=== PATIENT | male | born 1995 | race Caucasian/White ===

== ENCOUNTER 2018-12-09 10:45 | Observation (INO) | payer OTHER ==
[~2018-12-09] VITALS: Ht 172.7 cm; Wt 119.6 kg
[~2018-12-09 10:45] MED LIST: B Complex #11 EACH PO; DICLOFENAC SOD100 G1 TOP; DULO30 PO; Ferrous Sulfat325 MG; HYDACE10B PO; HYDCHL12.5 PO; IBUP800 PO; LAMOTRIGINE OD200 MG PO; LISI5 PO; Lamictal200 MG PO; METF500 PO; MULVITA PO; Multiple Vitam1 EAC1 PO; POLY500 PO; PREG100 PO; Papaya1 EACH PO; Prilosec Otc20 MG; TRAZ100 PO; Vitamin D2000 UNIT PO; Zantac150 MG PO; Zofran8 MG PO; [UNRECOGNIZED DRUG - REMARK]
[2018-12-09] MEDS ORDERED: Norco 5-325 Ta1 EACH (10:55)
--- NOTE | 2018-12-09 11:49 | NUR ---
12/09/18 1149 Danae Segura ([place] O2 INCREASED TO 15L AT [address] FARIAS.
--- NOTE | 2018-12-09 12:44 | NUR ---
12/09/18 1243 Alissa Blackwood PATIENT COMPLAINS OF PAIN MID STERNAL WITH COUGHING, BRINGING UP A LITTLE PHLEGM, COUGHS AND GAGS THEN SMALL EMISIS, WITH INCREASING MID STERNAL PAIN, PAIN IS WORSE WITH BREATHING AND COUGHING AND WORSE WITH EMISIS, STATES HAS MANY RANDOM SIMILAR EPISODES AT HOME WITH EPISODES OF COUGHING HEART BURN AND COUGHING.
[2018-12-09 15:55] LABS: BASOPHILS ABSOLUTE AUTO 0.03 K/mm3 (0.00-0.23); BASOPHILS PERCENT AUTO 1 % (0-2); EOSINOPHILS ABSOLUTE AUTO 0.04 K/mm3 (0.00-0.68); EOSINOPHILS PERCENT AUTO 1 % (0-6); Hematocrit 33.6 % (37.0-53.0); Hemoglobin 9.4 g/dL (13.5-17.5); IMMATURE GRAN ABSOLUTE AUTO 0.03 K/mm3 (0.00-0.10); IMMATURE GRAN PERCENT AUTO 1 % (0-1); LYMPHOCYTES ABSOLUTE AUTO 0.69 K/mm3 (0.84-5.20); LYMPHOCYTES PERCENT AUTO 11 % (21-46); MONOCYTES PERCENT AUTO 5 % (4-13); Mean Corpuscular HGB 22.2 pg (26.0-34.0); Mean Corpuscular Volume 79 fL (80-100); Mean Platelet Volume 11.3 fL (9.1-12.4); NEUTROPHILS ABSOLUTE AUTO 5.01 K/mm3 (1.96-9.15); NEUTROPHILS PERCENT AUTO 82 % (41-73); Platelet Count 262 K/mm3 (150-400); RDW Coefficient Variation 18.8 % (11.7-14.2); RDW Standard Deviation 50.7 fL (35.1-46.3); Red Blood Cell Count 4.24 M/mm3 (4.30-5.90)
[2018-12-09 16:26] LABS: Bun/Creatinine Ratio 8.6 (12.0-20.0); Calcium, Blood 8.1 mg/dL (8.5-10.1); Creatinine, Blood 1.74 mg/dL (0.60-1.20); Potassium, Blood 3.3 mmol/L (3.5-5.5)
--- NOTE | 2018-12-09 16:39 | NUR ---
PATIENT ADMISSION THE PATIENT WAS ADMITTED TO THE MEDICAL FLOOR FROM [facility]. THE PATIENT ARRIVED VIA STRECHER, AFTER REPORT WAS CALLED TO THE FLOOR. THE PATIENT ARRIVED WITH A TEMP OF 103.1 ORAL AND A VIEW SCORE OF 7. DR. PADILLA WAS CALLED AND GIVEN THE REPORT OF THE PATIENT CONDITION. THE PATIENT'S LUNG SOUNDS WERE CLEAR, BUT DIMINISHED. THE PATIENT'S ADMISSION WAS COMPLETED AT THAT TIME.
--- NOTE | 2018-12-10 04:23 | NUR ---
SHIFT SUMMARY: PT IS ALERT AND ORIENTED. PT IS CALM AND COOPERATIVE WITH CARE. PT CALLS APPROPRIATELY. PT IS INDEPENDENT IN THE ROOM. FAMILY IN THE ROOM OVERNIGHT. PT TOOK A SHOWER. PT HAD EPISODE OF EMESIS CAUSED BY THE HICCUPS, STATES THIS IS NORMAL FOR HIM, DID NOT REQUIRE ANY MEDICATION. PT DENIES PAIN, NAUSEA, AND SOB. PT DID NOT SLEEP MUCH OVERNIGHT. SINUS TACH ON TELE. NO ACUTE CHANGES OR COMPLICATIONS THIS SHIFT. WILL REPORT TO DAY NURSE.
[2018-12-10 05:17] LABS: Hematocrit 30.4 % (37.0-53.0); Hemoglobin 8.5 g/dL (13.5-17.5); Mean Corpuscular HGB 22.7 pg (26.0-34.0); Mean Corpuscular Volume 81 fL (80-100); Mean Platelet Volume 11.5 fL (9.1-12.4); Platelet Count 226 K/mm3 (150-400); RDW Coefficient Variation 19.6 % (11.7-14.2); RDW Standard Deviation 55.1 fL (35.1-46.3); Red Blood Cell Count 3.74 M/mm3 (4.30-5.90)
[2018-12-10 05:45] LABS: Creatinine, Blood 1.82 mg/dL (0.60-1.20); Potassium, Blood 3.6 mmol/L (3.5-5.5)
[2018-12-10 05:49] LABS: BAND PERCENT MAN 12 % (0-8); BASOPHILS PERCENT MAN 0 % (0-2); EOSINOPHILS ABSOLUTE MAN 0.11 K/mm3 (0.00-0.68); EOSINOPHILS PERCENT MAN 1 % (0-6); LYMPHOCYTES ABSOLUTE MAN 1.15 K/mm3 (0.84-5.20); LYMPHOCYTES PERCENT MAN 10 % (21-46); MONOCYTES ABSOLUTE MAN 1.15 K/mm3 (0.16-1.47); MONOCYTES PERCENT MAN 10 % (4-13); NEUTROPHILS ABSOLUTE MAN 9.08 K/mm3 (1.96-9.15); SEG NEUTROPHILS PERCENT MAN 67 % (41-73); TOTAL CELLS COUNTED 100
--- NOTE | 2018-12-10 17:04 | NUR ---
SHIFT SUMMARY THE PATIENT PRESENTED THIS SHIFT WITH VITALS WNL, A&O X4 AND WITH CLEAR LUNG SOUNDS. THE PATIENT'S SPOUSE AND CHILD ARE IN THE ROOM WITH THE PATIENT. THE PATIENT HAD AN EPICISODE OF TACHICARDIA (150'S) THIS AFTERNOON WHILE GETTING OUT OF BED, BUT DROPPED BACK TO SR-92 AFTER. THE PATIENT IS PLAYING VIDEO GAMES AT THIS TIME, WILL CONTINUE TO MONITOR.
--- NOTE | 2018-12-10 23:48 | NUR ---
DR ARITA notified of hypertension with lisinopril 5 mg and htcz 12.5 being held due to elevated creatinine 1.82 and tachycardia 110 to 112 average. he co unrelieved pain of 8.5 and says narcotics not usually helpful but he requested his baseline hs lyrica for fibromyalgia. also requested gi cocktail for pain along gi tract. . DR gave rx for 50 mg lyrica po x 1 dose gi cocktail and po hydralazine 25 mg for hypertension. has norco 5 /325 mg po q 6 hours and kpad utilized for complaints of shoulder and kidney pain. recieving his glucophage 500 mg po bid for polycystic kidney disease.
[2018-12-11 05:29] LABS: BASOPHILS ABSOLUTE AUTO 0.04 K/mm3 (0.00-0.23); BASOPHILS PERCENT AUTO 0 % (0-2); EOSINOPHILS ABSOLUTE AUTO 0.11 K/mm3 (0.00-0.68); EOSINOPHILS PERCENT AUTO 1 % (0-6); Hematocrit 28.3 % (37.0-53.0); Hemoglobin 7.8 g/dL (13.5-17.5); IMMATURE GRAN ABSOLUTE AUTO 0.04 K/mm3 (0.00-0.10); IMMATURE GRAN PERCENT AUTO 0 % (0-1); LYMPHOCYTES ABSOLUTE AUTO 2.15 K/mm3 (0.84-5.20); LYMPHOCYTES PERCENT AUTO 21 % (21-46); MONOCYTES ABSOLUTE AUTO 0.85 K/mm3 (0.16-1.47); MONOCYTES PERCENT AUTO 8 % (4-13); Mean Corpuscular HGB 22.5 pg (26.0-34.0); Mean Corpuscular HGB Conc 27.6 g/dL (31.5-36.5); Mean Corpuscular Volume 82 fL (80-100); Mean Platelet Volume 11.7 fL (9.1-12.4); NEUTROPHILS ABSOLUTE AUTO 7.09 K/mm3 (1.96-9.15); NEUTROPHILS PERCENT AUTO 69 % (41-73); Platelet Count 235 K/mm3 (150-400); RDW Coefficient Variation 19.9 % (11.7-14.2); RDW Standard Deviation 57.7 fL (35.1-46.3); Red Blood Cell Count 3.46 M/mm3 (4.30-5.90); White Blood Cell Count 10.28 K/mm3 (4.00-11.30)
[2018-12-11 06:01] LABS: Anion Gap 7 mmol/L (6-16); Blood Urea Nitrogen 20 mg/dL (8-24); Bun/Creatinine Ratio 13.8 (12.0-20.0); CO2, Blood 26 mmol/L (21-32); Calcium, Blood 8.4 mg/dL (8.5-10.1); Chloride, Blood 110 mmol/L (98-108); Creatinine, Blood 1.45 mg/dL (0.60-1.20); Glomerular Filtration Rate >60 (60-); Glucose, Blood 88 mg/dL (70-99); Sodium, Blood 143 mmol/L (136-145)
[2018-12-11] MEDS ORDERED: PANT40 PO (11:56)
[2018-12-11] MEDS ORDERED: PRED10 PO (11:58)
[2018-12-11] MEDS ORDERED: Amoxicillin875 MG PO (11:59)
--- NOTE | 2018-12-11 13:21 | NUR ---
1250 PATIENT HAD IV REMOVED. NO SS OF INFECTION NOTED. PATIENT TOLERATED WELL. NURSE WENT OVER DISCHARGE INSTRUCTIONS WITH PATIENT. NURSE EDUCTED PATIENT REGARDIGN NEW MEDS, MEDS FAXED INTO PHARMACY OF CHOICE. PATIENT INSTRUCTED TO FOLLOW UP WIHT PCP ON THURSDAY. FAMILY TO PACK UP BELONGINGS. PATIENT TAKEN DOWN VIA WC
== END 2018-12-11 10:56 | disposition home or self-care (01) ==
LOC: ORSCSDS 10:45 → MEDS 14:42 → ORSCSDS 14:42 → MEDS 14:42 → ORSCSDS 15:15 → ENPENDDIS 12-11 10:56 → MEDS 12-11 10:56
PROVIDERS: Student in an Organized Health Care Education/Training Program; ADMIT Hospitalist
PROC: 0DB38ZX Excision of Lower Esophagus, Via Natural or Artificial Opening Endoscopic, Diagnostic (ICD-10-PCS; principal; 2018-12-09 12:00)
PROC: 0DB68ZX Excision of Stomach, Via Natural or Artificial Opening Endoscopic, Diagnostic (ICD-10-PCS; principal; 2018-12-09 12:00)
PROC: 0DB98ZX Excision of Duodenum, Via Natural or Artificial Opening Endoscopic, Diagnostic (ICD-10-PCS; principal; 2018-12-09 12:00)
PROC: 0DB18ZX Excision of Upper Esophagus, Via Natural or Artificial Opening Endoscopic, Diagnostic (ICD-10-PCS; principal; 2018-12-09 12:00)
DX: K29.50 Unspecified chronic gastritis without bleeding (principal); K21.0 Gastro-esophageal reflux disease with esophagitis; K44.9 Diaphragmatic hernia without obstruction or gangrene; J18.1 Lobar pneumonia, unspecified organism; J98.11 Atelectasis; I10 Essential (primary) hypertension; D64.9 Anemia, unspecified; G43.909 Migraine, unspecified, not intractable, without status migrainosus; F31.9 Bipolar disorder, unspecified; J45.909 Unspecified asthma, uncomplicated; E74.39 Other disorders of intestinal carbohydrate absorption; G40.909 Epilepsy, unspecified, not intractable, without status epilepticus; Q61.3 Polycystic kidney, unspecified; M79.7 Fibromyalgia; Z79.899 Other long term (current) drug therapy; Z91.048 Other nonmedicinal substance allergy status
CPT/HCPCS: 36415; 71045; 71046; 80048; 82947; 85025; A9270-GY; J0696; J1644; J2250; J2405; J2704; J3480; J7120; J7512

== ENCOUNTER 2019-04-23 19:43 | Emergency (ER) | payer OTHER ==
[~2019-04-23] VITALS: Ht 177.8 cm; Wt 104.3 kg
[~2019-04-23 19:43] MED LIST changes: +Amoxicillin875 MG PO; +Norco 5-325 Ta1 EACH; +PANT40 PO; +PRED10 PO
[2019-04-23 20:26] LABS: BASOPHILS PERCENT AUTO 1 % (0-2); EOSINOPHILS ABSOLUTE AUTO 0.55 K/mm3 (0.00-0.68); EOSINOPHILS PERCENT AUTO 5 % (0-6); Hematocrit 34.1 % (37.0-53.0); Hemoglobin 10.1 g/dL (13.5-17.5); IMMATURE GRAN ABSOLUTE AUTO 0.04 K/mm3 (0.00-0.10); IMMATURE GRAN PERCENT AUTO 0 % (0-1); LYMPHOCYTES ABSOLUTE AUTO 3.36 K/mm3 (0.84-5.20); LYMPHOCYTES PERCENT AUTO 29 % (21-46); MONOCYTES ABSOLUTE AUTO 1.17 K/mm3 (0.16-1.47); MONOCYTES PERCENT AUTO 10 % (4-13); Mean Corpuscular HGB Conc 29.6 g/dL (31.5-36.5); Mean Corpuscular Volume 81 fL (80-100); NEUTROPHILS ABSOLUTE AUTO 6.44 K/mm3 (1.96-9.15); NEUTROPHILS PERCENT AUTO 55 % (41-73); Platelet Count 271 K/mm3 (150-400); RDW Standard Deviation 40.6 fL (35.1-46.3); Red Blood Cell Count 4.21 M/mm3 (4.30-5.90); White Blood Cell Count 11.66 K/mm3 (4.00-11.30)
[2019-04-23 20:30] LABS: Source, Urine Clean Catch
[2019-04-23 20:34] LABS: Bilirubin, Urine Neg (Neg); Blood, Urine 2+ (Neg); Glucose Qualitative, Urine Neg (Neg); Ketones, Urine Neg (Neg); Leukocyte Esterase, Urine 1+ (Neg); Nitrite, Urine Neg (Neg); Protein, Urine 1+ (Neg); Specific Gravity, Urine 1.015 (1.003-1.022); Urobilinogen, Urine NORM (Normal)
[2019-04-23] MEDS ORDERED: LEVE500 PO (20:36)
[2019-04-23 20:38] LABS: Albumin, Blood 3.5 g/dL (3.4-5.0); Albumin/Globulin Ratio 0.9 (0.8-1.8); Bilirubin, Total 0.1 mg/dL (0.1-1.0); Bun/Creatinine Ratio 14.1 (12.0-20.0); Calcium, Blood 9.3 mg/dL (8.5-10.1); Creatinine, Blood 1.63 mg/dL (0.60-1.20); Globulin, Blood 3.9 g/dL (2.2-4.0); Magnesium, Blood 1.9 mg/dL (1.6-2.4); Potassium, Blood 3.4 mmol/L (3.5-5.5); Total Protein, Blood 7.4 g/dL (6.4-8.2)
[2019-04-23 20:45] LABS: U Amphetamine Screen Not Detected; U Barbituate Screen Not Detected; U Benzodiazapine Screen Not Detected; U Buprenorphine Screen Not Detected; U Cannabinoids Screen Not Detected; U Cocaine Screen Not Detected; U Methadone Screen Not Detected; U Methamphetamine Screen Not Detected; U Opiates Screen Not Detected; U Oxycodone Screen Not Detected; U Phencyclidine Screen Not Detected; U Propoxyphene Screen Not Detected
[2019-04-23 20:46] LABS: Appearance, Urine Clear (Clear); Color, Urine Yellow (P-Yellow)
[2019-04-23 20:47] LABS: Bacteria Rare /hpf; Red Blood Cells, Urine 0-2 /hpf (0-2); Squamous Epithelial Cells Rare /hpf (Few); White Blood Cells, Urine 0-2 /hpf (0-5)
== END 2019-04-23 21:49 | disposition home or self-care (01) ==
LOC: ER 19:43
PROVIDERS: Emergency Medicine
DX: R56.9 Unspecified convulsions (principal); Z87.891 Personal history of nicotine dependence; Z79.899 Other long term (current) drug therapy; Z79.52 Long term (current) use of systemic steroids; Z79.84 Long term (current) use of oral hypoglycemic drugs
CPT/HCPCS: 80053; 80175; 81001; 83735; 85025; 87086; 96365; 99284-25; G0480; J1953

== ENCOUNTER 2020-10-06 12:46 | Emergency (ER) | payer OTHER ==
[~2020-10-06] VITALS: Ht 180.3 cm; Wt 111.1 kg
[~2020-10-06 12:46] MED LIST changes: +HYDCHL25; +LAMOTRIGINE100 M1; +LEVE500 PO; +LISI5; +METF500; +OMEP20ER; +TRAZ50
[2020-10-06] MEDS ORDERED: PREG25 (13:05)
== END 2020-10-06 14:16 | disposition home or self-care (01) ==
LOC: ER 12:46
DX: S66.911A Strain of unspecified muscle, fascia and tendon at wrist and hand level, right hand, initial encounter (principal); Z88.8 Allergy status to other drugs, medicaments and biological substances; Z79.84 Long term (current) use of oral hypoglycemic drugs; Z79.899 Other long term (current) drug therapy; V49.50XA Passenger injured in collision with unspecified motor vehicles in traffic accident, initial encounter; Y92.410 Unspecified street and highway as the place of occurrence of the external cause
CPT/HCPCS: 71045; 73030; 73110; 99284-25

== ENCOUNTER 2021-01-26 22:56 | Emergency (ER) | payer OTHER ==
[~2021-01-26] VITALS: Ht 165.1 cm; Wt 111.1 kg
[~2021-01-26 22:56] MED LIST changes: +PREG25
[2021-01-27 01:08] LABS: BASOPHILS PERCENT AUTO 1 % (0-2); EOSINOPHILS ABSOLUTE AUTO 0.09 K/mm3 (0.00-0.68); EOSINOPHILS PERCENT AUTO 1 % (0-6); Hematocrit 31.7 % (37.0-53.0); Hemoglobin 8.8 g/dL (13.5-17.5); IMMATURE GRAN ABSOLUTE AUTO 0.06 K/mm3 (0.00-0.10); IMMATURE GRAN PERCENT AUTO 0 % (0-1); LYMPHOCYTES ABSOLUTE AUTO 2.18 K/mm3 (0.84-5.20); LYMPHOCYTES PERCENT AUTO 15 % (21-46); MONOCYTES ABSOLUTE AUTO 1.46 K/mm3 (0.16-1.47); MONOCYTES PERCENT AUTO 10 % (4-13); Mean Corpuscular HGB 20.8 pg (26.0-34.0); Mean Corpuscular HGB Conc 27.8 g/dL (31.5-36.5); Mean Corpuscular Volume 75 fL (80-100); NEUTROPHILS ABSOLUTE AUTO 10.41 K/mm3 (1.96-9.15); NEUTROPHILS PERCENT AUTO 73 % (41-73); Platelet Count 342 K/mm3 (150-400); RDW Coefficient Variation 15.9 % (11.7-14.2); RDW Standard Deviation 42.9 fL (35.1-46.3); Red Blood Cell Count 4.23 M/mm3 (4.30-5.90)
[2021-01-27 01:28] LABS: Albumin, Blood 3.3 g/dL (3.4-5.0); Albumin/Globulin Ratio 0.6 (0.8-1.8); Bilirubin, Total 0.4 mg/dL (0.1-1.0); Bun/Creatinine Ratio 13.3 (12.0-20.0); Calcium, Blood 9.1 mg/dL (8.5-10.1); Creatinine, Blood 2.1 mg/dL (0.60-1.20); Globulin, Blood 5.4 g/dL (2.2-4.0); Potassium, Blood 3.8 mmol/L (3.5-5.5); Total Protein, Blood 8.7 g/dL (6.4-8.2)
[2021-01-27 02:02] LABS: Source, Urine Clean Catch
[2021-01-27 02:04] LABS: Bilirubin, Urine Neg (Neg); Blood, Urine 1+ (Neg); Glucose Qualitative, Urine Neg (Neg); Ketones, Urine Neg (Neg); Leukocyte Esterase, Urine Neg (Neg); Nitrite, Urine Neg (Neg); Protein, Urine 3+ (Neg); Urobilinogen, Urine NORM (Normal)
[2021-01-27 02:05] LABS: Appearance, Urine Clear (Clear); Color, Urine Yellow (P-Yellow)
[2021-01-27 02:12] LABS: Red Blood Cells, Urine 0-2 /hpf (0-2)
[2021-01-27 02:13] LABS: Amorphous Light (0-Heavy); Bacteria Few /hpf; Hyaline Casts 0-2 /lpf (0-2); Squamous Epithelial Cells Few /hpf (Few)
[2021-01-27] MEDS ORDERED: Cipro250 MG PO ×2 (04:15→04:16)
[2021-01-27] MEDS ORDERED: HYDR1TAB94 PO ×2 (04:15→04:16)
== END 2021-01-27 04:34 | disposition home or self-care (01) ==
LOC: ER 22:56
PROVIDERS: Student in an Organized Health Care Education/Training Program
DX: N28.1 Cyst of kidney, acquired (principal); Z79.84 Long term (current) use of oral hypoglycemic drugs; Z79.899 Other long term (current) drug therapy; Z88.8 Allergy status to other drugs, medicaments and biological substances
CPT/HCPCS: 36415; 74177; 80053; 81001; 85025; 96374; 96375; 99284; A9270; J1790; J2270; J2405; J7030; Q9967

== ENCOUNTER 2021-05-22 15:16 | Emergency (ER) | payer OTHER ==
[~2021-05-22] VITALS: Ht 172.7 cm; Wt 113.8 kg
[~2021-05-22 15:16] MED LIST changes: +ABILIFY MYCITE PO; +Cipro250 MG PO; +HYDR1TAB94 PO
[2021-05-22 15:45] LABS: Source, Urine Clean Catch
[2021-05-22 15:48] LABS: Appearance, Urine Hazy (Clear); Bilirubin, Urine Neg (Neg); Blood, Urine 5+ (Neg); Color, Urine Red (P-Yellow); Glucose Qualitative, Urine Neg (Neg); Ketones, Urine Neg (Neg); Leukocyte Esterase, Urine 2+ (Neg); Nitrite, Urine Neg (Neg); Protein, Urine 3+ (Neg); Urobilinogen, Urine NORM (Normal); pH, Urine 6.5 (5.0-8.0)
[2021-05-22 15:57] LABS: Red Blood Cells, Urine TNTC /hpf (0-2)
[2021-05-22 15:58] LABS: Bacteria Few /hpf; Squamous Epithelial Cells Rare /hpf (Few)
[2021-05-22 16:04] LABS: BASOPHILS ABSOLUTE AUTO 0.12 K/mm3 (0.00-0.23); BASOPHILS PERCENT AUTO 1 % (0-2); EOSINOPHILS ABSOLUTE AUTO 0.36 K/mm3 (0.00-0.68); EOSINOPHILS PERCENT AUTO 4 % (0-6); Hematocrit 29.3 % (37.0-53.0); Hemoglobin 8.1 g/dL (13.5-17.5); IMMATURE GRAN ABSOLUTE AUTO 0.03 K/mm3 (0.00-0.10); IMMATURE GRAN PERCENT AUTO 0 % (0-1); LYMPHOCYTES ABSOLUTE AUTO 1.87 K/mm3 (0.84-5.20); LYMPHOCYTES PERCENT AUTO 19 % (21-46); MONOCYTES ABSOLUTE AUTO 0.81 K/mm3 (0.16-1.47); MONOCYTES PERCENT AUTO 8 % (4-13); Mean Corpuscular HGB 21.3 pg (26.0-34.0); Mean Corpuscular HGB Conc 27.6 g/dL (31.5-36.5); Mean Corpuscular Volume 77 fL (80-100); Mean Platelet Volume 11.5 fL (9.1-12.4); NEUTROPHILS ABSOLUTE AUTO 6.64 K/mm3 (1.96-9.15); NEUTROPHILS PERCENT AUTO 68 % (41-73); Platelet Count 314 K/mm3 (150-400); RDW Coefficient Variation 16.8 % (11.7-14.2); RDW Standard Deviation 45.9 fL (35.1-46.3); Red Blood Cell Count 3.81 M/mm3 (4.30-5.90); White Blood Cell Count 9.83 K/mm3 (4.00-11.30)
[2021-05-22 16:42] LABS: Albumin, Blood 3.4 g/dL (3.4-5.0); Albumin/Globulin Ratio 0.8 (0.8-1.8); Bilirubin, Total 0.2 mg/dL (0.1-1.0); Bun/Creatinine Ratio 14.4 (12.0-20.0); Calcium, Blood 9.2 mg/dL (8.5-10.1); Creatinine, Blood 2.15 mg/dL (0.60-1.20); Globulin, Blood 4.3 g/dL (2.2-4.0); Potassium, Blood 4.1 mmol/L (3.5-5.5); Total Protein, Blood 7.7 g/dL (6.4-8.2)
[2021-05-22] MEDS ORDERED: CIPR500 PO (17:56)
[2021-05-22] MEDS ORDERED: HYDR1TAB94 PO (17:56)
== END 2021-05-22 18:11 | disposition home or self-care (01) ==
LOC: ER 15:16
PROVIDERS: Physician Assistant
DX: N39.0 Urinary tract infection, site not specified (principal); R31.0 Gross hematuria; N23 Unspecified renal colic; I10 Essential (primary) hypertension; G40.909 Epilepsy, unspecified, not intractable, without status epilepticus; K21.9 Gastro-esophageal reflux disease without esophagitis; Z88.8 Allergy status to other drugs, medicaments and biological substances; Z79.899 Other long term (current) drug therapy
CPT/HCPCS: 36415; 80053; 81001; 85025; 87086; 99283

== ENCOUNTER 2021-10-19 04:08 | Emergency (ER) | payer OTHER ==
[~2021-10-19] VITALS: Ht 180.3 cm; Wt 111.1 kg
[~2021-10-19 04:08] MED LIST changes: -ABILIFY MYCITE PO; +ABILIFY MYCITE10 M2 PO; +CIPR500 PO; -LAMOTRIGINE100 M1; +LAMOTRIGINE100 M1 PO; -PREG25; +PREG75 PO
[2021-10-19 05:04] LABS: Source, Urine Clean Catch
[2021-10-19 05:10] LABS: BASOPHILS ABSOLUTE AUTO 0.07 K/mm3 (0.00-0.23); BASOPHILS PERCENT AUTO 1 % (0-2); EOSINOPHILS PERCENT AUTO 0 % (0-6); Hematocrit 30.6 % (37.0-53.0); Hemoglobin 8.3 g/dL (13.5-17.5); IMMATURE GRAN ABSOLUTE AUTO 0.06 K/mm3 (0.00-0.10); IMMATURE GRAN PERCENT AUTO 0 % (0-1); LYMPHOCYTES ABSOLUTE AUTO 1.13 K/mm3 (0.84-5.20); LYMPHOCYTES PERCENT AUTO 8 % (21-46); MONOCYTES ABSOLUTE AUTO 1.29 K/mm3 (0.16-1.47); MONOCYTES PERCENT AUTO 9 % (4-13); Mean Corpuscular HGB 20.6 pg (26.0-34.0); Mean Corpuscular HGB Conc 27.1 g/dL (31.5-36.5); Mean Corpuscular Volume 76 fL (80-100); Mean Platelet Volume 11.3 fL (9.1-12.4); NEUTROPHILS ABSOLUTE AUTO 11.91 K/mm3 (1.96-9.15); NEUTROPHILS PERCENT AUTO 82 % (41-73); Platelet Count 329 K/mm3 (150-400); RDW Coefficient Variation 15.6 % (11.7-14.2); RDW Standard Deviation 42.4 fL (35.1-46.3); Red Blood Cell Count 4.03 M/mm3 (4.30-5.90); White Blood Cell Count 14.46 K/mm3 (4.00-11.30)
[2021-10-19 05:11] LABS: Bilirubin, Urine Neg (Neg); Blood, Urine 5+ (Neg); Glucose Qualitative, Urine Neg (Neg); Ketones, Urine Neg (Neg); Leukocyte Esterase, Urine 1+ (Neg); Nitrite, Urine Neg (Neg); Protein, Urine 3+ (Neg); Specific Gravity, Urine 1.015 (1.003-1.022); Urobilinogen, Urine NORM (Normal)
[2021-10-19 05:24] LABS: Albumin, Blood 3.3 g/dL (3.4-5.0); Albumin/Globulin Ratio 0.8 (0.8-1.8); Bilirubin, Total 0.4 mg/dL (0.1-1.0); Calcium, Blood 9.5 mg/dL (8.5-10.1); Creatinine, Blood 2.37 mg/dL (0.60-1.20); Potassium, Blood 3.4 mmol/L (3.5-5.5); Total Protein, Blood 7.3 g/dL (6.4-8.2)
[2021-10-19 05:25] LABS: Appearance, Urine Hazy (Clear); Color, Urine Yellow (P-Yellow)
[2021-10-19 05:26] LABS: Amorphous Mod (0-Heavy); Bacteria Rare /hpf; Red Blood Cells, Urine TNTC /hpf (0-2); Squamous Epithelial Cells Not Seen /hpf (Few)
== END 2021-10-19 07:32 | disposition home or self-care (01) ==
LOC: ER 04:08
PROVIDERS: Student in an Organized Health Care Education/Training Program
DX: R10.13 Epigastric pain (principal); R10.11 Right upper quadrant pain; Z88.8 Allergy status to other drugs, medicaments and biological substances; Z79.899 Other long term (current) drug therapy
CPT/HCPCS: 36415; 71045; 74177; 80053; 81001; 83605; 83690; 85025; 87086; A9270; J2270; J2405; J7030; Q9967

== ENCOUNTER 2021-10-20 20:41 | Inpatient (IN) | payer OTHER ==
[~2021-10-20] VITALS: Ht 180.3 cm; Wt 111.1 kg
[2021-10-20 20:57] LABS: BASOPHILS ABSOLUTE AUTO 0.07 K/mm3 (0.00-0.23); BASOPHILS PERCENT AUTO 0 % (0-2); EOSINOPHILS PERCENT AUTO 0 % (0-6); Hematocrit 27.3 % (37.0-53.0); Hemoglobin 7.5 g/dL (13.5-17.5); IMMATURE GRAN ABSOLUTE AUTO 0.12 K/mm3 (0.00-0.10); IMMATURE GRAN PERCENT AUTO 1 % (0-1); LYMPHOCYTES ABSOLUTE AUTO 1.37 K/mm3 (0.84-5.20); LYMPHOCYTES PERCENT AUTO 7 % (21-46); MONOCYTES ABSOLUTE AUTO 2.27 K/mm3 (0.16-1.47); MONOCYTES PERCENT AUTO 12 % (4-13); Mean Corpuscular HGB 20.6 pg (26.0-34.0); Mean Corpuscular HGB Conc 27.5 g/dL (31.5-36.5); Mean Corpuscular Volume 75 fL (80-100); Mean Platelet Volume 11.1 fL (9.1-12.4); NEUTROPHILS ABSOLUTE AUTO 15.62 K/mm3 (1.96-9.15); NEUTROPHILS PERCENT AUTO 80 % (41-73); Platelet Count 284 K/mm3 (150-400); RDW Coefficient Variation 15.9 % (11.7-14.2); RDW Standard Deviation 43.8 fL (35.1-46.3); Red Blood Cell Count 3.64 M/mm3 (4.30-5.90); White Blood Cell Count 19.45 K/mm3 (4.00-11.30)
[2021-10-20 21:13] LABS: Albumin, Blood 2.7 g/dL (3.4-5.0); Albumin/Globulin Ratio 0.6 (0.8-1.8); Bilirubin, Total 0.8 mg/dL (0.1-1.0); Bun/Creatinine Ratio 7.7 (12.0-20.0); Calcium, Blood 8.5 mg/dL (8.5-10.1); Creatinine, Blood 2.47 mg/dL (0.60-1.20); Globulin, Blood 4.3 g/dL (2.2-4.0); Potassium, Blood 3.1 mmol/L (3.5-5.5)
[2021-10-20 21:58] LABS: Source, Urine Clean Catch
[2021-10-20 22:01] LABS: Bilirubin, Urine Neg (Neg); Blood, Urine 5+ (Neg); Glucose Qualitative, Urine Neg (Neg); Ketones, Urine 1+ (Neg); Leukocyte Esterase, Urine 1+ (Neg); Nitrite, Urine Neg (Neg); Protein, Urine 3+ (Neg); Specific Gravity, Urine 1.015 (1.003-1.022); Urobilinogen, Urine NORM (Normal)
[2021-10-20 22:06] LABS: Appearance, Urine Hazy (Clear); Color, Urine Pale Yellow (P-Yellow)
[2021-10-20 22:07] LABS: Amorphous Light (0-Heavy); Bacteria Mod /hpf; Mucus Mod (0-Heavy); Squamous Epithelial Cells Few /hpf (Few)
[2021-10-21] MEDS ORDERED: FERSU300 PO (03:49)
[2021-10-21] MEDS ORDERED: KLOR-CON 1010 ME6 PO (03:50)
[2021-10-21] MEDS ORDERED: Acerola C500 MG PO (03:51)
--- NOTE | 2021-10-21 06:32 | NUR ---
SHIFT SUMMARY PT WAS A NEW ADMIT DURING THE NIGHT, ARRIVING ON THE FLOOR AT 0328. HE IS 26 Y/O MALE, ADMITTED FOR SEPSIS AND UTI. PT IS 1PA TO THE [facility] [place]. PT REPORTS SEVERE R-SIDE PAIN THAT RADIATES TO THE R-FLANK, WITH HX OF POLYCYSTIC KIDNEY DISEASE. MEDICATED WITH PRN FENTANYL. PT REPORTED NAUSEA PRIOR TO ARRIVAL, THOUGH NONE REPORTED SINCE ARRIVAL ON THE FLOOR. PT CURRENTLY ON 4L O2, SATTING > 96%. ALL OTHER VITALS STABLE. NO ACUTE CHANGES IN PT CONDITION NOTED SINCE ARRIVAL. WILL CONTINUE TO MONITOR AND TREAT PER EMAR UNTIL HAND OFF TO DAY SHIFT RN.
[2021-10-21] MEDS ORDERED: Prinivil10 MG PO (16:50)
[2021-10-21] MEDS ORDERED: OMEP20ER PO (16:50)
[2021-10-21] MEDS ORDERED: VITAMIN D31000 UNI1 PO (16:51)
[2021-10-21] MEDS ORDERED: AMLODIPINE BESYL5 MG PO (17:02)
--- NOTE | 2021-10-22 02:54 | NUR ---
ENTRY LEVEL STAFF ACCOUNTANT SUMMARY PATIENT ALERT AND ORIENTED. HE DID HAVE A FAIR SHIFT. HAD HIS PAIN MED NEEDED. STATED HE WAS HAVING A COUGHING SPELL AND NEEDING A COUGH MEDICATION. GOT AN ORDER FOR COUGH SYRUP AND SAME WAS ADMINISTERED. HE ALSO HAD A HIS NAUSEA MEDICATION. HIS V/S WERE STABLE. WILL CONTINUE TO MONITOR HIM.
[2021-10-22 05:23] LABS: BASOPHILS ABSOLUTE AUTO 0.07 K/mm3 (0.00-0.23); BASOPHILS PERCENT AUTO 1 % (0-2); EOSINOPHILS ABSOLUTE AUTO 0.29 K/mm3 (0.00-0.68); EOSINOPHILS PERCENT AUTO 3 % (0-6); Hematocrit 23.6 % (37.0-53.0); Hemoglobin 6.2 g/dL (13.5-17.5); IMMATURE GRAN ABSOLUTE AUTO 0.05 K/mm3 (0.00-0.10); IMMATURE GRAN PERCENT AUTO 0 % (0-1); LYMPHOCYTES ABSOLUTE AUTO 1.22 K/mm3 (0.84-5.20); LYMPHOCYTES PERCENT AUTO 11 % (21-46); MONOCYTES PERCENT AUTO 10 % (4-13); Mean Corpuscular HGB 20.7 pg (26.0-34.0); Mean Corpuscular HGB Conc 26.3 g/dL (31.5-36.5); Mean Corpuscular Volume 79 fL (80-100); Mean Platelet Volume 11.2 fL (9.1-12.4); NEUTROPHILS ABSOLUTE AUTO 8.72 K/mm3 (1.96-9.15); NEUTROPHILS PERCENT AUTO 76 % (41-73); Platelet Count 241 K/mm3 (150-400); RDW Coefficient Variation 15.9 % (11.7-14.2); RDW Standard Deviation 45.3 fL (35.1-46.3); White Blood Cell Count 11.45 K/mm3 (4.00-11.30)
[2021-10-22 05:50] LABS: Albumin, Blood 2.3 g/dL (3.4-5.0); Albumin/Globulin Ratio 0.5 (0.8-1.8); Bilirubin, Total 0.4 mg/dL (0.1-1.0); Bun/Creatinine Ratio 9.1 (12.0-20.0); Calcium, Blood 7.6 mg/dL (8.5-10.1); Creatinine, Blood 2.2 mg/dL (0.60-1.20); Globulin, Blood 4.3 g/dL (2.2-4.0); Potassium, Blood 3.7 mmol/L (3.5-5.5); Total Protein, Blood 6.6 g/dL (6.4-8.2)
[2021-10-22 08:40] LABS: Hematocrit 22.9 % (37.0-53.0); Hemoglobin 6.1 g/dL (13.5-17.5); Mean Corpuscular HGB 20.9 pg (26.0-34.0); Mean Corpuscular HGB Conc 26.6 g/dL (31.5-36.5); Mean Corpuscular Volume 78 fL (80-100); Mean Platelet Volume 10.9 fL (9.1-12.4); Platelet Count 236 K/mm3 (150-400); RDW Coefficient Variation 15.9 % (11.7-14.2); RDW Standard Deviation 45.2 fL (35.1-46.3); Red Blood Cell Count 2.92 M/mm3 (4.30-5.90); White Blood Cell Count 10.77 K/mm3 (4.00-11.30)
[2021-10-22 11:31] LABS: Influenza A, PCR NEGATIVE (NEGATIVE); Influenza B, PCR NEGATIVE (NEGATIVE); Resp Syncytial Virus, PCR NEGATIVE (NEGATIVE); SARS-Cov-2 (COVID-19) PCR, MMC NEGATIVE (NEGATIVE)
--- NOTE | 2021-10-22 15:21 | NUR ---
SHIFT SUMMARY PATIENT ALERT AND ORIENTED X4, ABLE TO VERBALIZE NEEDS. C/O OF RIGHT FLANK PAIN AND NAUSEA, PRN MEDICATION ADMINISTRATED PER EMAR AND EFFECTIVE, ON OXYGEN 2L/MIN FOR COMFORT. HGB 6.1 THIS MORNING. ORDER RECEIVED FROM DR MARTINEZ TO TRANSFUSE TWO UNITS OF PRBC. TRANSFUSING SECOND UNIT AT THIS TIME. HAS A LOW FEVER, 99, DR MARTINEZ NOTOFIED, ORDER RECEIVED FOR TYLENOL AND ADMINISTRATED. OTHER V/S WNL. WILL CONTINUE TO MONITOR.
--- NOTE | 2021-10-23 01:35 | NUR ---
TILE MOLDER HAND SUMMARY PATIENT HAD A FAIR SHIFT. STILL REQUIRING MORE PAIN MED, EACH TIME IS 10/10. HIS V/S REMAINED STABLE. HE GOT HIS PAIN MED MED NEEDED. WILL CONTINUE TO MONITOR HIM.
[2021-10-23 04:41] LABS: BASOPHILS ABSOLUTE AUTO 0.08 K/mm3 (0.00-0.23); BASOPHILS PERCENT AUTO 1 % (0-2); EOSINOPHILS ABSOLUTE AUTO 0.67 K/mm3 (0.00-0.68); EOSINOPHILS PERCENT AUTO 6 % (0-6); Hematocrit 25.7 % (37.0-53.0); Hemoglobin 7.1 g/dL (13.5-17.5); IMMATURE GRAN ABSOLUTE AUTO 0.04 K/mm3 (0.00-0.10); IMMATURE GRAN PERCENT AUTO 0 % (0-1); LYMPHOCYTES ABSOLUTE AUTO 1.39 K/mm3 (0.84-5.20); LYMPHOCYTES PERCENT AUTO 13 % (21-46); MONOCYTES ABSOLUTE AUTO 0.96 K/mm3 (0.16-1.47); MONOCYTES PERCENT AUTO 9 % (4-13); Mean Corpuscular HGB 22.4 pg (26.0-34.0); Mean Corpuscular HGB Conc 27.6 g/dL (31.5-36.5); Mean Corpuscular Volume 81 fL (80-100); Mean Platelet Volume 10.7 fL (9.1-12.4); NEUTROPHILS ABSOLUTE AUTO 7.31 K/mm3 (1.96-9.15); NEUTROPHILS PERCENT AUTO 70 % (41-73); Platelet Count 223 K/mm3 (150-400); RDW Standard Deviation 47.7 fL (35.1-46.3); Red Blood Cell Count 3.17 M/mm3 (4.30-5.90); White Blood Cell Count 10.45 K/mm3 (4.00-11.30)
[2021-10-23 05:10] LABS: Alanine Aminotransfer (ALT/SGP 34 U/L (12-78); Albumin, Blood 2.2 g/dL (3.4-5.0); Albumin/Globulin Ratio 0.5 (0.8-1.8); Alk Phos 127 U/L (50-136); Anion Gap 6 mmol/L (6-16); Aspartate Aminotrans (AST/SGOT 21 U/L (12-37); Bilirubin, Total 0.4 mg/dL (0.1-1.0); Blood Urea Nitrogen 20 mg/dL (8-24); Bun/Creatinine Ratio 9.1 (12.0-20.0); CO2, Blood 23 mmol/L (21-32); Calcium, Blood 7.8 mg/dL (8.5-10.1); Chloride, Blood 110 mmol/L (98-108); Creatinine, Blood 2.19 mg/dL (0.60-1.20); Globulin, Blood 4.2 g/dL (2.2-4.0); Glomerular Filtration Rate 36 (60-); Glucose, Blood 88 mg/dL (70-99); Magnesium, Blood 2.1 mg/dL (1.6-2.4); Phosphorus, Blood 2.5 mg/dL (2.5-4.9); Potassium, Blood 4.1 mmol/L (3.5-5.5); Sodium, Blood 139 mmol/L (136-145); Total Protein, Blood 6.4 g/dL (6.4-8.2)
[2021-10-23 05:31] LABS: C-REACTIVE PROTEIN, EXT RANGE >19.000 mg/dL (0.000-0.300)
--- NOTE | 2021-10-23 16:51 | NUR ---
SHIFT SUMMARY PATIENT ALERT AND ORIENTED X4, ABLE TO VERBALIZE NEEDS. C/O OF RIGHT FLANK PAIN AND NAUSEA, PRN MEDICATION ADMINISTRATED PER EMAR AND EFFECTIVE, ON OXYGEN 2L/MIN FOR COMFORT. HGB 7.1 THIS MORNING. ORDER RECEIVED FROM DR MARTINEZ TO TRANSFUSE TWO UNITS OF PRBC. 1ST UNIT COMPLETED. PATIENT NOT ABLE TO EMPTY HIS BLADDER, BLADDER SCAN SHOWED > 500ML OF URINE IN BLADDER. ORDER RECEIVED FROM DR MARTINEZ TO INSERT A MCCARTNEY CATH. MCCARTNEY CATH STARTED, UA SAMPLE COLLECTED PER PROTOCOL. PATIENT TOLERATED WELL.
[2021-10-23 17:02] LABS: Hematocrit 28.6 % (37.0-53.0); Hemoglobin 8.2 g/dL (13.5-17.5); Mean Corpuscular HGB 22.9 pg (26.0-34.0); Mean Corpuscular HGB Conc 28.7 g/dL (31.5-36.5); Mean Corpuscular Volume 80 fL (80-100); Mean Platelet Volume 10.5 fL (9.1-12.4); Platelet Count 267 K/mm3 (150-400); RDW Coefficient Variation 16.2 % (11.7-14.2); RDW Standard Deviation 47.4 fL (35.1-46.3); Red Blood Cell Count 3.58 M/mm3 (4.30-5.90); White Blood Cell Count 11.47 K/mm3 (4.00-11.30)
[2021-10-23 17:59] LABS: Source, Urine Foley catheter
[2021-10-23 18:04] LABS: Bilirubin, Urine Neg (Neg); Blood, Urine 4+ (Neg); Glucose Qualitative, Urine Neg (Neg); Ketones, Urine Neg (Neg); Leukocyte Esterase, Urine Neg (Neg); Nitrite, Urine Neg (Neg); Protein, Urine 1+ (Neg); Urobilinogen, Urine NORM (Normal)
[2021-10-23 18:09] LABS: Appearance, Urine Clear (Clear); Color, Urine Pale Yellow (P-Yellow)
[2021-10-23 18:11] LABS: Bacteria Rare /hpf; Squamous Epithelial Cells Rare /hpf (Few); White Blood Cells, Urine 0-2 /hpf (0-5)
[2021-10-24 05:09] LABS: BASOPHILS ABSOLUTE AUTO 0.07 K/mm3 (0.00-0.23); BASOPHILS PERCENT AUTO 1 % (0-2); EOSINOPHILS ABSOLUTE AUTO 0.61 K/mm3 (0.00-0.68); EOSINOPHILS PERCENT AUTO 7 % (0-6); Hematocrit 27.2 % (37.0-53.0); Hemoglobin 7.6 g/dL (13.5-17.5); IMMATURE GRAN ABSOLUTE AUTO 0.05 K/mm3 (0.00-0.10); IMMATURE GRAN PERCENT AUTO 1 % (0-1); LYMPHOCYTES ABSOLUTE AUTO 1.44 K/mm3 (0.84-5.20); LYMPHOCYTES PERCENT AUTO 16 % (21-46); MONOCYTES ABSOLUTE AUTO 0.85 K/mm3 (0.16-1.47); MONOCYTES PERCENT AUTO 9 % (4-13); Mean Corpuscular HGB Conc 27.9 g/dL (31.5-36.5); Mean Corpuscular Volume 79 fL (80-100); Mean Platelet Volume 10.6 fL (9.1-12.4); NEUTROPHILS ABSOLUTE AUTO 6.21 K/mm3 (1.96-9.15); NEUTROPHILS PERCENT AUTO 67 % (41-73); Platelet Count 267 K/mm3 (150-400); RDW Standard Deviation 48.2 fL (35.1-46.3); Red Blood Cell Count 3.46 M/mm3 (4.30-5.90); White Blood Cell Count 9.23 K/mm3 (4.00-11.30)
[2021-10-24 05:40] LABS: Albumin, Blood 2.1 g/dL (3.4-5.0); Albumin/Globulin Ratio 0.5 (0.8-1.8); Bilirubin, Total 0.2 mg/dL (0.1-1.0); Bun/Creatinine Ratio 9.2 (12.0-20.0); C-REACTIVE PROTEIN, EXT RANGE 12.5 mg/dL (0.000-0.300); Calcium, Blood 8.1 mg/dL (8.5-10.1); Creatinine, Blood 1.84 mg/dL (0.60-1.20); Globulin, Blood 4.2 g/dL (2.2-4.0); Magnesium, Blood 2.1 mg/dL (1.6-2.4); Phosphorus, Blood 2.3 mg/dL (2.5-4.9); Potassium, Blood 4.1 mmol/L (3.5-5.5); Total Protein, Blood 6.3 g/dL (6.4-8.2)
--- NOTE | 2021-10-24 16:58 | NUR ---
DAY SHIFT SUMMARY 26 YR OLD PT ADMITTED FOR SEPSIS, RUPTURED CYST IN KIDNEY, SEVERE PAIN. MEDICATED FOR PAIN PER EMAR. MCCARTNEY CATH INTACT AND PATENT, DRAINING VIA GRAVITY WITH REDISH URINE OUTPUT. O2 2L NC. CALL LIGHT WITHIN REACH AND ABLE TO CALL APPROPRIATELY. FAMILY AT BEDSIDE.
--- NOTE | 2021-10-25 03:14 | NUR ---
0210 MD NOTIFIED PT REPORTS OCCASSIONAL BLURRED VISION WITH "DARK SPOTS AND ZIGZAG PATTERN".- NO INTERVENTIONS AT THIS TIME WILL CONTINUE TO MONITOR.
[2021-10-25 04:46] LABS: BASOPHILS ABSOLUTE AUTO 0.06 K/mm3 (0.00-0.23); BASOPHILS PERCENT AUTO 1 % (0-2); EOSINOPHILS ABSOLUTE AUTO 0.36 K/mm3 (0.00-0.68); EOSINOPHILS PERCENT AUTO 4 % (0-6); Hematocrit 28.1 % (37.0-53.0); Hemoglobin 7.8 g/dL (13.5-17.5); IMMATURE GRAN ABSOLUTE AUTO 0.06 K/mm3 (0.00-0.10); IMMATURE GRAN PERCENT AUTO 1 % (0-1); LYMPHOCYTES ABSOLUTE AUTO 1.29 K/mm3 (0.84-5.20); LYMPHOCYTES PERCENT AUTO 13 % (21-46); MONOCYTES ABSOLUTE AUTO 0.72 K/mm3 (0.16-1.47); MONOCYTES PERCENT AUTO 7 % (4-13); Mean Corpuscular HGB 22.3 pg (26.0-34.0); Mean Corpuscular HGB Conc 27.8 g/dL (31.5-36.5); Mean Corpuscular Volume 80 fL (80-100); Mean Platelet Volume 10.2 fL (9.1-12.4); NEUTROPHILS ABSOLUTE AUTO 7.28 K/mm3 (1.96-9.15); NEUTROPHILS PERCENT AUTO 75 % (41-73); Platelet Count 288 K/mm3 (150-400); RDW Coefficient Variation 17.2 % (11.7-14.2); RDW Standard Deviation 50.2 fL (35.1-46.3); White Blood Cell Count 9.77 K/mm3 (4.00-11.30)
[2021-10-25 05:13] LABS: Albumin, Blood 2.2 g/dL (3.4-5.0); Albumin/Globulin Ratio 0.5 (0.8-1.8); Bilirubin, Total 0.3 mg/dL (0.1-1.0); Bun/Creatinine Ratio 7.7 (12.0-20.0); C-REACTIVE PROTEIN, EXT RANGE 8.28 mg/dL (0.000-0.300); Calcium, Blood 8.4 mg/dL (8.5-10.1); Creatinine, Blood 1.68 mg/dL (0.60-1.20); Globulin, Blood 4.2 g/dL (2.2-4.0); Magnesium, Blood 2.1 mg/dL (1.6-2.4); Phosphorus, Blood 3.1 mg/dL (2.5-4.9); Potassium, Blood 4.4 mmol/L (3.5-5.5); Total Protein, Blood 6.4 g/dL (6.4-8.2)
--- NOTE | 2021-10-25 05:31 | NUR ---
SHIFT SUMMARY: A/OX4, PT AMBULATORY STANDBY ASSIST WITH FRONT WHEEL WALKER AMBULATING TO BATHROOM. PT HAD MEDIUM BM THIS SHIFT. MCCARTNEY CATHETER IN PLACE DRAINING PROPERLY- PINK TINGED URINE. PAIN MANAGEMENT GOAL PER EMAR. PT HAD EMESIS EPISODE AT BEGINNING OF SHIFT WHEN SWALLOWING MEDICATIONS, RELIEVED WITH ZOFRAN. BED ALARM REMAINED ACTIVATED, BED IN LOW POSITION, CALL JEAN BAPTISTE AND BELONGINGS IN REACH.
--- NOTE | 2021-10-25 17:10 | NUR ---
DAY SHIFT SUMMARY 26 YR OLD MALE PT ADMITTED FOR SEPSIS/UTI. CALL LIGHT WITHIN REACH AND ABLE TO CALL APPROPRIATE. A/O X4. O2 WEENED DOWN TO RA. PT STATES EARLIER THIS MORNING THAT WHEN HE WOKE UP HIS VISION WAS BLURY FOR A FEW MOMENTS BEFORE CLEARING UP, DENIES ANY HEAD OR NECK PAIN AT THE TIME. STATES HE SPOKE WITH THE MD ABOUT IT WHEN THEY ROUNDED.
--- NOTE | 2021-10-26 04:42 | NUR ---
SHIFT SUMMARY ADMITTED FOR UTI/SEPSIS. FULL CODE. PLAN IS FOR DC HOME W/FAMILY WHEN STABLE. MCCARTNEY CATHETER IN PLACE FOR RETENTION. POSSIBLE RUPTURED CYST. 1 LPM O2, RA @ HOME. PRN PAIN AND NAUSEA MEDICATION GIVEN THIS SHIFT. NS INFUSING @ 125 ML/HR. 1 ASSIST W/FWW - BRP.
[2021-10-26 05:23] LABS: Hematocrit 27.4 % (37.0-53.0); Hemoglobin 7.9 g/dL (13.5-17.5); Mean Corpuscular HGB 22.9 pg (26.0-34.0); Mean Corpuscular HGB Conc 28.8 g/dL (31.5-36.5); Mean Corpuscular Volume 79 fL (80-100); Mean Platelet Volume 10.4 fL (9.1-12.4); Platelet Count 306 K/mm3 (150-400); RDW Coefficient Variation 18.2 % (11.7-14.2); RDW Standard Deviation 50.7 fL (35.1-46.3); Red Blood Cell Count 3.45 M/mm3 (4.30-5.90); White Blood Cell Count 9.95 K/mm3 (4.00-11.30)
[2021-10-26 05:44] LABS: Albumin, Blood 2.2 g/dL (3.4-5.0); Albumin/Globulin Ratio 0.5 (0.8-1.8); Bilirubin, Total 0.2 mg/dL (0.1-1.0); Bun/Creatinine Ratio 6.2 (12.0-20.0); C-REACTIVE PROTEIN, EXT RANGE 5.38 mg/dL (0.000-0.300); Calcium, Blood 8.3 mg/dL (8.5-10.1); Creatinine, Blood 1.6 mg/dL (0.60-1.20); Globulin, Blood 4.1 g/dL (2.2-4.0); Percent Saturation 7.7 % (20.0-50.0); Potassium, Blood 3.9 mmol/L (3.5-5.5); Total Protein, Blood 6.3 g/dL (6.4-8.2)
--- NOTE | 2021-10-26 12:01 | NUR ---
BIB Garay/Adelfo @ 9215 PER PT REQUEST
--- NOTE | 2021-10-26 17:02 | NUR ---
SHIFT SUMMARY PT RESTING QUIETLY AT START OF SHIFT. WOKE EASILY FOR CARE. PT REQUESTING MCCARTNEY CATH OUT, SO HE COULD TAKE A SHOWER. DR PATE NOTIFIED, NEW ORDERS RECEIVED. MCCARTNEY CATH D/C'D. PT LATER UP TO SHOWER WITH SBA USING FWW. DR PATE HERE TO SEE PT AFTER LUNCH. IVF'S D/C'D. PT EATING AND DRINKING WELL. PT OCCASSIONALLY C/O DIFFICULTY SWALLOWING D/T DEFECT, WHICH HE REPORTS ALSO CAUSES NAUSEA. PT MOSTLY ABLE TO MANAGE ON HIS OWN; REQUESTING ZOFRAN PRN. PT HAS VOIDED WELL ALL DAY, SINCE MCCARTNEY D/C'D. NO C/O URINARY RETENSION. PT HAS SLEPT OFF AND ON ALL DAY. CALLS FOR PAIN MEDS PRN. PAIN LEVEL APPEARS TO BE WELL MANAGED. CALL LT IN REACH. ABLE TO MAKE NEEDS KNOWN.
--- NOTE | 2021-10-27 04:35 | NUR ---
PT IS A&OX4, SBA WITH FWW TO BR AND IS ABLE TO MAKE NEEDS KNOWN. REPORTS NAUSEA, PRN ZOFRAN GIVEN WITH GOOD RESULTS. IS ABLE TO USE BU TO VOID. PILLS NEED TO BE CUT IN HALF IN ORDER FOR PT TO SWALLOW. COMPLAINS OF A MIGRNE, PRN GENECED GIVEN WITH GOOD RESULTS. PT SLEEPS THROUGH THE NIGHT AND CALLS APPROPRIATELY. WILL CONTINUE TO MONITOR.
[2021-10-27 05:50] LABS: Hematocrit 28.1 % (37.0-53.0); Mean Corpuscular HGB 22.6 pg (26.0-34.0); Mean Corpuscular HGB Conc 28.5 g/dL (31.5-36.5); Mean Corpuscular Volume 79 fL (80-100); Mean Platelet Volume 10.4 fL (9.1-12.4); Platelet Count 317 K/mm3 (150-400); RDW Coefficient Variation 18.3 % (11.7-14.2); RDW Standard Deviation 51.8 fL (35.1-46.3); Red Blood Cell Count 3.54 M/mm3 (4.30-5.90); White Blood Cell Count 9.93 K/mm3 (4.00-11.30)
[2021-10-27 06:04] LABS: Albumin, Blood 2.4 g/dL (3.4-5.0); Albumin/Globulin Ratio 0.6 (0.8-1.8); Bilirubin, Total 0.3 mg/dL (0.1-1.0); Calcium, Blood 8.9 mg/dL (8.5-10.1); Creatinine, Blood 1.66 mg/dL (0.60-1.20); Magnesium, Blood 1.8 mg/dL (1.6-2.4); Potassium, Blood 3.6 mmol/L (3.5-5.5); Total Protein, Blood 6.4 g/dL (6.4-8.2)
[2021-10-27] MEDS ORDERED: Flonase 0.05% N16 GM (14:42)
[2021-10-27] MEDS ORDERED: LEVFLO500 PO (14:42)
--- NOTE | 2021-10-27 15:28 | NUR ---
PT AWAKE THIS AM AT START OF SHIFT. PT REPORTED FEELING BETTER. PT DID NOT REQUIRE ANY PAIN MEDICATION THIS SHIFT. DENIED NAUSEA ALL DAY UNTIL LATER THIS AFTERNOON AND ONLY BRIEFLY. DR PATE IN TO SEE PT, WHO REPORTED THAT HE WAS FEELING GREAT. PT STATED NO MORE PAIN TO R SIDE OR BACK. PT EATING, DRINKING, AND VOIDING WELL. PT REQUESTING TO GO HOME. DR PATE PLACED D/C ORDERS. MEDS FAXED PER PT REQUEST. D/C INSTRUCTIONS REVIEWED BY YOGESH RN. PT ASSISTED OUT TO FRIENDS CAR VIA W/C WITH BELONGINGS.
== END 2021-10-27 15:19 | disposition home or self-care (01) | DRG 871 ==
LOC: ER 20:41 → MEDS 20:42 → ER 10-21 01:17 → MEDS 10-21 03:20
PROVIDERS: Family Medicine; Internal Medicine; Student in an Organized Health Care Education/Training Program; ADMIT Internal Medicine
PROC: 30233N1 Transfusion of Nonautologous Red Blood Cells into Peripheral Vein, Percutaneous Approach (ICD-10-PCS; principal; 2021-10-21)
PROC: 3E03329 Introduction of Other Anti-infective into Peripheral Vein, Percutaneous Approach (ICD-10-PCS; 2021-10-21)
DX: A41.9 Sepsis, unspecified organism (principal); J18.9 Pneumonia, unspecified organism; K85.90 Acute pancreatitis without necrosis or infection, unspecified; J15.9 Unspecified bacterial pneumonia; N39.0 Urinary tract infection, site not specified; N17.9 Acute kidney failure, unspecified; N18.30 Chronic kidney disease, stage 3 unspecified; I12.9 Hypertensive chronic kidney disease with stage 1 through stage 4 chronic kidney disease, or unspecified chronic kidney disease; E87.6 Hypokalemia; G40.909 Epilepsy, unspecified, not intractable, without status epilepticus; M79.7 Fibromyalgia; I10 Essential (primary) hypertension; K21.9 Gastro-esophageal reflux disease without esophagitis; D63.1 Anemia in chronic kidney disease; Z88.8 Allergy status to other drugs, medicaments and biological substances; Z90.49 Acquired absence of other specified parts of digestive tract; Z98.890 Other specified postprocedural states
CPT/HCPCS: 0241U; 36415; 36430; 74022; 74176; 80053; 81001; 82728; 83540; 83550; 83605; 83690; 83735; 84100; 84145; 85025; 85027; 86140; 86850; 86900; 86901; 86923; 87040; 87086; 93005; 93010; 96374; 96375; 96376; 99285-25; A9270; G0378; J0456; J0696; J1170; J2270; J2405; J2765; J3010; J7030; J7050; P9016

== ENCOUNTER 2021-10-30 07:27 | Emergency (ER) | payer OTHER ==
[~2021-10-30] VITALS: Ht 180.3 cm; Wt 111.1 kg
[~2021-10-30 07:27] MED LIST changes: +AMLODIPINE BESYL5 MG PO; +Acerola C500 MG PO; +FERSU300 PO; +Flonase 0.05% N16 GM; +KLOR-CON 1010 ME6 PO; +LEVFLO500 PO; +OMEP20ER PO; +Prinivil10 MG PO; +VITAMIN D31000 UNI1 PO
[2021-10-30 08:22] LABS: BASOPHILS ABSOLUTE AUTO 0.07 K/mm3 (0.00-0.23); BASOPHILS PERCENT AUTO 1 % (0-2); EOSINOPHILS ABSOLUTE AUTO 0.46 K/mm3 (0.00-0.68); EOSINOPHILS PERCENT AUTO 5 % (0-6); Hematocrit 30.1 % (37.0-53.0); Hemoglobin 8.6 g/dL (13.5-17.5); IMMATURE GRAN ABSOLUTE AUTO 0.04 K/mm3 (0.00-0.10); IMMATURE GRAN PERCENT AUTO 1 % (0-1); LYMPHOCYTES ABSOLUTE AUTO 1.44 K/mm3 (0.84-5.20); LYMPHOCYTES PERCENT AUTO 17 % (21-46); MONOCYTES ABSOLUTE AUTO 0.59 K/mm3 (0.16-1.47); MONOCYTES PERCENT AUTO 7 % (4-13); Mean Corpuscular HGB 22.7 pg (26.0-34.0); Mean Corpuscular HGB Conc 28.6 g/dL (31.5-36.5); Mean Corpuscular Volume 79 fL (80-100); Mean Platelet Volume 10.3 fL (9.1-12.4); NEUTROPHILS ABSOLUTE AUTO 5.86 K/mm3 (1.96-9.15); NEUTROPHILS PERCENT AUTO 69 % (41-73); Platelet Count 337 K/mm3 (150-400); RDW Coefficient Variation 17.9 % (11.7-14.2); RDW Standard Deviation 50.8 fL (35.1-46.3); Red Blood Cell Count 3.79 M/mm3 (4.30-5.90); White Blood Cell Count 8.46 K/mm3 (4.00-11.30)
[2021-10-30 08:23] LABS: Source, Urine Clean Catch
[2021-10-30 08:27] LABS: Appearance, Urine Cloudy (Clear); Bilirubin, Urine Neg (Neg); Blood, Urine 5+ (Neg); Glucose Qualitative, Urine Neg (Neg); Ketones, Urine Neg (Neg); Leukocyte Esterase, Urine 2+ (Neg); Nitrite, Urine Neg (Neg); Protein, Urine 3+ (Neg); Specific Gravity, Urine 1.015 (1.003-1.022); Urobilinogen, Urine NORM (Normal)
[2021-10-30 08:38] LABS: Color, Urine Red (P-Yellow)
[2021-10-30 08:40] LABS: Bacteria Mod /hpf; Red Blood Cells, Urine TNTC /hpf (0-2); Squamous Epithelial Cells Rare /hpf (Few); White Blood Cells, Urine 50-100 /hpf (0-5)
[2021-10-30 08:45] LABS: Albumin/Globulin Ratio 0.8 (0.8-1.8); Bilirubin, Total 0.3 mg/dL (0.1-1.0); Bun/Creatinine Ratio 7.2 (12.0-20.0); Calcium, Blood 9.5 mg/dL (8.5-10.1); Creatinine, Blood 1.8 mg/dL (0.60-1.20); Potassium, Blood 3.8 mmol/L (3.5-5.5)
[2021-10-30] MEDS ORDERED: HYDACE10B PO (09:56)
[2021-10-31] MEDS ORDERED: ONDA4ODT SL (22:41)
[2021-10-31] MEDS ORDERED: Percocet 5-3251 EACH PO (22:41)
== END 2021-10-30 10:06 | disposition home or self-care (01) ==
LOC: ER 07:27
PROVIDERS: Emergency Medicine
DX: N28.1 Cyst of kidney, acquired (principal); I12.9 Hypertensive chronic kidney disease with stage 1 through stage 4 chronic kidney disease, or unspecified chronic kidney disease; N18.9 Chronic kidney disease, unspecified; D63.1 Anemia in chronic kidney disease; K21.9 Gastro-esophageal reflux disease without esophagitis; Z79.899 Other long term (current) drug therapy
CPT/HCPCS: 74177; 80053; 81001; 85025; 86850; 86900; 86901; 87086; 96374; 96375; 99284-25; J2270; J2405; J7030; Q9967

== ENCOUNTER 2021-10-31 15:33 | Emergency (ER) | payer OTHER ==
[~2021-10-31] VITALS: Ht 180.3 cm; Wt 111.1 kg
[2021-10-31 16:34] LABS: BASOPHILS ABSOLUTE AUTO 0.11 K/mm3 (0.00-0.23); BASOPHILS PERCENT AUTO 2 % (0-2); EOSINOPHILS ABSOLUTE AUTO 0.39 K/mm3 (0.00-0.68); EOSINOPHILS PERCENT AUTO 5 % (0-6); Hematocrit 31.2 % (37.0-53.0); Hemoglobin 8.9 g/dL (13.5-17.5); IMMATURE GRAN ABSOLUTE AUTO 0.02 K/mm3 (0.00-0.10); IMMATURE GRAN PERCENT AUTO 0 % (0-1); LYMPHOCYTES PERCENT AUTO 20 % (21-46); MONOCYTES ABSOLUTE AUTO 0.61 K/mm3 (0.16-1.47); MONOCYTES PERCENT AUTO 8 % (4-13); Mean Corpuscular HGB 22.7 pg (26.0-34.0); Mean Corpuscular HGB Conc 28.5 g/dL (31.5-36.5); Mean Corpuscular Volume 80 fL (80-100); Mean Platelet Volume 10.2 fL (9.1-12.4); NEUTROPHILS ABSOLUTE AUTO 4.82 K/mm3 (1.96-9.15); NEUTROPHILS PERCENT AUTO 65 % (41-73); Platelet Count 372 K/mm3 (150-400); RDW Standard Deviation 51.3 fL (35.1-46.3); Red Blood Cell Count 3.92 M/mm3 (4.30-5.90); White Blood Cell Count 7.45 K/mm3 (4.00-11.30)
[2021-10-31 16:54] LABS: Albumin, Blood 3.2 g/dL (3.4-5.0); Albumin/Globulin Ratio 0.7 (0.8-1.8); Bilirubin, Total 0.2 mg/dL (0.1-1.0); Bun/Creatinine Ratio 9.9 (12.0-20.0); Calcium, Blood 8.9 mg/dL (8.5-10.1); Creatinine, Blood 1.91 mg/dL (0.60-1.20); Globulin, Blood 4.3 g/dL (2.2-4.0); Potassium, Blood 4.1 mmol/L (3.5-5.5); Total Protein, Blood 7.5 g/dL (6.4-8.2)
[2021-10-31 20:41] LABS: Source, Urine Clean Catch
[2021-10-31 20:50] LABS: Appearance, Urine Cloudy (Clear); Bilirubin, Urine Neg (Neg); Blood, Urine 5+ (Neg); Color, Urine Brown (P-Yellow); Glucose Qualitative, Urine Neg (Neg); Ketones, Urine 1+ (Neg); Leukocyte Esterase, Urine 2+ (Neg); Nitrite, Urine Neg (Neg); Protein, Urine 3+ (Neg); Urobilinogen, Urine NORM (Normal)
[2021-10-31 21:03] LABS: Red Blood Cells, Urine TNTC /hpf (0-2); Squamous Epithelial Cells Rare /hpf (Few); White Blood Cells, Urine 50-100 /hpf (0-5)
[2021-10-31 21:04] LABS: Amorphous Heavy (0-Heavy); Bacteria Mod /hpf
[2021-10-31] MEDS ORDERED: ONDA4ODT SL (22:41)
[2021-10-31] MEDS ORDERED: Percocet 5-3251 EACH PO (22:41)
== END 2021-10-31 23:50 | disposition home or self-care (01) ==
LOC: ER 15:33
PROVIDERS: Physician Assistant
DX: R10.9 Unspecified abdominal pain (principal); Q61.3 Polycystic kidney, unspecified; I12.9 Hypertensive chronic kidney disease with stage 1 through stage 4 chronic kidney disease, or unspecified chronic kidney disease; Z88.8 Allergy status to other drugs, medicaments and biological substances; Z79.899 Other long term (current) drug therapy; K21.9 Gastro-esophageal reflux disease without esophagitis; G40.909 Epilepsy, unspecified, not intractable, without status epilepticus; N18.9 Chronic kidney disease, unspecified
CPT/HCPCS: 80053; 81001; 85025; 87077; 87086; 87186; 96374; 96375; 99284-25; A9270; J1170; J2405

== ENCOUNTER 2021-12-10 17:28 | Emergency (ER) | payer OTHER ==
[~2021-12-10] VITALS: Ht 180.3 cm; Wt 103.4 kg
[~2021-12-10 17:28] MED LIST changes: +ONDA4ODT SL; +Percocet 5-3251 EACH PO
[2021-12-10 17:54] LABS: BASOPHILS PERCENT AUTO 1 % (0-2); EOSINOPHILS ABSOLUTE AUTO 0.32 K/mm3 (0.00-0.68); EOSINOPHILS PERCENT AUTO 4 % (0-6); Hematocrit 32.3 % (37.0-53.0); Hemoglobin 9.7 g/dL (13.5-17.5); IMMATURE GRAN ABSOLUTE AUTO 0.03 K/mm3 (0.00-0.10); IMMATURE GRAN PERCENT AUTO 0 % (0-1); LYMPHOCYTES ABSOLUTE AUTO 1.87 K/mm3 (0.84-5.20); LYMPHOCYTES PERCENT AUTO 21 % (21-46); MONOCYTES PERCENT AUTO 8 % (4-13); Mean Corpuscular HGB 24.4 pg (26.0-34.0); Mean Corpuscular Volume 81 fL (80-100); Mean Platelet Volume 11.2 fL (9.1-12.4); NEUTROPHILS ABSOLUTE AUTO 5.91 K/mm3 (1.96-9.15); NEUTROPHILS PERCENT AUTO 66 % (41-73); Platelet Count 301 K/mm3 (150-400); RDW Coefficient Variation 16.4 % (11.7-14.2); RDW Standard Deviation 48.4 fL (35.1-46.3); Red Blood Cell Count 3.97 M/mm3 (4.30-5.90); White Blood Cell Count 8.93 K/mm3 (4.00-11.30)
[2021-12-10 18:11] LABS: Albumin, Blood 3.4 g/dL (3.4-5.0); Albumin/Globulin Ratio 0.9 (0.8-1.8); Bilirubin, Total 0.2 mg/dL (0.1-1.0); Bun/Creatinine Ratio 9.3 (12.0-20.0); Calcium, Blood 9.4 mg/dL (8.5-10.1); Creatinine, Blood 1.94 mg/dL (0.60-1.20); Globulin, Blood 3.7 g/dL (2.2-4.0); Potassium, Blood 4.1 mmol/L (3.5-5.5); Total Protein, Blood 7.1 g/dL (6.4-8.2)
[2021-12-10 19:57] LABS: Source, Urine Clean Catch
[2021-12-10 20:00] LABS: Appearance, Urine Clear (Clear); Bilirubin, Urine Neg (Neg); Blood, Urine 1+ (Neg); Glucose Qualitative, Urine Neg (Neg); Ketones, Urine Neg (Neg); Leukocyte Esterase, Urine Neg (Neg); Nitrite, Urine Neg (Neg); Protein, Urine Neg (Neg); Urobilinogen, Urine NORM (Normal); pH, Urine 6.5 (5.0-8.0)
[2021-12-10 20:15] LABS: Color, Urine Pale Yellow (P-Yellow)
[2021-12-10 20:16] LABS: Bacteria Few /hpf; Red Blood Cells, Urine 0-2 /hpf (0-2); Squamous Epithelial Cells Rare /hpf (Few); White Blood Cells, Urine Rare /hpf (0-5)
[2021-12-10] MEDS ORDERED: TRAM50 PO (20:43)
== END 2021-12-10 21:00 | disposition home or self-care (01) ==
LOC: ER 17:28
PROVIDERS: Emergency Medicine
DX: R10.13 Epigastric pain (principal); D64.89 Other specified anemias; N28.1 Cyst of kidney, acquired; I12.9 Hypertensive chronic kidney disease with stage 1 through stage 4 chronic kidney disease, or unspecified chronic kidney disease; N18.9 Chronic kidney disease, unspecified; K21.9 Gastro-esophageal reflux disease without esophagitis; G40.909 Epilepsy, unspecified, not intractable, without status epilepticus; Z79.899 Other long term (current) drug therapy
CPT/HCPCS: 74177; 80053; 81001; 85025; 86850; 86900; 86901; 96374; 96375; 99285-25; J2270; J2405; Q9967

== ENCOUNTER 2022-05-04 12:34 | Emergency (ER) | payer OTHER ==
[~2022-05-04] VITALS: Ht 175.3 cm; Wt 99.8 kg
[~2022-05-04 12:34] MED LIST changes: +TRAM50 PO
[2022-05-04] MEDS ORDERED: LIDO700A20 TOP (13:42)
[2022-05-04] MEDS ORDERED: NAPR500 PO (13:42)
[2022-05-04] MEDS ORDERED: CYCL10 PO (13:42)
== END 2022-05-04 14:46 | disposition home or self-care (01) ==
LOC: ER 12:34
DX: S16.1XXA Strain of muscle, fascia and tendon at neck level, initial encounter (principal); I12.9 Hypertensive chronic kidney disease with stage 1 through stage 4 chronic kidney disease, or unspecified chronic kidney disease; N18.9 Chronic kidney disease, unspecified; Z87.891 Personal history of nicotine dependence; Z88.8 Allergy status to other drugs, medicaments and biological substances; Z79.899 Other long term (current) drug therapy; X58.XXXA Exposure to other specified factors, initial encounter
CPT/HCPCS: 72040; 99284-25; A9270

== ENCOUNTER 2022-08-25 17:29 | Emergency (ER) | payer OTHER ==
[~2022-08-25] VITALS: Ht 177.8 cm; Wt 84.8 kg
[~2022-08-25 17:29] MED LIST changes: +CYCL10 PO; +LIDO700A20 TOP; +NAPR500 PO
[2022-08-25 17:51] LABS: BASOPHILS ABSOLUTE AUTO 0.09 K/mm3 (0.00-0.23); BASOPHILS PERCENT AUTO 1 % (0-2); EOSINOPHILS ABSOLUTE AUTO 0.17 K/mm3 (0.00-0.68); EOSINOPHILS PERCENT AUTO 1 % (0-6); Hemoglobin 8.8 g/dL (13.5-17.5); IMMATURE GRAN ABSOLUTE AUTO 0.04 K/mm3 (0.00-0.10); IMMATURE GRAN PERCENT AUTO 0 % (0-1); LYMPHOCYTES ABSOLUTE AUTO 0.96 K/mm3 (0.84-5.20); LYMPHOCYTES PERCENT AUTO 7 % (21-46); MONOCYTES ABSOLUTE AUTO 0.95 K/mm3 (0.16-1.47); MONOCYTES PERCENT AUTO 7 % (4-13); Mean Corpuscular HGB 20.7 pg (26.0-34.0); Mean Corpuscular HGB Conc 27.5 g/dL (31.5-36.5); Mean Corpuscular Volume 75 fL (80-100); Mean Platelet Volume 10.9 fL (9.1-12.4); NEUTROPHILS ABSOLUTE AUTO 12.13 K/mm3 (1.96-9.15); NEUTROPHILS PERCENT AUTO 85 % (41-73); Platelet Count 254 K/mm3 (150-400); RDW Coefficient Variation 16.1 % (11.7-14.2); RDW Standard Deviation 43.8 fL (35.1-46.3); Red Blood Cell Count 4.25 M/mm3 (4.30-5.90); White Blood Cell Count 14.34 K/mm3 (4.00-11.30)
[2022-08-25 18:02] LABS: Source, Urine Clean Catch
[2022-08-25 18:04] LABS: Appearance, Urine Clear (Clear); Bilirubin, Urine Neg (Neg); Blood, Urine Neg (Neg); Color, Urine Yellow (P-Yellow); Glucose Qualitative, Urine Neg (Neg); Ketones, Urine Neg (Neg); Leukocyte Esterase, Urine Neg (Neg); Nitrite, Urine Neg (Neg); Protein, Urine 2+ (Neg); Urobilinogen, Urine NORM (Normal)
[2022-08-25 18:13] LABS: Bacteria Rare /hpf; Red Blood Cells, Urine 0-2 /hpf (0-2); Squamous Epithelial Cells Not Seen /hpf (Few); White Blood Cells, Urine 0-2 /hpf (0-5)
[2022-08-25 18:14] LABS: Albumin, Blood 3.6 g/dL (3.4-5.0); Albumin/Globulin Ratio 0.9 (0.8-1.8); Bilirubin, Total 0.4 mg/dL (0.1-1.0); Bun/Creatinine Ratio 8.4 (12.0-20.0); Calcium, Blood 8.8 mg/dL (8.5-10.1); Creatinine, Blood 2.5 mg/dL (0.60-1.20); Globulin, Blood 4.1 g/dL (2.2-4.0); Potassium, Blood 3.2 mmol/L (3.5-5.5); Total Protein, Blood 7.7 g/dL (6.4-8.2)
[2022-08-25 21:14] LABS: Influenza A, PCR NEGATIVE (NEGATIVE); Influenza B, PCR NEGATIVE (NEGATIVE); Resp Syncytial Virus, PCR NEGATIVE (NEGATIVE); SARS-Cov-2 (COVID-19) PCR, MMC NEGATIVE (NEGATIVE)
[2022-08-25] MEDS ORDERED: LEVFLO500 PO (22:24)
== END 2022-08-25 22:45 | disposition home or self-care (01) ==
LOC: ER 17:29
PROVIDERS: Emergency Medicine; Physician Assistant
DX: Q61.3 Polycystic kidney, unspecified (principal); N05.9 Unspecified nephritic syndrome with unspecified morphologic changes; Z79.899 Other long term (current) drug therapy; Z88.8 Allergy status to other drugs, medicaments and biological substances; Z87.891 Personal history of nicotine dependence; Z20.822 Contact with and (suspected) exposure to COVID-19
CPT/HCPCS: 0241U; 36415; 74177; 80053; 81001; 85025; 96374-59; 96375; 99284-25; A9270; J0696; J1170; J2270; J2405; Q9967

== ENCOUNTER 2022-08-26 16:20 | Emergency (ER) | payer OTHER ==
[~2022-08-26] VITALS: Ht 177.8 cm; Wt 95.2 kg
[2022-08-26 17:22] LABS: BASOPHILS ABSOLUTE AUTO 0.08 K/mm3 (0.00-0.23); BASOPHILS PERCENT AUTO 1 % (0-2); EOSINOPHILS ABSOLUTE AUTO 0.32 K/mm3 (0.00-0.68); EOSINOPHILS PERCENT AUTO 4 % (0-6); Hematocrit 29.2 % (37.0-53.0); Hemoglobin 8.2 g/dL (13.5-17.5); IMMATURE GRAN ABSOLUTE AUTO 0.02 K/mm3 (0.00-0.10); IMMATURE GRAN PERCENT AUTO 0 % (0-1); LYMPHOCYTES ABSOLUTE AUTO 1.43 K/mm3 (0.84-5.20); LYMPHOCYTES PERCENT AUTO 18 % (21-46); MONOCYTES PERCENT AUTO 9 % (4-13); Mean Corpuscular HGB 21.1 pg (26.0-34.0); Mean Corpuscular HGB Conc 28.1 g/dL (31.5-36.5); Mean Corpuscular Volume 75 fL (80-100); Mean Platelet Volume 10.8 fL (9.1-12.4); NEUTROPHILS ABSOLUTE AUTO 5.31 K/mm3 (1.96-9.15); NEUTROPHILS PERCENT AUTO 68 % (41-73); Platelet Count 227 K/mm3 (150-400); RDW Coefficient Variation 16.3 % (11.7-14.2); Red Blood Cell Count 3.88 M/mm3 (4.30-5.90); White Blood Cell Count 7.86 K/mm3 (4.00-11.30)
[2022-08-26 17:44] LABS: Albumin, Blood 3.4 g/dL (3.4-5.0); Albumin/Globulin Ratio 0.9 (0.8-1.8); Bilirubin, Total 0.3 mg/dL (0.1-1.0); Bun/Creatinine Ratio 8.1 (12.0-20.0); Calcium, Blood 8.8 mg/dL (8.5-10.1); Creatinine, Blood 2.36 mg/dL (0.60-1.20); Globulin, Blood 3.8 g/dL (2.2-4.0); Potassium, Blood 3.4 mmol/L (3.5-5.5); Total Protein, Blood 7.2 g/dL (6.4-8.2)
[2022-08-26 18:06] LABS: Source, Urine Clean Catch
[2022-08-26 18:15] LABS: Appearance, Urine Clear (Clear); Bilirubin, Urine Neg (Neg); Blood, Urine Neg (Neg); Color, Urine Yellow (P-Yellow); Glucose Qualitative, Urine Neg (Neg); Ketones, Urine Neg (Neg); Leukocyte Esterase, Urine Neg (Neg); Nitrite, Urine Neg (Neg); Protein, Urine 2+ (Neg); Urobilinogen, Urine NORM (Normal); pH, Urine 6.5 (5.0-8.0)
[2022-08-26 18:26] LABS: Bacteria Rare /hpf; Red Blood Cells, Urine 0-2 /hpf (0-2); Squamous Epithelial Cells Rare /hpf (Few); White Blood Cells, Urine 0-2 /hpf (0-5)
== END 2022-08-26 21:04 | disposition home or self-care (01) ==
LOC: ER 16:20
PROVIDERS: Physician Assistant; Student in an Organized Health Care Education/Training Program
DX: R10.9 Unspecified abdominal pain (principal); Z79.899 Other long term (current) drug therapy; Z88.8 Allergy status to other drugs, medicaments and biological substances; Z87.891 Personal history of nicotine dependence
CPT/HCPCS: 36415; 71046; 74177; 80053; 81001; 84484; 85025; 93005; 93010; 96374-59; 99285-25; J3010; J7030; Q9967

== ENCOUNTER 2022-10-14 04:02 | Emergency (ER) | payer OTHER ==
[~2022-10-14] VITALS: Ht 177.8 cm; Wt 79.4 kg
[2022-10-14 04:22] LABS: BASOPHILS PERCENT AUTO 1 % (0-2); Hematocrit 29.9 % (37.0-53.0); Hemoglobin 8.3 g/dL (13.5-17.5); IMMATURE GRAN PERCENT AUTO 0 % (0-1); MONOCYTES ABSOLUTE AUTO 1.12 K/mm3 (0.16-1.47); MONOCYTES PERCENT AUTO 8 % (4-13); Mean Corpuscular HGB 20.5 pg (26.0-34.0); Mean Corpuscular HGB Conc 27.8 g/dL (31.5-36.5); Mean Corpuscular Volume 74 fL (80-100); Mean Platelet Volume 11.4 fL (9.1-12.4); Platelet Count 260 K/mm3 (150-400); RDW Coefficient Variation 15.9 % (11.7-14.2); Red Blood Cell Count 4.05 M/mm3 (4.30-5.90); White Blood Cell Count 13.51 K/mm3 (4.00-11.30)
[2022-10-14 04:44] LABS: Albumin, Blood 3.4 g/dL (3.4-5.0); Albumin/Globulin Ratio 0.8 (0.8-1.8); Bilirubin, Total 0.4 mg/dL (0.1-1.0); Bun/Creatinine Ratio 11.4 (12.0-20.0); Calcium, Blood 8.4 mg/dL (8.5-10.1); Creatinine, Blood 2.37 mg/dL (0.60-1.20); Globulin, Blood 4.4 g/dL (2.2-4.0); Potassium, Blood 3.5 mmol/L (3.5-5.5); Total Protein, Blood 7.8 g/dL (6.4-8.2)
[2022-10-14 05:00] LABS: EOSINOPHILS ABSOLUTE AUTO 0.04 K/mm3 (0.00-0.68); EOSINOPHILS PERCENT AUTO 0 % (0-6); IMMATURE GRAN ABSOLUTE AUTO 0.05 K/mm3 (0.00-0.10); LYMPHOCYTES ABSOLUTE AUTO 1.24 K/mm3 (0.84-5.20); LYMPHOCYTES PERCENT AUTO 9 % (21-46); NEUTROPHILS ABSOLUTE AUTO 11.01 K/mm3 (1.96-9.15); NEUTROPHILS PERCENT AUTO 81 % (41-73)
[2022-10-14 05:39] LABS: Source, Urine Clean Catch
[2022-10-14 06:06] LABS: Bilirubin, Urine Neg (Neg); Blood, Urine 4+ (Neg); Glucose Qualitative, Urine Neg (Neg); Ketones, Urine Neg (Neg); Leukocyte Esterase, Urine Neg (Neg); Nitrite, Urine Neg (Neg); Protein, Urine 3+ (Neg); Specific Gravity, Urine 1.005 (1.003-1.022); Urobilinogen, Urine NORM (Normal)
[2022-10-14 06:17] LABS: Appearance, Urine Hazy (Clear); Bacteria Not Seen /hpf; Color, Urine Yellow (P-Yellow); Squamous Epithelial Cells Rare /hpf (Few); White Blood Cells, Urine Not Seen /hpf (0-5)
== END 2022-10-14 07:05 | disposition home or self-care (01) ==
LOC: ER 04:02
PROVIDERS: Student in an Organized Health Care Education/Training Program
DX: N28.1 Cyst of kidney, acquired (principal); R58 Hemorrhage, not elsewhere classified; Z88.8 Allergy status to other drugs, medicaments and biological substances; Z79.899 Other long term (current) drug therapy; Z87.891 Personal history of nicotine dependence
CPT/HCPCS: 36415; 74177; 80053; 81001; 85025; 96361; 96374-59; 99285-25; A9270; J1170; J7030; Q9967

== ENCOUNTER 2023-07-16 22:53 | Inpatient (IN) | payer OTHER ==
[~2023-07-16] VITALS: Ht 177.8 cm; Wt 103.1 kg
[~2023-07-16 22:53] MED LIST changes: +CEFD300 PO; +PROM25 PO
[2023-07-17] VITALS (7 sets, daily range): BP systolic 176–215; BP diastolic 101–125
[2023-07-17 01:24] LABS: Source, Urine Clean Catch
[2023-07-17 01:25] LABS: BASOPHILS ABSOLUTE AUTO 0.08 K/mm3 (0.00-0.23); BASOPHILS PERCENT AUTO 1 % (0-2); EOSINOPHILS ABSOLUTE AUTO 0.42 K/mm3 (0.00-0.68); EOSINOPHILS PERCENT AUTO 7 % (0-6); Hematocrit 25.1 % (37.0-53.0); IMMATURE GRAN ABSOLUTE AUTO 0.02 K/mm3 (0.00-0.10); IMMATURE GRAN PERCENT AUTO 0 % (0-1); LYMPHOCYTES ABSOLUTE AUTO 1.17 K/mm3 (0.84-5.20); LYMPHOCYTES PERCENT AUTO 19 % (21-46); MONOCYTES ABSOLUTE AUTO 0.45 K/mm3 (0.16-1.47); MONOCYTES PERCENT AUTO 8 % (4-13); Mean Corpuscular HGB Conc 27.9 g/dL (31.5-36.5); Mean Corpuscular Volume 75 fL (80-100); Mean Platelet Volume 10.7 fL (9.1-12.4); NEUTROPHILS PERCENT AUTO 65 % (41-73); Platelet Count 219 K/mm3 (150-400); RDW Coefficient Variation 17.2 % (11.7-14.2); RDW Standard Deviation 46.9 fL (35.1-46.3); Red Blood Cell Count 3.33 M/mm3 (4.30-5.90); White Blood Cell Count 6.04 K/mm3 (4.00-11.30)
[2023-07-17 01:40] LABS: Bilirubin, Urine Neg (Neg); Blood, Urine 5+ (Neg); Glucose Qualitative, Urine Neg (Neg); Ketones, Urine Neg (Neg); Leukocyte Esterase, Urine 1+ (Neg); Nitrite, Urine Neg (Neg); Protein, Urine 2+ (Neg); Urobilinogen, Urine NORM (Normal)
[2023-07-17 01:44] LABS: Albumin, Blood 3.1 g/dL (3.4-5.0); Albumin/Globulin Ratio 0.9 (0.8-1.8); Bilirubin, Total 0.2 mg/dL (0.1-1.0); Bun/Creatinine Ratio 11.6 (12.0-20.0); Creatinine, Blood 3.2 mg/dL (0.60-1.20); D-Dimer, Quantitative 0.19 mg/L FEU (0.00-0.52); Globulin, Blood 3.6 g/dL (2.2-4.0); International Normalized Ratio 0.96; Phosphorus, Blood 3.7 mg/dL (2.5-4.9); Potassium, Blood 3.1 mmol/L (3.5-5.5); Prothrombin Time Results 10.1 Sec (9.7-11.5); Total Protein, Blood 6.7 g/dL (6.4-8.2)
[2023-07-17 01:58] LABS: Appearance, Urine Clear (Clear); Color, Urine Yellow (P-Yellow)
[2023-07-17 01:59] LABS: Bacteria Few /hpf; Red Blood Cells, Urine 25-50 /hpf (0-2); Squamous Epithelial Cells Few /hpf (Few); White Blood Cells, Urine 0-2 /hpf (0-5)
[2023-07-17] MEDS ORDERED: Prinivil10 MG PO (05:27)
[2023-07-17] MEDS ORDERED: LAMO100 PO (05:28)
[2023-07-17] MEDS ORDERED: LYRICA75 M1 PO (05:29)
[2023-07-17] MEDS ORDERED: ABILIFY MYCITE10 M2 PO (05:30)
[2023-07-17] MEDS ORDERED: AMLO5 PO (05:31)
[2023-07-17] MEDS ORDERED: FLUT.05NI (05:32)
[2023-07-17] MEDS ORDERED: NAPR220 PO (05:32)
--- NOTE | 2023-07-17 05:53 | NUR ---
Patient arrives from ed via wheel chair. Patient able to stand pivot on rt side. Pt is alert and oriented. Very pleasant and cooperative. Patient had sudden onset for left sided tingling and numbness, unable to bear wt on left left, knee gives out. Patient is unable to lift left arm more than half way, numbness left hand and foot. Patient has no facial droop or speech difficulty. Patient states he has some previous swallowing difficulty and when they had tried to do a endoscopy he had a seizure. H endorses small, well chewed bites, fluids before and after to eat. Patient skin is intact. He has iron deficency anemia, hgb is 7.0 this admission. BP is elevated, L arm 189/125 p92, R arm 197/115. Dr. Collado notified, hydralizine 10mg IVP given at 0550. Patient eating snack at this time. Has been oriented to room and had a vape tube which is locked in the med drawer. Pt is a some day smoker. Call light in reach. Will continue to monitor.
[2023-07-17 06:56] LABS: BASOPHILS ABSOLUTE AUTO 0.06 K/mm3 (0.00-0.23); BASOPHILS PERCENT AUTO 1 % (0-2); EOSINOPHILS ABSOLUTE AUTO 0.29 K/mm3 (0.00-0.68); EOSINOPHILS PERCENT AUTO 5 % (0-6); Hematocrit 28.5 % (37.0-53.0); Hemoglobin 7.9 g/dL (13.5-17.5); IMMATURE GRAN ABSOLUTE AUTO 0.01 K/mm3 (0.00-0.10); IMMATURE GRAN PERCENT AUTO 0 % (0-1); LYMPHOCYTES ABSOLUTE AUTO 1.14 K/mm3 (0.84-5.20); LYMPHOCYTES PERCENT AUTO 19 % (21-46); MONOCYTES ABSOLUTE AUTO 0.32 K/mm3 (0.16-1.47); MONOCYTES PERCENT AUTO 5 % (4-13); Mean Corpuscular HGB 20.7 pg (26.0-34.0); Mean Corpuscular HGB Conc 27.7 g/dL (31.5-36.5); Mean Corpuscular Volume 75 fL (80-100); Mean Platelet Volume 10.5 fL (9.1-12.4); NEUTROPHILS ABSOLUTE AUTO 4.07 K/mm3 (1.96-9.15); NEUTROPHILS PERCENT AUTO 69 % (41-73); Platelet Count 234 K/mm3 (150-400); RDW Coefficient Variation 17.2 % (11.7-14.2); RDW Standard Deviation 46.8 fL (35.1-46.3); Red Blood Cell Count 3.81 M/mm3 (4.30-5.90); White Blood Cell Count 5.89 K/mm3 (4.00-11.30)
[2023-07-17 07:14] LABS: Hematocrit 28.5 % (37.0-53.0); Hemoglobin 7.9 g/dL (13.5-17.5)
[2023-07-17 07:25] LABS: Albumin, Blood 3.4 g/dL (3.4-5.0); Albumin/Globulin Ratio 0.9 (0.8-1.8); Bilirubin, Total 0.2 mg/dL (0.1-1.0); Bun/Creatinine Ratio 10.7 (12.0-20.0); Calcium, Blood 10.1 mg/dL (8.5-10.1); Creatinine, Blood 3.18 mg/dL (0.60-1.20); Globulin, Blood 3.8 g/dL (2.2-4.0); Magnesium, Blood 1.9 mg/dL (1.6-2.4); Potassium, Blood 3.1 mmol/L (3.5-5.5); Total Protein, Blood 7.2 g/dL (6.4-8.2)
[2023-07-17 15:11] LABS: Bun/Creatinine Ratio 10.5 (12.0-20.0); Calcium, Blood 9.6 mg/dL (8.5-10.1); Creatinine, Blood 3.14 mg/dL (0.60-1.20); Potassium, Blood 3.3 mmol/L (3.5-5.5)
--- NOTE | 2023-07-17 18:45 | NUR ---
ALERT AND OREINTED, MAKES NEEDS KNOWN, TO ACUTE CHANGES, MRI NEGATIVE, IMPROVED LEFT ARM MOVEMENT, PT ORDERED FOR TOMORROW, MEDICATED FOR PAIN AND HTN, ECHO AND RENAL US DONE TODAY NO RESULTS YET, PATIENT DID NOT TOLERATE THE PO OR IV POTASSIUM, PATIENT TO TRY LIQUID FORM TOMORROW MORNING. SCDS ON, KPAD ON, CALL LIGHT WITH IN REACH, USES BSU INDEPEDANTLY WILL RELAY TO PM RN
--- NOTE | 2023-07-18 00:20 | NUR ---
PATIENT REPORTS HE IS ABLE TO LIFT HIS LEFT LEG OFF THE MATTRESS-DURING SHIFT ASSESSMENT PATIENT WAS UNABLE TO LIFT LEG OFF OF MATTRESS. PATIENT REPORTS SCIATICA PAIN ON RIGHT SIDE WITH LIFTING OF LEFT LEG-PATIENT MEDICATED PER EMAR FOR PAIN AND HEAT APPLIED.
[2023-07-18 02:55] VITALS: BP 153/118
--- NOTE | 2023-07-18 05:02 | NUR ---
SHIFT SUMMARY. PATIENT A/OX3-4. PATIENT CALLS APPROPRIATELY AND IS ABLE TO MAKE HIS NEEDS KNOWN. PATIENT USING THE URINAL AT BED INDEPENDENTLY. PATIENT REPORTS THAT HE HAS BEEN VERY TIRED AND SLEPT FOR THE LAST 18-20 HOURS. PATIENT C/O PAIN-MEDICATED PER EMAR. BED IS LOCKED IN THE LOWEST POSITION WITH CALL LIGHT IN REACH.
[2023-07-18 07:17] LABS: Hematocrit 28.8 % (37.0-53.0); Hemoglobin 7.8 g/dL (13.5-17.5)
[2023-07-18 07:28] LABS: Bun/Creatinine Ratio 10.5 (12.0-20.0); Calcium, Blood 9.6 mg/dL (8.5-10.1); Creatinine, Blood 2.95 mg/dL (0.60-1.20); Potassium, Blood 3.5 mmol/L (3.5-5.5)
[2023-07-18 07:30] VITALS: BP 179/104
--- NOTE | 2023-07-18 14:24 | NUR ---
PATIENT IN MRI NOW, LEFT LEG MOVEMENT IMPROVING, CALL LIGHT WITH IN REACH
[2023-07-18 15:39] VITALS: BP 177/105
--- NOTE | 2023-07-18 17:04 | NUR ---
NO ACUTE CHANGES, MRI NEGATVIE, OXYCODONE DISCONTINUED, VSS, MAKES NEEDS KNOWN, LEFT SIDE MOVEMENT IMPROVING, WORKED WITH PT/OT, HTN, HOME BP MEDICATIONS GIVEN, CALL LIGHT WITH IN REACH, WILL RELAY TO PM RN
[2023-07-18 19:11] VITALS: BP 164/102
[2023-07-19 03:51] VITALS: BP 156/93
[2023-07-19 05:05] LABS: BASOPHILS ABSOLUTE AUTO 0.06 K/mm3 (0.00-0.23); BASOPHILS PERCENT AUTO 1 % (0-2); EOSINOPHILS ABSOLUTE AUTO 0.79 K/mm3 (0.00-0.68); EOSINOPHILS PERCENT AUTO 10 % (0-6); Hematocrit 28.1 % (37.0-53.0); Hemoglobin 7.5 g/dL (13.5-17.5); IMMATURE GRAN ABSOLUTE AUTO 0.02 K/mm3 (0.00-0.10); IMMATURE GRAN PERCENT AUTO 0 % (0-1); LYMPHOCYTES ABSOLUTE AUTO 1.27 K/mm3 (0.84-5.20); LYMPHOCYTES PERCENT AUTO 16 % (21-46); MONOCYTES ABSOLUTE AUTO 0.48 K/mm3 (0.16-1.47); MONOCYTES PERCENT AUTO 6 % (4-13); Mean Corpuscular HGB 20.5 pg (26.0-34.0); Mean Corpuscular HGB Conc 26.7 g/dL (31.5-36.5); Mean Corpuscular Volume 77 fL (80-100); Mean Platelet Volume 11.2 fL (9.1-12.4); NEUTROPHILS ABSOLUTE AUTO 5.27 K/mm3 (1.96-9.15); NEUTROPHILS PERCENT AUTO 67 % (41-73); Platelet Count 248 K/mm3 (150-400); RDW Coefficient Variation 17.2 % (11.7-14.2); RDW Standard Deviation 48.2 fL (35.1-46.3); Red Blood Cell Count 3.66 M/mm3 (4.30-5.90); White Blood Cell Count 7.89 K/mm3 (4.00-11.30)
[2023-07-19 05:55] LABS: Bun/Creatinine Ratio 10.6 (12.0-20.0); Calcium, Blood 8.9 mg/dL (8.5-10.1); Creatinine, Blood 2.82 mg/dL (0.60-1.20); Potassium, Blood 3.9 mmol/L (3.5-5.5)
--- NOTE | 2023-07-19 06:44 | NUR ---
SHIFT SUMMARY. NO ACUTE CHANGES. PATIENT HAS SIGNIFICANT IMPROVEMENT WITH LEFT SIDED MOVEMENT AND STRENGTH FROM PREVIOUS NIGHT. PATIENT IS ABLE TO MAKE NEEDS KNOWN. PATIENT WANTS TO WALK WHEN HE IS NOT TIRED. PATIENT UP TO SHOWER TONIGHT. BED IS LOCKED IN THE LOWEST POSITION WITH CALL LIGHT IN REACH.
[2023-07-19 07:37] VITALS: BP 182/107
[2023-07-19 10:35] VITALS: BP 157/95
--- NOTE | 2023-07-19 12:22 | NUR ---
PATIENT DISCHARGED HOME, PLEASANT TO CARE, STATED UNDERSTANDING OF DISCHARGE INSTRUCTIONS, NO FURTHER QUESTIONS
[2023-07-19 20:56] LABS: ANTI-NUCLEAR AB ANA,IGG ELISA None Detected (None Detected)
== END 2023-07-19 12:18 | disposition home or self-care (01) | DRG 69 ==
LOC: ER 22:53 → MEDS 22:54
PROVIDERS: Emergency Medicine; Family Medicine; Student in an Organized Health Care Education/Training Program; ADMIT Internal Medicine
DX: G45.9 Transient cerebral ischemic attack, unspecified (principal); Q61.3 Polycystic kidney, unspecified; N18.4 Chronic kidney disease, stage 4 (severe); N17.9 Acute kidney failure, unspecified; I16.0 Hypertensive urgency; R31.9 Hematuria, unspecified; F31.9 Bipolar disorder, unspecified; M79.7 Fibromyalgia; I12.9 Hypertensive chronic kidney disease with stage 1 through stage 4 chronic kidney disease, or unspecified chronic kidney disease; E87.6 Hypokalemia; G40.909 Epilepsy, unspecified, not intractable, without status epilepticus; D50.0 Iron deficiency anemia secondary to blood loss (chronic); Z87.891 Personal history of nicotine dependence; Z79.899 Other long term (current) drug therapy; Z88.8 Allergy status to other drugs, medicaments and biological substances; Z79.891 Long term (current) use of opiate analgesic; Z79.2 Long term (current) use of antibiotics
CPT/HCPCS: 36415; 70450; 70496; 70498; 70551; 71046; 72141; 72146; 72148; 76770; 80048; 80053; 81001; 82607; 82746; 83605; 83735; 84100; 84484; 85014; 85018; 85025; 85379; 85610; 85730; 86038; 86592; 86850; 86900; 86901; 87086; 93005; 93010; 93306; 94762; 97162; 97530; 99285; A9270; G0378; J3480; Q9967

== ENCOUNTER 2023-07-27 05:19 | Emergency (ER) | payer OTHER ==
[~2023-07-27] VITALS: Ht 177.8 cm; Wt 107.5 kg
[~2023-07-27 05:19] MED LIST changes: +AMLO5 PO; +FLUT.05NI; +LAMO100 PO; +LYRICA75 M1 PO; +NAPR220 PO
[2023-07-27 05:57] LABS: BASOPHILS ABSOLUTE AUTO 0.12 K/mm3 (0.00-0.23); BASOPHILS PERCENT AUTO 2 % (0-2); EOSINOPHILS PERCENT AUTO 8 % (0-6); Hematocrit 27.1 % (37.0-53.0); Hemoglobin 7.5 g/dL (13.5-17.5); IMMATURE GRAN ABSOLUTE AUTO 0.01 K/mm3 (0.00-0.10); IMMATURE GRAN PERCENT AUTO 0 % (0-1); LYMPHOCYTES PERCENT AUTO 28 % (21-46); MONOCYTES ABSOLUTE AUTO 0.77 K/mm3 (0.16-1.47); MONOCYTES PERCENT AUTO 10 % (4-13); Mean Corpuscular HGB Conc 27.7 g/dL (31.5-36.5); Mean Corpuscular Volume 76 fL (80-100); Mean Platelet Volume 10.8 fL (9.1-12.4); NEUTROPHILS ABSOLUTE AUTO 4.04 K/mm3 (1.96-9.15); NEUTROPHILS PERCENT AUTO 53 % (41-73); Platelet Count 235 K/mm3 (150-400); RDW Coefficient Variation 17.1 % (11.7-14.2); RDW Standard Deviation 45.6 fL (35.1-46.3); Red Blood Cell Count 3.57 M/mm3 (4.30-5.90); White Blood Cell Count 7.64 K/mm3 (4.00-11.30)
[2023-07-27 06:00] LABS: Alanine Aminotransfer (ALT/SGP 29 U/L (12-78); Albumin, Blood 3.4 g/dL (3.4-5.0); Albumin/Globulin Ratio 0.9 (0.8-1.8); Alk Phos 111 U/L (50-136); Anion Gap 5 mmol/L (6-16); Aspartate Aminotrans (AST/SGOT 20 U/L (12-37); Bilirubin, Total 0.2 mg/dL (0.1-1.0); Blood Urea Nitrogen 24 mg/dL (8-24); CO2, Blood 28 mmol/L (21-32); Calcium, Blood 9.8 mg/dL (8.5-10.1); Chloride, Blood 110 mmol/L (98-108); Creatinine, Blood 3.45 mg/dL (0.60-1.20); Globulin, Blood 3.9 g/dL (2.2-4.0); Glomerular Filtration Rate 23 (60-); Glucose, Blood 91 mg/dL (70-99); Potassium, Blood 3.4 mmol/L (3.5-5.5); Sodium, Blood 143 mmol/L (136-145); Total Protein, Blood 7.3 g/dL (6.4-8.2)
[2023-07-27 06:04] LABS: International Normalized Ratio 0.95
[2023-07-27 08:27] VITALS: BP 190/111
[2023-07-27] MEDS ORDERED: METO10 PO (08:42)
== END 2023-07-27 08:52 | disposition home or self-care (01) ==
LOC: ER 05:19
PROVIDERS: Emergency Medicine
DX: G43.409 Hemiplegic migraine, not intractable, without status migrainosus (principal); E87.6 Hypokalemia; D64.9 Anemia, unspecified; I12.9 Hypertensive chronic kidney disease with stage 1 through stage 4 chronic kidney disease, or unspecified chronic kidney disease; N18.9 Chronic kidney disease, unspecified; N17.9 Acute kidney failure, unspecified; F31.9 Bipolar disorder, unspecified; M79.7 Fibromyalgia; Z79.899 Other long term (current) drug therapy; Z87.891 Personal history of nicotine dependence; Z88.8 Allergy status to other drugs, medicaments and biological substances
CPT/HCPCS: 70450; 71045; 80053; 85025; 85610; 85730; 93005; 93010; 96361; 96374; 96375; 99285-25; A9270; J1790; J1885; J7030

== ENCOUNTER → 2024-01-10 | Outpatient (CLI) | payer SELFPAY ==
[~2024-01-10] MED LIST changes: +CATAPRES-TTS 31 EAC2 TOP; +METO10 PO; +POTA8 PO; +Tamiflu75 MG PO
[2024-01-10 18:03] LABS: BASOPHILS ABSOLUTE AUTO 0.06 K/mm3 (0.00-0.23); BASOPHILS PERCENT AUTO 1 % (0-2); EOSINOPHILS ABSOLUTE AUTO 0.01 K/mm3 (0.00-0.68); EOSINOPHILS PERCENT AUTO 0 % (0-6); Hematocrit 27.7 % (37.0-53.0); Hemoglobin 7.5 g/dL (13.5-17.5); IMMATURE GRAN ABSOLUTE AUTO 0.01 K/mm3 (0.00-0.10); IMMATURE GRAN PERCENT AUTO 0 % (0-1); LYMPHOCYTES ABSOLUTE AUTO 0.53 K/mm3 (0.84-5.20); LYMPHOCYTES PERCENT AUTO 12 % (21-46); MONOCYTES ABSOLUTE AUTO 0.67 K/mm3 (0.16-1.47); MONOCYTES PERCENT AUTO 15 % (4-13); Mean Corpuscular HGB 20.7 pg (26.0-34.0); Mean Corpuscular HGB Conc 27.1 g/dL (31.5-36.5); Mean Corpuscular Volume 77 fL (80-100); Mean Platelet Volume 11.8 fL (9.1-12.4); NEUTROPHILS ABSOLUTE AUTO 3.28 K/mm3 (1.96-9.15); NEUTROPHILS PERCENT AUTO 72 % (41-73); Platelet Count 224 K/mm3 (150-400); RDW Coefficient Variation 16.4 % (11.7-14.2); RDW Standard Deviation 45.8 fL (35.1-46.3); Red Blood Cell Count 3.62 M/mm3 (4.30-5.90); White Blood Cell Count 4.56 K/mm3 (4.00-11.30)
[2024-01-10 18:15] LABS: Albumin, Blood 3.6 g/dL (3.4-5.0); Albumin/Globulin Ratio 0.9 (0.8-1.8); Bilirubin, Total 0.3 mg/dL (0.1-1.0); Bun/Creatinine Ratio 6.5 (12.0-20.0); Calcium, Blood 8.8 mg/dL (8.5-10.1); Creatinine, Blood 3.54 mg/dL (0.60-1.20); Globulin, Blood 3.9 g/dL (2.2-4.0); Potassium, Blood 3.2 mmol/L (3.5-5.5); Total Protein, Blood 7.5 g/dL (6.4-8.2)
== END ==
LOC: LAB SHORT 16:28 → LAB 16:28
PROVIDERS: Physician Assistant
DX: A08.4 Viral intestinal infection, unspecified (principal)
CPT/HCPCS: 80053; 85025

== ENCOUNTER 2024-01-11 04:21 | Emergency (ER) | payer SELFPAY ==
[~2024-01-11] VITALS: Ht 175.3 cm; Wt 99.8 kg
[~2024-01-11 04:21] MED LIST changes: -CATAPRES-TTS 31 EAC2 TOP; -POTA8 PO; -Tamiflu75 MG PO
[2024-01-11] MEDS ORDERED: NS 1,000 ML IV SCH (04:30)
[2024-01-11] MEDS ORDERED: Ketorolac Tromethamine 30mg Vial IV ONE (04:30)
[2024-01-11] MEDS ORDERED: CATAPRES-TTS 31 EAC2 TOP (04:37)
[2024-01-11] MEDS ORDERED: POTA8 PO (04:37)
[2024-01-11 04:41] LABS: BASOPHILS ABSOLUTE AUTO 0.05 K/mm3 (0.00-0.23); BASOPHILS PERCENT AUTO 2 % (0-2); EOSINOPHILS ABSOLUTE AUTO 0.02 K/mm3 (0.00-0.68); EOSINOPHILS PERCENT AUTO 1 % (0-6); Hematocrit 24.8 % (37.0-53.0); Hemoglobin 6.7 g/dL (13.5-17.5); IMMATURE GRAN PERCENT AUTO 0 % (0-1); LYMPHOCYTES ABSOLUTE AUTO 0.93 K/mm3 (0.84-5.20); LYMPHOCYTES PERCENT AUTO 30 % (21-46); MONOCYTES ABSOLUTE AUTO 0.62 K/mm3 (0.16-1.47); MONOCYTES PERCENT AUTO 20 % (4-13); Mean Corpuscular HGB 20.7 pg (26.0-34.0); Mean Corpuscular Volume 77 fL (80-100); Mean Platelet Volume 10.5 fL (9.1-12.4); NEUTROPHILS ABSOLUTE AUTO 1.53 K/mm3 (1.96-9.15); NEUTROPHILS PERCENT AUTO 49 % (41-73); Platelet Count 191 K/mm3 (150-400); RDW Coefficient Variation 16.9 % (11.7-14.2); RDW Standard Deviation 47.8 fL (35.1-46.3); Red Blood Cell Count 3.23 M/mm3 (4.30-5.90); White Blood Cell Count 3.15 K/mm3 (4.00-11.30)
[2024-01-11 04:52] LABS: Source, Urine Voided
[2024-01-11 04:59] LABS: Alanine Aminotransfer (ALT/SGP 20 U/L (12-78); Albumin, Blood 3.3 g/dL (3.4-5.0); Albumin/Globulin Ratio 0.9 (0.8-1.8); Alk Phos 77 U/L (50-136); Anion Gap 10 mmol/L (3-11); Aspartate Aminotrans (AST/SGOT 27 U/L (12-37); Bilirubin, Total 0.3 mg/dL (0.1-1.0); Blood Urea Nitrogen 30 mg/dL (8-24); Bun/Creatinine Ratio 8.4 (12.0-20.0); CO2, Blood 25 mmol/L (21-32); Calcium, Blood 7.9 mg/dL (8.5-10.1); Chloride, Blood 109 mmol/L (98-108); Creatinine, Blood 3.59 mg/dL (0.60-1.20); Ethanol (Alcohol), Blood, Med <3 mg/dL; Globulin, Blood 3.6 g/dL (2.2-4.0); Glomerular Filtration Rate 22 (60-); Glucose, Blood 85 mg/dL (70-99); Magnesium, Blood 1.9 mg/dL (1.6-2.4); Potassium, Blood 3.3 mmol/L (3.5-5.5); Sodium, Blood 141 mmol/L (136-145); Total Protein, Blood 6.9 g/dL (6.4-8.2)
[2024-01-11 05:02] LABS: Bilirubin, Urine Neg (Neg); Blood, Urine 3+ (Neg); Glucose Qualitative, Urine Neg (Neg); Ketones, Urine 1+ (Neg); Leukocyte Esterase, Urine 1+ (Neg); Nitrite, Urine Neg (Neg); Protein, Urine 2+ (Neg); Specific Gravity, Urine 1.015 (1.003-1.022); Urobilinogen, Urine NORM (Normal)
[2024-01-11 05:08] LABS: Appearance, Urine Clear (Clear); Color, Urine Pale Yellow (P-Yellow)
[2024-01-11 05:09] LABS: Influenza B, PCR NEGATIVE (NEGATIVE); Resp Syncytial Virus, PCR NEGATIVE (NEGATIVE); SARS-Cov-2 (COVID-19) PCR, MMC NEGATIVE (NEGATIVE)
[2024-01-11 05:09] LABS: Bacteria Not Seen /hpf; Red Blood Cells, Urine 0-2 /hpf (0-2); Squamous Epithelial Cells Not Seen /hpf (Few); White Blood Cells, Urine 0-2 /hpf (0-5)
[2024-01-11 05:23] LABS: U Amphetamine Screen Not Detected; U Barbituate Screen Not Detected; U Benzodiazapine Screen Not Detected; U Buprenorphine Screen Not Detected; U Cannabinoids Screen Not Detected; U Cocaine Screen Not Detected; U Methadone Screen Not Detected; U Methamphetamine Screen Not Detected; U Opiates Screen Not Detected; U Oxycodone Screen Not Detected; U Phencyclidine Screen Not Detected
[2024-01-11 05:56] VITALS: BP 198/99
[2024-01-11 06:01] LABS: Influenza A, PCR POSITIVE (NEGATIVE)
[2024-01-11] MEDS ORDERED: Tamiflu75 MG PO (06:03)
[2024-01-11] MEDS ORDERED: Acetaminophen 325 MG TABLET PO ONE (06:05)
== END 2024-01-11 06:11 | disposition home or self-care (01) ==
LOC: ER 04:21
PROVIDERS: Emergency Medicine
DX: J10.1 Influenza due to other identified influenza virus with other respiratory manifestations (principal); D64.9 Anemia, unspecified; I12.9 Hypertensive chronic kidney disease with stage 1 through stage 4 chronic kidney disease, or unspecified chronic kidney disease; N18.9 Chronic kidney disease, unspecified; G43.909 Migraine, unspecified, not intractable, without status migrainosus; Z79.899 Other long term (current) drug therapy; Z79.51 Long term (current) use of inhaled steroids; Z88.8 Allergy status to other drugs, medicaments and biological substances
CPT/HCPCS: 0241U; 80053; 81001; 82550; 83605; 83735; 85025; 96361; 96374; 99285-25; A9270; J1885; J7030

== ENCOUNTER 2024-04-08 21:20 | Emergency (ER) | payer SELFPAY ==
[~2024-04-08] VITALS: Ht 177.8 cm; Wt 96.6 kg
[~2024-04-08 21:20] MED LIST changes: +CATAPRES-TTS 31 EAC2 TOP; +POTA8 PO; +Tamiflu75 MG PO
[2024-04-08] MEDS ORDERED: Ketorolac Tromethamine 15mg Vial IV ONE (23:15)
[2024-04-08] MEDS ORDERED: Acetaminophen 500 MG Tab PO ONE (23:15)
[2024-04-08 23:32] LABS: BASOPHILS ABSOLUTE AUTO 0.07 K/mm3 (0.00-0.23); BASOPHILS PERCENT AUTO 1 % (0-2); EOSINOPHILS ABSOLUTE AUTO 0.32 K/mm3 (0.00-0.68); EOSINOPHILS PERCENT AUTO 4 % (0-6); Hematocrit 26.1 % (37.0-53.0); Hemoglobin 7.2 g/dL (13.5-17.5); IMMATURE GRAN ABSOLUTE AUTO 0.02 K/mm3 (0.00-0.10); IMMATURE GRAN PERCENT AUTO 0 % (0-1); LYMPHOCYTES ABSOLUTE AUTO 1.71 K/mm3 (0.84-5.20); LYMPHOCYTES PERCENT AUTO 23 % (21-46); MONOCYTES ABSOLUTE AUTO 0.63 K/mm3 (0.16-1.47); MONOCYTES PERCENT AUTO 8 % (4-13); Mean Corpuscular HGB 20.7 pg (26.0-34.0); Mean Corpuscular HGB Conc 27.6 g/dL (31.5-36.5); Mean Corpuscular Volume 75 fL (80-100); Mean Platelet Volume 10.3 fL (9.1-12.4); NEUTROPHILS ABSOLUTE AUTO 4.84 K/mm3 (1.96-9.15); NEUTROPHILS PERCENT AUTO 64 % (41-73); Platelet Count 269 K/mm3 (150-400); RDW Coefficient Variation 16.1 % (11.7-14.2); RDW Standard Deviation 43.8 fL (35.1-46.3); Red Blood Cell Count 3.48 M/mm3 (4.30-5.90); White Blood Cell Count 7.59 K/mm3 (4.00-11.30)
[2024-04-08 23:55] LABS: Bun/Creatinine Ratio 7.9 (12.0-20.0); Calcium, Blood 8.6 mg/dL (8.5-10.1); Creatinine, Blood 3.53 mg/dL (0.60-1.20)
[2024-04-09] MEDS ORDERED: Potassium Chloride 20 MEQ TabCR PO ONE (00:30)
[2024-04-09] MEDS ORDERED: Cephalexin Monohydrate 500 MG Cap PO ONE (00:40)
[2024-04-09] MEDS ORDERED: ACET500 PO (00:41)
[2024-04-09] MEDS ORDERED: POTA10T PO (00:41)
[2024-04-09] MEDS ORDERED: CEPH500 PO (00:41)
[2024-04-09] MEDS ORDERED: Potassium Chloride 20 MEQ/15 ML UDC PO ONE (00:45)
[2024-04-09 01:05] VITALS: BP 183/108
== END 2024-04-09 01:09 | disposition home or self-care (01) ==
LOC: ER 21:20
PROVIDERS: Emergency Medicine
DX: L03.115 Cellulitis of right lower limb (principal); E87.6 Hypokalemia; Z88.8 Allergy status to other drugs, medicaments and biological substances; Z79.899 Other long term (current) drug therapy; I10 Essential (primary) hypertension; G43.909 Migraine, unspecified, not intractable, without status migrainosus
CPT/HCPCS: 80048; 85025; 85379; 93971; 96374; 99284-25; A9270; J1885

== ENCOUNTER 2024-04-12 05:22 | Emergency (ER) | payer SELFPAY ==
[~2024-04-12] VITALS: Ht 175.3 cm; Wt 97.5 kg
[~2024-04-12 05:22] MED LIST changes: +ACET500 PO; +CEPH500 PO; +POTA10T PO
[2024-04-12] MEDS ORDERED: Ketorolac Tromethamine 30mg Vial IV ONE (06:35)
[2024-04-12] MEDS ORDERED: Metoclopramide HCl 5MG / ML 2ML Vial IV ONE (06:35)
[2024-04-12] MEDS ORDERED: DiphenhydrAMINE HCl 50 MG/ML 1ML Vial IV ONE (06:35)
[2024-04-12] MEDS ORDERED: NS 1,000 ML IV SCH (06:35)
[2024-04-12] MEDS ORDERED: Mag Sulfate 1 GM/D5% 100ML 100 ML IV ONE (08:20)
[2024-04-12 09:39] VITALS: BP 174/98
== END 2024-04-12 09:38 | disposition home or self-care (01) ==
LOC: ER 05:22
DX: G43.909 Migraine, unspecified, not intractable, without status migrainosus (principal); I10 Essential (primary) hypertension; K21.9 Gastro-esophageal reflux disease without esophagitis; Z86.73 Personal history of transient ischemic attack (TIA), and cerebral infarction without residual deficits; Z79.899 Other long term (current) drug therapy; Z88.1 Allergy status to other antibiotic agents
CPT/HCPCS: 70450; 96365; 96375; 99284-25; J1200; J1885; J2765; J3475; J7030

== ENCOUNTER 2024-09-14 23:47 | Inpatient (IN) | payer OTHER ==
[~2024-09-14] VITALS: Ht 177.8 cm; Wt 101.6 kg
[2024-09-15 00:13] LABS: BASOPHILS PERCENT AUTO 1 % (0-2); EOSINOPHILS ABSOLUTE AUTO 0.59 K/mm3 (0.00-0.68); EOSINOPHILS PERCENT AUTO 6 % (0-6); Hematocrit 25.6 % (37.0-53.0); Hemoglobin 7.7 g/dL (13.5-17.5); IMMATURE GRAN ABSOLUTE AUTO 0.03 K/mm3 (0.00-0.10); IMMATURE GRAN PERCENT AUTO 0 % (0-1); LYMPHOCYTES ABSOLUTE AUTO 1.73 K/mm3 (0.84-5.20); LYMPHOCYTES PERCENT AUTO 17 % (21-46); MONOCYTES ABSOLUTE AUTO 0.74 K/mm3 (0.16-1.47); MONOCYTES PERCENT AUTO 7 % (4-13); Mean Corpuscular HGB 22.5 pg (26.0-34.0); Mean Corpuscular HGB Conc 30.1 g/dL (31.5-36.5); Mean Corpuscular Volume 75 fL (80-100); Mean Platelet Volume 10.6 fL (9.1-12.4); NEUTROPHILS ABSOLUTE AUTO 6.95 K/mm3 (1.96-9.15); NEUTROPHILS PERCENT AUTO 69 % (41-73); Platelet Count 208 K/mm3 (150-400); RDW Coefficient Variation 15.6 % (11.7-14.2); RDW Standard Deviation 41.6 fL (35.1-46.3); Red Blood Cell Count 3.42 M/mm3 (4.30-5.90); White Blood Cell Count 10.14 K/mm3 (4.00-11.30)
[2024-09-15] MEDS ORDERED: HYDROmorphone HCl/Pf 1MG SYR IV ONE (00:15)
[2024-09-15] MEDS ORDERED: Ondansetron HCl 2 MG / ML 2ML Vial IV ONE (00:40)
[2024-09-15 00:41] LABS: Albumin, Blood 3.5 g/dL (3.4-5.0); Albumin/Globulin Ratio 0.9 (0.8-1.8); Bilirubin, Total 0.2 mg/dL (0.1-1.0); Bun/Creatinine Ratio 9.6 (12.0-20.0); Calcium, Blood 14.6 mg/dL (8.5-10.1); Creatinine, Blood 6.28 mg/dL (0.60-1.20); Globulin, Blood 3.9 g/dL (2.2-4.0); Potassium, Blood 2.9 mmol/L (3.5-5.5); Total Protein, Blood 7.4 g/dL (6.4-8.2)
[2024-09-15 00:43] LABS: Source, Urine Clean Catch
[2024-09-15 00:51] LABS: Bilirubin, Urine Neg (Neg); Blood, Urine 3+ (Neg); Glucose Qualitative, Urine Neg (Neg); Ketones, Urine Neg (Neg); Leukocyte Esterase, Urine Neg (Neg); Nitrite, Urine Neg (Neg); Protein, Urine 3+ (Neg); Urobilinogen, Urine NORM (Normal); pH, Urine 6.5 (5.0-8.0)
[2024-09-15 00:57] LABS: Appearance, Urine Clear (Clear); Color, Urine Pale Yellow (P-Yellow)
[2024-09-15 00:58] LABS: Bacteria Few /hpf; Red Blood Cells, Urine 0-2 /hpf (0-2); Squamous Epithelial Cells Few /hpf (Few); White Blood Cells, Urine 0-2 /hpf (0-5)
[2024-09-15] MEDS ORDERED: HydrALAZINE HCl 20 MG / ML 1ML Vial IV ONE (01:05)
[2024-09-15] MEDS ORDERED: Ondansetron HCl 2 MG / ML 2ML Vial IV PRN (02:50)
[2024-09-15] MEDS ORDERED: NS 1,000 ML IV SCH ×2 (02:50→07:35)
[2024-09-15] MEDS ORDERED: Potassium Chloride 20 MEQ in NS 90 ML IV ONE (03:00)
[2024-09-15] MEDS ORDERED: Labetalol HCL 5 MG/ML 4ML Injection (Single Dose) IV ONE ×2 (03:10→06:05)
[2024-09-15 03:23] LABS: Phosphorus, Blood 5.5 mg/dL (2.5-4.9)
[2024-09-15] MEDS ORDERED: NS 1,000 ML IV ONE (03:24)
[2024-09-15] MEDS ORDERED: Labetalol HCL 5 MG/ML 4ML Injection (Single Dose) IV PRN (03:30)
[2024-09-15 05:57] VITALS: BP 216/118
[2024-09-15] MEDS ORDERED: LISI5 PO (06:04)
[2024-09-15 06:19] LABS: BASOPHILS ABSOLUTE AUTO 0.11 K/mm3 (0.00-0.23); BASOPHILS PERCENT AUTO 1 % (0-2); EOSINOPHILS ABSOLUTE AUTO 0.71 K/mm3 (0.00-0.68); EOSINOPHILS PERCENT AUTO 7 % (0-6); Hematocrit 24.9 % (37.0-53.0); Hemoglobin 7.1 g/dL (13.5-17.5); IMMATURE GRAN ABSOLUTE AUTO 0.03 K/mm3 (0.00-0.10); IMMATURE GRAN PERCENT AUTO 0 % (0-1); LYMPHOCYTES ABSOLUTE AUTO 1.86 K/mm3 (0.84-5.20); LYMPHOCYTES PERCENT AUTO 18 % (21-46); MONOCYTES ABSOLUTE AUTO 0.74 K/mm3 (0.16-1.47); MONOCYTES PERCENT AUTO 7 % (4-13); Mean Corpuscular HGB 21.9 pg (26.0-34.0); Mean Corpuscular HGB Conc 28.5 g/dL (31.5-36.5); Mean Corpuscular Volume 77 fL (80-100); Mean Platelet Volume 10.9 fL (9.1-12.4); NEUTROPHILS ABSOLUTE AUTO 7.06 K/mm3 (1.96-9.15); NEUTROPHILS PERCENT AUTO 67 % (41-73); Platelet Count 212 K/mm3 (150-400); RDW Coefficient Variation 15.7 % (11.7-14.2); RDW Standard Deviation 42.9 fL (35.1-46.3); Red Blood Cell Count 3.24 M/mm3 (4.30-5.90); White Blood Cell Count 10.51 K/mm3 (4.00-11.30)
--- NOTE | 2024-09-15 06:29 | NUR ---
pt arrived from ER to room 6, pt alert and oriented, B/P elevated, MD called, labatelol given per order. Admission complete, Dr. Botello in room,will continue to monitor
[2024-09-15 06:39] LABS: Magnesium, Blood 2.4 mg/dL (1.6-2.4)
[2024-09-15 07:06] VITALS: BP 201/126
[2024-09-15 07:06] LABS: Albumin, Blood 3.3 g/dL (3.4-5.0); Bilirubin, Total 0.2 mg/dL (0.1-1.0); Bun/Creatinine Ratio 9.2 (12.0-20.0); Creatinine, Blood 6.19 mg/dL (0.60-1.20); Globulin, Blood 3.4 g/dL (2.2-4.0); Potassium, Blood 2.9 mmol/L (3.5-5.5); Total Protein, Blood 6.7 g/dL (6.4-8.2)
[2024-09-15 07:10] LABS: Calcium, Blood 13.7 mg/dL (8.5-10.1)
[2024-09-15] MEDS ORDERED: HYDROmorphone HCl 2 MG Tab PO PRN (08:25)
[2024-09-15] MEDS ORDERED: CloNIDine 0.1 MG Tab PO SCH (09:00)
[2024-09-15] MEDS ORDERED: NIFEdipine 90 MG TabCR PO SCH (09:00)
[2024-09-15 12:02] VITALS: BP 170/101
[2024-09-15 15:39] VITALS: BP 163/96
[2024-09-15 15:48] LABS: Anion Gap 10 mmol/L (3-11); Blood Urea Nitrogen 55 mg/dL (8-24); Bun/Creatinine Ratio 8.7 (12.0-20.0); CO2, Blood 25 mmol/L (21-32); Calcium, Blood 12.3 mg/dL (8.5-10.1); Chloride, Blood 110 mmol/L (98-108); Creatinine, Blood 6.34 mg/dL (0.60-1.20); Glomerular Filtration Rate 11 (60-); Glucose, Blood 116 mg/dL (70-99); Phosphorus, Blood 5.3 mg/dL (2.5-4.9); Potassium, Blood 3.1 mmol/L (3.5-5.5); Sodium, Blood 142 mmol/L (136-145)
[2024-09-15] MEDS ORDERED: Calcium Carbonate 500 MG Tab Chew PO PRN (17:10)
[2024-09-15] MEDS ORDERED: Potassium Chloride 10 Meq Tablet SA PO ONE (17:45)
--- NOTE | 2024-09-15 18:32 | NUR ---
SHIFT SUMMARY PT A/OX4 AND COOPERATIVE OF CARE. PT ABLE TO EXPRESS NEEDS AND CALLS APPROPIATELY. PT ENDORSED FLANK PAIN ALL SHIFT WITH LITTLE TO NO RELIEF WITH PAIN MEDS ORDERED. PT BP'S WITH LITTLE IMPROVEMENT THIS SHIFT. PT REPORTED PRESSURE RELATED TO EPIGASTRC AREA. NO REPORT OF SOB/DYSPNEA. OTHER VSS THROUGHOUT SHIFT. PT INDEPENDENT IN BED AND ABLE TO AMBULATE IN ROOM, TOLERATES WELL. PT SEEN BY COAL PULVERIZING OPERATOR TODAY, SEE COAL PULVERIZING OPERATOR NOTES. PT SEEN BY MANAGER NUCLEAR FOR ASSISTANCE WITH INSURANCE FROM MEDS, SEE MANAGER NUCLEAR NOTES.
[2024-09-15 20:37] VITALS: BP 165/109
--- NOTE | 2024-09-15 21:32 | NUR ---
PT C/O ACID REFLUX, DR. YU NOTIFIED, states she will order medication
[2024-09-15] MEDS ORDERED: Omeprazole 20 MG CapCR PO ONE (22:00)
[2024-09-15 22:07] LABS: Creatinine, Blood 6.47 mg/dL (0.60-1.20); Potassium, Blood 3.2 mmol/L (3.5-5.5)
[2024-09-15] MEDS ORDERED: Potassium Chloride 20 MEQ TabCR PO ONE (23:25)
[2024-09-16] VITALS (15 sets, daily range): BP systolic 132–163; BP diastolic 74–114
[2024-09-16 04:26] LABS: BASOPHILS ABSOLUTE AUTO 0.05 K/mm3 (0.00-0.23); BASOPHILS PERCENT AUTO 1 % (0-2); EOSINOPHILS ABSOLUTE AUTO 0.67 K/mm3 (0.00-0.68); EOSINOPHILS PERCENT AUTO 8 % (0-6); Hematocrit 23.9 % (37.0-53.0); Hemoglobin 6.9 g/dL (13.5-17.5); IMMATURE GRAN ABSOLUTE AUTO 0.02 K/mm3 (0.00-0.10); IMMATURE GRAN PERCENT AUTO 0 % (0-1); LYMPHOCYTES ABSOLUTE AUTO 1.54 K/mm3 (0.84-5.20); LYMPHOCYTES PERCENT AUTO 19 % (21-46); MONOCYTES ABSOLUTE AUTO 0.54 K/mm3 (0.16-1.47); MONOCYTES PERCENT AUTO 7 % (4-13); Mean Corpuscular HGB 22.3 pg (26.0-34.0); Mean Corpuscular HGB Conc 28.9 g/dL (31.5-36.5); Mean Corpuscular Volume 77 fL (80-100); Mean Platelet Volume 11.2 fL (9.1-12.4); NEUTROPHILS ABSOLUTE AUTO 5.47 K/mm3 (1.96-9.15); NEUTROPHILS PERCENT AUTO 66 % (41-73); Platelet Count 202 K/mm3 (150-400); RDW Coefficient Variation 15.9 % (11.7-14.2); RDW Standard Deviation 43.3 fL (35.1-46.3); Red Blood Cell Count 3.09 M/mm3 (4.30-5.90); White Blood Cell Count 8.29 K/mm3 (4.00-11.30)
[2024-09-16 04:47] LABS: Anion Gap 12 mmol/L (3-11); Blood Urea Nitrogen 55 mg/dL (8-24); Bun/Creatinine Ratio 8.9 (12.0-20.0); CO2, Blood 23 mmol/L (21-32); Calcium, Blood 11.6 mg/dL (8.5-10.1); Chloride, Blood 113 mmol/L (98-108); Creatinine, Blood 6.15 mg/dL (0.60-1.20); Glomerular Filtration Rate 12 (60-); Glucose, Blood 102 mg/dL (70-99); Magnesium, Blood 2.2 mg/dL (1.6-2.4); Phosphorus, Blood 4.5 mg/dL (2.5-4.9); Potassium, Blood 3.2 mmol/L (3.5-5.5); Sodium, Blood 145 mmol/L (136-145)
[2024-09-16] MEDS ORDERED: Potassium Chloride 20 MEQ TabCR PO ONE (05:45)
--- NOTE | 2024-09-16 06:44 | NUR ---
SHIFT SUMMARY PT SLEPT MOST OF THE NIGHT.PRN PAIN MED GIVEN TWICE FOR ABDOMINAL PAIN.PRN ZOFRAN GIVEN ONCE FOR NAUSEA.POTASSIUM REPLACED ORDERED.PT HAD ADEQUATE URINE OUTPUT.PLACED ON 2L OF OXYGEN DUE TO OXYGEN SATURATION DROPPING DOWN TO 85% WHILE HE WAS SLEEPING.PT MAINTAINED OXYGEN SATURATION >94% ON 2L.PT DENIES PAIN,DENIES DISCOMFORT AT THIS TIME.CALL LIGHT AND PT'S ITEMS WITHIN REACH.WILL GIVE REPORT TO DAYSHIFT NURSE FOR CONTINUITY OF CARE.
[2024-09-16] MEDS ORDERED: NS 250 ML IV PRN (08:55)
--- NOTE | 2024-09-16 17:58 | NUR ---
SHIFT SUMMARY PT A/OX4 AND COOPERATIVE OF CARE. PT ABLE TO EXPRESS NEEDS AND CALLS APPROPIATE. PT INDEPENDENT IN BED AND SBA WHEN UP FOR LINE MANGEMENT, TOLERATES WELL. VSS THROGHOUT SHIFT WITH O2 SATS IN THE 90'S ON RA. PT PAIN REMAINED CONSTANT TODAY WITH LITTLE RELIEF. PT RECIEVED 1 UNIT PRBC PER ORDER, LABS TO BE DRAWN IN THE AM PER MD. PT HAD MULTIPLE VISITORS THIS SHIFT, VISITORS UPDATED WHEN REQUESTED BY PT. NO REPORT OF CHEST PAIN/PRESSURE THROUGHOUT SHIFT. NO REPORT OF SPB/DYSPNEA THROUGHOUT SHIFT.
[2024-09-16] MEDS ORDERED: HYDROmorphone HCl/Pf 1MG SYR IV ONE (21:35)
[2024-09-16] MEDS ORDERED: HYDROmorphone HCl/Pf 1MG SYR IV PRN (21:40)
--- NOTE | 2024-09-16 21:45 | NUR ---
UPDATE: PT C/O 05/05 PAIN TO LEFT UPPER ABD, DESCRIBING IT SHARP, FEELING LIKE "RAZOR BLADES." THIS RN PHONED NIGHT RESIDENT, DR. NICHOLSON. MD ASSESSED PT AT BEDSIDE. PAIN MANAGEMENT ORDERS ADJUSTED BY MD. PT APPEARS CONTENT IN BED ON PHONE.
[2024-09-17 03:28] VITALS: BP 126/85
[2024-09-17 05:00] LABS: Hematocrit 27.9 % (37.0-53.0)
[2024-09-17 05:49] LABS: Albumin, Blood 3.2 g/dL (3.4-5.0); Anion Gap 12 mmol/L (3-11); Blood Urea Nitrogen 55 mg/dL (8-24); Bun/Creatinine Ratio 9.9 (12.0-20.0); CO2, Blood 21 mmol/L (21-32); Calcium, Blood 10.7 mg/dL (8.5-10.1); Chloride, Blood 114 mmol/L (98-108); Creatinine, Blood 5.57 mg/dL (0.60-1.20); Glomerular Filtration Rate 13 (60-); Glucose, Blood 87 mg/dL (70-99); Magnesium, Blood 2.4 mg/dL (1.6-2.4); Phosphorus, Blood 4.7 mg/dL (2.5-4.9); Potassium, Blood 3.7 mmol/L (3.5-5.5); Sodium, Blood 143 mmol/L (136-145)
[2024-09-17] MEDS ORDERED: NS 1,000 ML IV SCH (08:25)
[2024-09-17 09:26] VITALS: BP 155/97
[2024-09-17 12:24] VITALS: BP 159/108
[2024-09-17 13:44] VITALS: BP 154/109
[2024-09-17 17:19] VITALS: BP 160/106
--- NOTE | 2024-09-17 18:29 | NUR ---
SHIFT SUMMARY PT ADMITTED FOR POLYCYSTIC KIDNEY DISEASE, ON THE FLOOR PRIOR TO START OF THIS SHIFT, A/OX4, VSS THOUGH HIS BP HAS BEEN ELEVATED T/O THE SHIFT TODAY, PAIN MANAGED PER EMAR. NO ACUTE EVENTS THIS SHIFT, CALL LIGHT IN REACH.
[2024-09-17 19:35] VITALS: BP 155/95
[2024-09-17] MEDS ORDERED: Amitriptyline HCl 10 MG Tab PO SCH (21:00)
[2024-09-18] VITALS (8 sets, daily range): BP systolic 139–160; BP diastolic 79–106
[2024-09-18 07:44] LABS: Hematocrit 28.1 % (37.0-53.0); Hemoglobin 8.3 g/dL (13.5-17.5)
[2024-09-18 08:10] LABS: Magnesium, Blood 2.4 mg/dL (1.6-2.4)
[2024-09-18 08:11] LABS: Albumin, Blood 3.2 g/dL (3.4-5.0); Anion Gap 12 mmol/L (3-11); Blood Urea Nitrogen 55 mg/dL (8-24); Bun/Creatinine Ratio 10.1 (12.0-20.0); CO2, Blood 20 mmol/L (21-32); Calcium, Blood 10.2 mg/dL (8.5-10.1); Chloride, Blood 118 mmol/L (98-108); Creatinine, Blood 5.42 mg/dL (0.60-1.20); Glomerular Filtration Rate 14 (60-); Glucose, Blood 89 mg/dL (70-99); Phosphorus, Blood 3.5 mg/dL (2.5-4.9); Potassium, Blood 3.7 mmol/L (3.5-5.5); Sodium, Blood 146 mmol/L (136-145)
[2024-09-18] MEDS ORDERED: Dextrose 5% 1,000 ML IV SCH (08:30)
[2024-09-18] MEDS ORDERED: OxyCODONE HCL 5 MG TAB PO PRN (08:30)
--- NOTE | 2024-09-18 13:04 | NUR ---
PT TRANSFERING TO 227. REPORT GIVEN TO BARON. D5% REMAINS INFUSING PER EMAR. VS STABLE. PAIN MEDS PER EMAR. PT IS A&OX4, AND ABLE TO MAKE HIS NEEDS KNOWN. TELE WAS D/C'D BUT HE WAS SR ON TELE. BP SLIGHTLY HYPERTENSIVE. HE REMAINS ON RA AND DENIES ANY SOB. NO FURTHER NOTES FROM THIS NURSE.
[2024-09-18 16:41] LABS: Anion Gap 11 mmol/L (3-11); Blood Urea Nitrogen 58 mg/dL (8-24); Bun/Creatinine Ratio 10.5 (12.0-20.0); CO2, Blood 22 mmol/L (21-32); Calcium, Blood 9.7 mg/dL (8.5-10.1); Chloride, Blood 112 mmol/L (98-108); Creatinine, Blood 5.54 mg/dL (0.60-1.20); Glomerular Filtration Rate 13 (60-); Glucose, Blood 100 mg/dL (70-99); Phosphorus, Blood 4.3 mg/dL (2.5-4.9); Potassium, Blood 3.7 mmol/L (3.5-5.5); Sodium, Blood 141 mmol/L (136-145)
--- NOTE | 2024-09-18 19:18 | NUR ---
SHIFT SUMMARY S/P ACUTE RENAL FAILURE/VOLUME DEPLETION/PLYCYSTIC KIDNEY DISEASE, A/OX4, VSS, TOLERATING PO, TRANSFERED FROM PCU TODAY, IV FLUIDS CONTINUE TO INFUSE PER ORDER, PAIN MANAGED WITH ORALS BUT HE STILL NEEDED SOME IV PAIN MEDS TO BRIDGE HIM BETWEEN DOSES PER EMAR. NO ACUTE EVENTS THIS SHIFT, CALL LIGTH IN REACH.
--- NOTE | 2024-09-18 22:30 | NUR ---
CALL TO PROVIDER, CHEST PAIN. PT REPORTED SX OF CHEST PAIN AND PRESSURE TO THIS RN. PT REPORTED CHEST PAIN INCREASING WITH DEEP BREATH INSPIRATION AND DESCRIBED ALSO AN UNRELENTING TIGHTNESS. NEW ORDERS RECEIVED FOR TELEMETRY, EKG AND STAT TROPONIN WITH REPEAT 2 HOURS AFTER FIRST.
[2024-09-19] VITALS (8 sets, daily range): BP systolic 134–163; BP diastolic 83–119
[2024-09-19 05:11] LABS: Hematocrit 24.7 % (37.0-53.0); Hemoglobin 7.2 g/dL (13.5-17.5)
[2024-09-19 05:37] LABS: Anion Gap 9 mmol/L (3-11); Blood Urea Nitrogen 57 mg/dL (8-24); Bun/Creatinine Ratio 9.9 (12.0-20.0); CO2, Blood 23 mmol/L (21-32); Calcium, Blood 9.5 mg/dL (8.5-10.1); Chloride, Blood 113 mmol/L (98-108); Creatinine, Blood 5.75 mg/dL (0.60-1.20); Glomerular Filtration Rate 13 (60-); Glucose, Blood 79 mg/dL (70-99); Magnesium, Blood 2.6 mg/dL (1.6-2.4); Phosphorus, Blood 4.4 mg/dL (2.5-4.9); Potassium, Blood 3.6 mmol/L (3.5-5.5); Sodium, Blood 141 mmol/L (136-145)
[2024-09-19] MEDS ORDERED: Omeprazole 20 MG CapCR PO SCH (06:00)
--- NOTE | 2024-09-19 06:11 | NUR ---
SHIFT SUMMARY NOC. PT A/O X4. ADMIT FOR ACUTE RENAL FAILURE. PT VOIDING CLEAR YELLOW URINE. NEW ORDERS RECEIVED THIS SHIFT R/T CHEST PAIN/PRESSURE, PLEASE SEE PREVIOUS NOTE. PT ON TELEMETRY WITH NO EVENTS, NSR. PT MEDICATED FOR PAIN WITH REPORTED RELIEF. CALL LIGHT IN REACH.
[2024-09-19] MEDS ORDERED: Acetaminophen 500 MG Tab PO PRN (07:00)
[2024-09-19 07:24] LABS: Hematocrit 25.6 % (37.0-53.0); Hemoglobin 7.3 g/dL (13.5-17.5); Mean Corpuscular HGB 22.9 pg (26.0-34.0); Mean Corpuscular HGB Conc 28.5 g/dL (31.5-36.5); Mean Corpuscular Volume 80 fL (80-100); Platelet Count 212 K/mm3 (150-400); RDW Coefficient Variation 17.1 % (11.7-14.2); RDW Standard Deviation 48.3 fL (35.1-46.3); Red Blood Cell Count 3.19 M/mm3 (4.30-5.90); White Blood Cell Count 7.24 K/mm3 (4.00-11.30)
[2024-09-19 12:33] LABS: Creatinine, Blood 5.91 mg/dL (0.60-1.20)
--- NOTE | 2024-09-19 12:50 | NUR ---
CALLED DR TODD W/1200 LAB RESULTS. NO NEW ORDERS AT THIS TIME.
[2024-09-19] MEDS ORDERED: Dextrose 5% 1,000 ML IV SCH (13:15)
[2024-09-19 18:23] LABS: Anion Gap 13 mmol/L (3-11); Blood Urea Nitrogen 56 mg/dL (8-24); Bun/Creatinine Ratio 9.5 (12.0-20.0); CO2, Blood 20 mmol/L (21-32); Calcium, Blood 9.6 mg/dL (8.5-10.1); Chloride, Blood 110 mmol/L (98-108); Creatinine, Blood 5.88 mg/dL (0.60-1.20); Glomerular Filtration Rate 12 (60-); Glucose, Blood 108 mg/dL (70-99); Potassium, Blood 3.7 mmol/L (3.5-5.5); Sodium, Blood 139 mmol/L (136-145)
--- NOTE | 2024-09-19 18:33 | NUR ---
SUMMARY CALLED DR TODD REGARDING 1800 LAB RESULTS PER ORDERS. NEW ORDERS OBTAINED. NO ACUTE CHANGES T/O SHIFT. PT VOIDING. TOLERATING PO. INDEPENDENT IN ROOM. MEDICATED PER ORDERS DURING SHIFT FOR R FLANK PAIN. CALL LIGHT IN REACH.
[2024-09-19] MEDS ORDERED: D5W-NS 1,000 ML IV SCH (18:35)
[2024-09-20 04:01] VITALS: BP 140/97
[2024-09-20 05:30] LABS: Hematocrit 24.5 % (37.0-53.0); Hemoglobin 7.3 g/dL (13.5-17.5); Mean Corpuscular HGB 23.4 pg (26.0-34.0); Mean Corpuscular HGB Conc 29.8 g/dL (31.5-36.5); Mean Corpuscular Volume 79 fL (80-100); Mean Platelet Volume 10.3 fL (9.1-12.4); Platelet Count 222 K/mm3 (150-400); RDW Coefficient Variation 17.2 % (11.7-14.2); RDW Standard Deviation 47.4 fL (35.1-46.3); Red Blood Cell Count 3.12 M/mm3 (4.30-5.90)
--- NOTE | 2024-09-20 05:50 | NUR ---
NOC SUMMARY- PT PAIN MANAGED WELL. PT VOIDING AND TOLERATING PO. PT INDEPENDANT IN ROOM. PT SLEEPING OFF AND ON. PT HAD SOME NAUSEA AND TX PER MAR WITH RELIEF. PT IS TO BE TRANSFERED TO MEDICAL FLOOR. CALL LIGHT IN REACH.
--- NOTE | 2024-09-20 06:09 | NUR ---
REPORT RECEIVED FROM HERMILA (CHIMNEY SWEEPER) AND AWAITING PT T/F TO ROOM 311.
[2024-09-20 06:10] LABS: Anion Gap 10 mmol/L (3-11); Blood Urea Nitrogen 54 mg/dL (8-24); Bun/Creatinine Ratio 9.2 (12.0-20.0); CO2, Blood 23 mmol/L (21-32); Calcium, Blood 8.9 mg/dL (8.5-10.1); Chloride, Blood 113 mmol/L (98-108); Creatinine, Blood 5.84 mg/dL (0.60-1.20); Glomerular Filtration Rate 12 (60-); Glucose, Blood 89 mg/dL (70-99); Magnesium, Blood 2.4 mg/dL (1.6-2.4); Phosphorus, Blood 4.7 mg/dL (2.5-4.9); Potassium, Blood 3.8 mmol/L (3.5-5.5); Sodium, Blood 142 mmol/L (136-145)
[2024-09-20 06:29] VITALS: BP 133/76
[2024-09-20 07:36] VITALS: BP 144/90
--- NOTE | 2024-09-20 08:33 | NUR ---
NO CHANGES SINCE PT T/F TO ROOM 311 AT 0625. HE WAS ORIENTED TO NEW ROOM, DENIED PAIN/COMPLAINTS AND FELL BACK TO SLEEP QUICKLY. D5NS INFUSING TO L.AC IV AND PT UP AD MACIEJ IN ROOM NEEDED. NO ACUTE CHANGES, VSS/AFEBRILE. REPORT PROVIDED TO DAY RN.
[2024-09-20 12:05] VITALS: BP 141/91
[2024-09-20] MEDS ORDERED: Calcium Carbon500 MG PO (13:56)
[2024-09-20] MEDS ORDERED: NIFE90ER PO (13:56)
[2024-09-20] MEDS ORDERED: Amitriptyline H10 MG PO (13:56)
[2024-09-20] MEDS ORDERED: CATAPRES0.1 MG PO (13:56)
[2024-09-20] MEDS ORDERED: OMEP20ER PO (13:57)
[2024-09-20] MEDS ORDERED: OXYC5 PO (13:57)
--- NOTE | 2024-09-20 16:04 | NUR ---
PT DISCHARGED HOME. RIDE PROVIDED BY [employer]. DISCHARGE INSTRUCTIONS DISCUSSED WITH PT. EMPHASIZED IMPORTANCE OF FOLLOW UP VISIT. PT VERBALIZED UNDERSTANDING. NO QUESTIONS OR CONCERNS AT TIME OF DISCHARGE.
== END 2024-09-20 15:15 | disposition home or self-care (01) | DRG 682 ==
LOC: ER 23:47 → PCU 09-15 02:48 → ERHOLD 09-15 02:48 → MEDS 09-15 02:48 → PCU 09-15 05:36 → SURS 09-18 13:01 → MEDS 09-20 06:27
PROVIDERS: Emergency Medicine; Internal Medicine; Internal Medicine Nephrology; Registered Nurse; Student in an Organized Health Care Education/Training Program; ADMIT Internal Medicine
PROC: 30233N1 Transfusion of Nonautologous Red Blood Cells into Peripheral Vein, Percutaneous Approach (ICD-10-PCS; principal; 2024-09-16)
DX: N17.9 Acute kidney failure, unspecified (principal); Q39.0 Atresia of esophagus without fistula; Q39.3 Congenital stenosis and stricture of esophagus; I16.1 Hypertensive emergency; Q61.2 Polycystic kidney, adult type; E87.0 Hyperosmolality and hypernatremia; F31.9 Bipolar disorder, unspecified; M79.7 Fibromyalgia; G43.909 Migraine, unspecified, not intractable, without status migrainosus; K21.9 Gastro-esophageal reflux disease without esophagitis; G40.909 Epilepsy, unspecified, not intractable, without status epilepticus; I12.9 Hypertensive chronic kidney disease with stage 1 through stage 4 chronic kidney disease, or unspecified chronic kidney disease; N18.4 Chronic kidney disease, stage 4 (severe); M43.9 Deforming dorsopathy, unspecified; D63.1 Anemia in chronic kidney disease; E83.52 Hypercalcemia; E87.6 Hypokalemia; N25.81 Secondary hyperparathyroidism of renal origin; G93.0 Cerebral cysts; E83.39 Other disorders of phosphorus metabolism; G47.33 Obstructive sleep apnea (adult) (pediatric); Z79.811 Long term (current) use of aromatase inhibitors; Z86.73 Personal history of transient ischemic attack (TIA), and cerebral infarction without residual deficits; Z88.8 Allergy status to other drugs, medicaments and biological substances; Z79.891 Long term (current) use of opiate analgesic; Z79.899 Other long term (current) drug therapy; Z79.2 Long term (current) use of antibiotics; Z90.49 Acquired absence of other specified parts of digestive tract; Z87.440 Personal history of urinary (tract) infections
CPT/HCPCS: 36415; 36430; 74176; 80053; 80069; 81001; 82306; 82330; 82565; 83605; 83735; 83970; 84100; 84132; 84484; 85014; 85018; 85025; 85027; 86850; 86900; 86901; 86923; 93005; 93010; 94762; 96374; 96375; 99285-25; A9270; J0360; J1171; J2405; J3480; J7030; J7042; J7070; P9016

== ENCOUNTER 2024-09-26 00:18 | Inpatient (IN) | payer OTHER ==
[~2024-09-26] VITALS: Ht 180.3 cm; Wt 93.6 kg
[~2024-09-26 00:18] MED LIST changes: +Amitriptyline H10 MG PO; +CATAPRES0.1 MG PO; +Calcium Carbon500 MG PO; +NIFE90ER PO; +OXYC5 PO
[2024-09-26] MEDS ORDERED: NS 1,000 ML IV SCH ×2 (00:30→07:00)
[2024-09-26] MEDS ORDERED: Lisinopril 5 MG Tab PO ONE (00:35)
[2024-09-26] MEDS ORDERED: NIFEdipine 90 MG TabCR PO ONE (00:35)
[2024-09-26] MEDS ORDERED: Metoclopramide HCl 5MG / ML 2ML Vial IV ONE (00:35)
[2024-09-26] MEDS ORDERED: CloNIDine 0.1 MG Tab PO ONE (00:35)
[2024-09-26] MEDS ORDERED: DiphenhydrAMINE HCl 50 MG/ML 1ML Vial IV ONE (00:35)
[2024-09-26] MEDS ORDERED: Morphine Sulfate 4 MG/1 ML Injection IV ONE (00:35)
[2024-09-26 00:37] LABS: BASOPHILS PERCENT AUTO 1 % (0-2); EOSINOPHILS ABSOLUTE AUTO 0.59 K/mm3 (0.00-0.68); EOSINOPHILS PERCENT AUTO 5 % (0-6); Hematocrit 29.4 % (37.0-53.0); Hemoglobin 8.8 g/dL (13.5-17.5); IMMATURE GRAN ABSOLUTE AUTO 0.04 K/mm3 (0.00-0.10); IMMATURE GRAN PERCENT AUTO 0 % (0-1); LYMPHOCYTES ABSOLUTE AUTO 1.06 K/mm3 (0.84-5.20); LYMPHOCYTES PERCENT AUTO 10 % (21-46); MONOCYTES ABSOLUTE AUTO 0.59 K/mm3 (0.16-1.47); MONOCYTES PERCENT AUTO 5 % (4-13); Mean Corpuscular HGB Conc 29.9 g/dL (31.5-36.5); Mean Corpuscular Volume 77 fL (80-100); Mean Platelet Volume 10.6 fL (9.1-12.4); NEUTROPHILS ABSOLUTE AUTO 8.54 K/mm3 (1.96-9.15); NEUTROPHILS PERCENT AUTO 78 % (41-73); Platelet Count 247 K/mm3 (150-400); RDW Coefficient Variation 17.2 % (11.7-14.2); RDW Standard Deviation 47.2 fL (35.1-46.3); Red Blood Cell Count 3.83 M/mm3 (4.30-5.90); White Blood Cell Count 10.92 K/mm3 (4.00-11.30)
[2024-09-26 00:55] LABS: Albumin, Blood 3.6 g/dL (3.4-5.0); Albumin/Globulin Ratio 0.9 (0.8-1.8); Bilirubin, Total 0.3 mg/dL (0.1-1.0); Bun/Creatinine Ratio 7.8 (12.0-20.0); Calcium, Blood 12.7 mg/dL (8.5-10.1); Creatinine, Blood 7.29 mg/dL (0.60-1.20); Magnesium, Blood 1.9 mg/dL (1.6-2.4); Potassium, Blood 3.3 mmol/L (3.5-5.5); Total Protein, Blood 7.6 g/dL (6.4-8.2)
[2024-09-26] MEDS ORDERED: Metoclopramide HCl 10 MG Tab PO PRN (02:05)
[2024-09-26] MEDS ORDERED: Potassium Chl 20MEQ/Water100ML 100 ML IV STA (02:09)
[2024-09-26] MEDS ORDERED: Labetalol HCL 5 MG/ML 4ML Injection (Single Dose) IV PRN (02:15)
[2024-09-26] MEDS ORDERED: HydrALAZINE HCl 20 MG / ML 1ML Vial IV PRN (02:25)
[2024-09-26] MEDS ORDERED: Lactated Ringer's 1,000 ML IV SCH (03:10)
[2024-09-26 04:59] LABS: BASOPHILS ABSOLUTE AUTO 0.07 K/mm3 (0.00-0.23); BASOPHILS PERCENT AUTO 1 % (0-2); EOSINOPHILS ABSOLUTE AUTO 0.15 K/mm3 (0.00-0.68); EOSINOPHILS PERCENT AUTO 2 % (0-6); Hematocrit 25.4 % (37.0-53.0); Hemoglobin 7.5 g/dL (13.5-17.5); IMMATURE GRAN ABSOLUTE AUTO 0.02 K/mm3 (0.00-0.10); IMMATURE GRAN PERCENT AUTO 0 % (0-1); LYMPHOCYTES ABSOLUTE AUTO 0.82 K/mm3 (0.84-5.20); LYMPHOCYTES PERCENT AUTO 9 % (21-46); MONOCYTES ABSOLUTE AUTO 0.34 K/mm3 (0.16-1.47); MONOCYTES PERCENT AUTO 4 % (4-13); Mean Corpuscular HGB 23.2 pg (26.0-34.0); Mean Corpuscular HGB Conc 29.5 g/dL (31.5-36.5); Mean Corpuscular Volume 79 fL (80-100); Mean Platelet Volume 10.6 fL (9.1-12.4); NEUTROPHILS ABSOLUTE AUTO 7.66 K/mm3 (1.96-9.15); NEUTROPHILS PERCENT AUTO 84 % (41-73); Platelet Count 203 K/mm3 (150-400); RDW Coefficient Variation 17.1 % (11.7-14.2); RDW Standard Deviation 47.4 fL (35.1-46.3); Red Blood Cell Count 3.23 M/mm3 (4.30-5.90); White Blood Cell Count 9.06 K/mm3 (4.00-11.30)
[2024-09-26] MEDS ORDERED: Omeprazole 20 MG CapCR PO PRN (05:25)
[2024-09-26 05:37] LABS: Albumin/Globulin Ratio 0.9 (0.8-1.8); Bilirubin, Total 0.5 mg/dL (0.1-1.0); Bun/Creatinine Ratio 8.1 (12.0-20.0); Calcium, Blood 11.5 mg/dL (8.5-10.1); Creatinine, Blood 6.94 mg/dL (0.60-1.20); Globulin, Blood 3.4 g/dL (2.2-4.0); Potassium, Blood 4.4 mmol/L (3.5-5.5); Total Protein, Blood 6.4 g/dL (6.4-8.2)
[2024-09-26 06:16] LABS: Phosphorus, Blood 6.3 mg/dL (2.5-4.9)
[2024-09-26] MEDS ORDERED: Acetaminophen 500 MG Tab PO PRN (07:45)
[2024-09-26] MEDS ORDERED: HYDROmorphone HCl/Pf 1MG SYR IV ONE (08:50)
[2024-09-26] MEDS ORDERED: LamoTRIgine 100 MG Tab PO SCH (09:00)
[2024-09-26] MEDS ORDERED: CloNIDine 0.1 MG Tab PO SCH (09:00)
[2024-09-26] MEDS ORDERED: Sod Ferric Gluc Complx/Sucrose 125 MG in NS 100 ML IV SCH (09:00)
[2024-09-26] MEDS ORDERED: NIFEdipine 90 MG TabCR PO SCH (09:00)
[2024-09-26] MEDS ORDERED: HYDROmorphone HCl 2 MG Tab PO ONE (09:00)
[2024-09-26] MEDS ORDERED: ARIPiprazole 10 MG Tab PO SCH (09:00)
[2024-09-26] MEDS ORDERED: Calcium Carbonate 500 MG Tab Chew PO SCH (09:00)
[2024-09-26 09:06] LABS: Source, Urine Clean Catch
[2024-09-26 09:16] LABS: Appearance, Urine Clear (Clear); Bilirubin, Urine Neg (Neg); Blood, Urine 5+ (Neg); Glucose Qualitative, Urine Neg (Neg); Ketones, Urine Neg (Neg); Leukocyte Esterase, Urine Neg (Neg); Nitrite, Urine Neg (Neg); Protein, Urine 3+ (Neg); Urobilinogen, Urine NORM (Normal)
[2024-09-26 09:21] LABS: Color, Urine Pale Yellow (P-Yellow)
[2024-09-26 09:41] LABS: White Blood Cells, Urine 0-2 /hpf (0-5)
[2024-09-26 09:43] LABS: Bacteria Rare /hpf; Squamous Epithelial Cells Rare /hpf (Few)
[2024-09-26] MEDS ORDERED: HYDROmorphone HCl 2 MG Tab PO PRN ×2 (13:00→17:55)
[2024-09-26 17:12] VITALS: BP 137/81
--- NOTE | 2024-09-26 17:15 | NUR ---
PT ADMITTED FROM ED. PT IS A/OX4, INDEPENDENT IN THE ROOM. PT REPORTS RA AT BASELINE, REQUESTING 2L NC FOR PRN USE. ON TELE RUNNING NORMAL SINUS RYTHYM IN THE 60'S. PT REPORTS N/V HAS RESOLVED AT THIS TIME. C/O ABDOMINAL PAIN THAT THIS TENDER UPON PALPATION. PT CALLS APPROPRIATELY USING THE CALL LIGHT. PLEASANT AND COOPERATIVE WITH CARE.
[2024-09-26 19:29] VITALS: BP 115/83
[2024-09-26] MEDS ORDERED: Amitriptyline HCl 10 MG Tab PO SCH (21:00)
[2024-09-27] VITALS (8 sets, daily range): BP systolic 128–153; BP diastolic 67–89
[2024-09-27] MEDS ORDERED: HYDROmorphone HCl 2 MG Tab PO ONE (03:50)
[2024-09-27] MEDS ORDERED: FentaNYL Citrate 50 MCG/ML 2 ML Injection IV ONE (05:30)
[2024-09-27] MEDS ORDERED: NS 1,000 ML IV SCH (05:45)
[2024-09-27 06:18] LABS: BASOPHILS ABSOLUTE AUTO 0.05 K/mm3 (0.00-0.23); BASOPHILS PERCENT AUTO 1 % (0-2); EOSINOPHILS ABSOLUTE AUTO 0.77 K/mm3 (0.00-0.68); EOSINOPHILS PERCENT AUTO 11 % (0-6); Hematocrit 25.6 % (37.0-53.0); Hemoglobin 7.5 g/dL (13.5-17.5); IMMATURE GRAN ABSOLUTE AUTO 0.01 K/mm3 (0.00-0.10); IMMATURE GRAN PERCENT AUTO 0 % (0-1); LYMPHOCYTES ABSOLUTE AUTO 1.51 K/mm3 (0.84-5.20); LYMPHOCYTES PERCENT AUTO 22 % (21-46); MONOCYTES PERCENT AUTO 9 % (4-13); Mean Corpuscular HGB 23.4 pg (26.0-34.0); Mean Corpuscular HGB Conc 29.3 g/dL (31.5-36.5); Mean Corpuscular Volume 80 fL (80-100); Mean Platelet Volume 10.6 fL (9.1-12.4); NEUTROPHILS ABSOLUTE AUTO 3.94 K/mm3 (1.96-9.15); NEUTROPHILS PERCENT AUTO 57 % (41-73); Platelet Count 188 K/mm3 (150-400); RDW Coefficient Variation 17.6 % (11.7-14.2); RDW Standard Deviation 50.2 fL (35.1-46.3); White Blood Cell Count 6.88 K/mm3 (4.00-11.30)
[2024-09-27 06:41] LABS: Albumin, Blood 2.9 g/dL (3.4-5.0); Albumin/Globulin Ratio 0.8 (0.8-1.8); Bilirubin, Total 0.5 mg/dL (0.1-1.0); Bun/Creatinine Ratio 7.7 (12.0-20.0); Calcium, Blood 10.7 mg/dL (8.5-10.1); Creatinine, Blood 7.16 mg/dL (0.60-1.20); Globulin, Blood 3.5 g/dL (2.2-4.0); Magnesium, Blood 2.2 mg/dL (1.6-2.4); Phosphorus, Blood 4.3 mg/dL (2.5-4.9); Potassium, Blood 3.7 mmol/L (3.5-5.5); Total Protein, Blood 6.4 g/dL (6.4-8.2)
--- NOTE | 2024-09-27 06:47 | NUR ---
Shift Summary Pt c/o severe bilateral flank pain wrapping around his abdomen t/o the night. I medicated per emar and when that didn't provide relief I called the night hospitalist who placed one time orders, see EMAR. With OT orders on top of scheduled orders pt's pain was still poorly managed never dropping below 8/10, he is currently at 9/10. Dr. Botello saw pt this morning and ordered NS @ 100 continuous. Hgb lab stable but not improving, 7.5 yesterday and 7.5 this AM. Pt is AOx4, indpenedent in the room. He slept 2-3 hours.
[2024-09-27] MEDS ORDERED: Ondansetron HCl 2 MG / ML 2ML Vial IV PRN (09:10)
[2024-09-27] MEDS ORDERED: Polyethylene Glycol 3350 17 gm PO PRN (09:50)
[2024-09-27] MEDS ORDERED: Loratadine 10 MG Tab PO SCH (10:00)
[2024-09-27] MEDS ORDERED: HYDROmorphone HCl 0.5 MG/0.5 ML SYR IV ONE (10:00)
[2024-09-27] MEDS ORDERED: HYDROmorphone HCl 0.5 MG/0.5 ML SYR IV PRN (10:00)
[2024-09-27] MEDS ORDERED: Darbepoetin Alfa In Albumn Sol 40 MCG/0.4 ML SC SCH (16:00)
--- NOTE | 2024-09-27 18:47 | NUR ---
SHIFT SUMMARY PT IS A/OX4, INDEPEDENT IN THE ROOM. NS RUNNING @ 50 ML/HR. DR VALDOVINOS CONSULTED THIS MORNING FOR PERMCATH PLACEMENT. PT CONTINUES TO C/O BILAT FLANK PAIN, MEDICATED WITH IV DILUADID WITH IV ZOFRAN PER SEP. PT ALSO C/O PRURITIS TO THE GLUTES THIS MORNING. PHYSICAN NOTIFIED. MEDICATED WITH CLARITIN PER SEP AND MICONAZOLE POWDER ORDERED. PT ON STRICT I&O'S, USING URINAL INDEPENDENTLY AT BEDSIDE. PT CALLS APPROPRIATELY USING THE CALL LIGHT.
[2024-09-27] MEDS ORDERED: Miconazole Nitrate 2% 85 GM PWD TOP SCH (21:00)
[2024-09-28] VITALS (15 sets, daily range): BP systolic 109–141; BP diastolic 52–88
[2024-09-28 05:51] LABS: BASOPHILS ABSOLUTE AUTO 0.07 K/mm3 (0.00-0.23); BASOPHILS PERCENT AUTO 1 % (0-2); EOSINOPHILS ABSOLUTE AUTO 1.01 K/mm3 (0.00-0.68); EOSINOPHILS PERCENT AUTO 11 % (0-6); Hematocrit 28.6 % (37.0-53.0); Hemoglobin 8.3 g/dL (13.5-17.5); IMMATURE GRAN ABSOLUTE AUTO 0.03 K/mm3 (0.00-0.10); IMMATURE GRAN PERCENT AUTO 0 % (0-1); LYMPHOCYTES ABSOLUTE AUTO 1.27 K/mm3 (0.84-5.20); LYMPHOCYTES PERCENT AUTO 14 % (21-46); MONOCYTES ABSOLUTE AUTO 0.67 K/mm3 (0.16-1.47); MONOCYTES PERCENT AUTO 7 % (4-13); Mean Corpuscular HGB 23.4 pg (26.0-34.0); Mean Corpuscular Volume 81 fL (80-100); Mean Platelet Volume 11.1 fL (9.1-12.4); NEUTROPHILS ABSOLUTE AUTO 6.31 K/mm3 (1.96-9.15); NEUTROPHILS PERCENT AUTO 67 % (41-73); Platelet Count 206 K/mm3 (150-400); RDW Standard Deviation 51.1 fL (35.1-46.3); Red Blood Cell Count 3.55 M/mm3 (4.30-5.90); White Blood Cell Count 9.36 K/mm3 (4.00-11.30)
--- NOTE | 2024-09-28 05:52 | NUR ---
Shift Summary Pt less painful than yesterday, he did not request any pain medicine from 2320 to 0600. He slept off on and t/o the night, he was lethargic and somnolent and he has not slept well for 3 days. No BM this shift despite miralax yesterday and prune juice tonight. He is rcving NS @ 50. He did need Zofran x1 after IV dilauded b/c it makes him nauseous. He is AOx4, independent, on tele no events.
[2024-09-28 06:15] LABS: Albumin, Blood 3.4 g/dL (3.4-5.0); Albumin/Globulin Ratio 0.9 (0.8-1.8); Bilirubin, Total 0.2 mg/dL (0.1-1.0); Calcium, Blood 10.4 mg/dL (8.5-10.1); Creatinine, Blood 6.87 mg/dL (0.60-1.20); Globulin, Blood 3.8 g/dL (2.2-4.0); Potassium, Blood 3.8 mmol/L (3.5-5.5); Total Protein, Blood 7.2 g/dL (6.4-8.2)
[2024-09-28] MEDS ORDERED: OxyCODONE 5 mg/Acetamin 325 mg TABLET PO PRN (07:20)
[2024-09-28] MEDS ORDERED: HYDROmorphone HCl 0.5 MG/0.5 ML SYR IV PRN ×2 (07:20→19:55)
[2024-09-28] MEDS ORDERED: NS 250 ML IV ONE (13:17)
[2024-09-28] MEDS ORDERED: Heparin Sodium 1000 Units/ML 10ML MDV ONE (13:17)
[2024-09-28] MEDS ORDERED: NS 1,000 ML IV ONE (13:46)
[2024-09-28] MEDS ORDERED: FentaNYL Citrate 50 MCG/ML 2 ML Injection ONE (13:51)
[2024-09-28] MEDS ORDERED: Midazolam HCl 1MG / ML 2ML Vial ONE (13:51)
--- NOTE | 2024-09-28 14:55 | NUR ---
VERBAL BEDSIDE REPORT GIVEN TO RN. PERMACATH IN PLACE, SITE C/D/I. PATIENT TOLERATED PROCEDURE WELL ON LIGHT SEDATION. VSS ON RA. PATIENT CONVERSING APPROPRIATELY.
[2024-09-28 16:21] LABS: HEPATITIS A ANTIBODY, IGM Negative (Negative); HEPATITIS B CORE ANTIBODY, IGM Negative (Negative); HEPATITIS B SURFACE ANTIGEN Negative (Negative); HEPATITIS C AB CIA INTERP Negative (Negative); HEPATITIS C ANTIBODY CIA INDEX 0.15 IV
[2024-09-28] MEDS ORDERED: Bisacodyl 5 MG TabEC PO PRN (19:55)
[2024-09-28] MEDS ORDERED: Sennosides 8.6 MG Tab PO SCH (21:00)
[2024-09-28] MEDS ORDERED: Calcium Carbonate 500 MG Tab Chew PO ONE (22:50)
[2024-09-29] VITALS (22 sets, daily range): BP systolic 120–237; BP diastolic 60–221
--- NOTE | 2024-09-29 04:07 | NUR ---
PT REFUSED ICE PACKS - REPORTS HE "THINKS IT WILL CAUSE HIS FIBROMYALGIA TO ACT UP." PT HAD 4 BLANKETS ON, AND ONE WRAPPED AROUND HIS SHOULDERS - REMOVED 2 BLANKETS. TEMP 99.1 ORAL.
--- NOTE | 2024-09-29 04:59 | NUR ---
SHIFT SUMMARY - PT DEVELOPED A FEVER TONIGHT - MEDICATED WITH TYLENOL - SEE VS, OTHERWISE NO ACUTE CHANGES THIS SHIFT. MEDICATED FOR PAIN WITH PERCOCET/DILAUDED FOR BREAKTHROUGH PAIN. PERMACATH SITE TO R CHEST WALL SITE IS WNL. PT AMBULATORY WITH A SBA OR INDEPENDENT TO BRP. PO FLUIDS AT BEDSIDE. CALL LIGHT WITHIN REACH. BED IN LOW POSITION. PT HAS BEEN OFF/ON SLEEPING THROUGHOUT MOST OF THE NIGHT. WILL REPORT OFF TO ONCOMING SHIFT.
[2024-09-29 05:17] LABS: BASOPHILS ABSOLUTE AUTO 0.06 K/mm3 (0.00-0.23); BASOPHILS PERCENT AUTO 1 % (0-2); EOSINOPHILS ABSOLUTE AUTO 0.63 K/mm3 (0.00-0.68); EOSINOPHILS PERCENT AUTO 6 % (0-6); Hematocrit 26.7 % (37.0-53.0); Hemoglobin 7.8 g/dL (13.5-17.5); IMMATURE GRAN ABSOLUTE AUTO 0.03 K/mm3 (0.00-0.10); IMMATURE GRAN PERCENT AUTO 0 % (0-1); LYMPHOCYTES ABSOLUTE AUTO 0.32 K/mm3 (0.84-5.20); LYMPHOCYTES PERCENT AUTO 3 % (21-46); MONOCYTES PERCENT AUTO 6 % (4-13); Mean Corpuscular HGB Conc 29.2 g/dL (31.5-36.5); Mean Corpuscular Volume 79 fL (80-100); Mean Platelet Volume 10.7 fL (9.1-12.4); NEUTROPHILS ABSOLUTE AUTO 9.13 K/mm3 (1.96-9.15); NEUTROPHILS PERCENT AUTO 84 % (41-73); Platelet Count 187 K/mm3 (150-400); RDW Standard Deviation 48.8 fL (35.1-46.3); Red Blood Cell Count 3.39 M/mm3 (4.30-5.90); White Blood Cell Count 10.87 K/mm3 (4.00-11.30)
[2024-09-29 05:45] LABS: Albumin, Blood 3.1 g/dL (3.4-5.0); Albumin/Globulin Ratio 0.9 (0.8-1.8); Bilirubin, Total 0.2 mg/dL (0.1-1.0); Bun/Creatinine Ratio 5.9 (12.0-20.0); Calcium, Blood 9.4 mg/dL (8.5-10.1); Creatinine, Blood 5.22 mg/dL (0.60-1.20); Globulin, Blood 3.6 g/dL (2.2-4.0); Magnesium, Blood 1.9 mg/dL (1.6-2.4); Phosphorus, Blood 2.6 mg/dL (2.5-4.9); Potassium, Blood 3.6 mmol/L (3.5-5.5); Total Protein, Blood 6.7 g/dL (6.4-8.2)
[2024-09-29 08:18] LABS: HBV CORE ANTIBODIES,TOTAL Negative (Negative)
[2024-09-29 08:26] LABS: HEPATITIS B SURFACE ANTIBODY <3.10 IU/L; HEPATITIS B SURFACE ANTIGEN Negative (Negative); HEPATITIS BE ANTIBODY Negative (Negative); HEPATITIS BE ANTIGEN Negative (Negative)
[2024-09-29] MEDS ORDERED: Losartan Potassium 25 MG Tab PO SCH (09:00)
[2024-09-29] MEDS ORDERED: Vancomycin HCL 1,750 MG in NS 500 ML IV ONE (12:20)
[2024-09-29 12:58] LABS: Source, Urine Straight Cath
[2024-09-29] MEDS ORDERED: Heparin Sodium 5000 Units/ML 1ML MDV SC SCH (13:00)
[2024-09-29 13:05] LABS: Appearance, Urine Clear (Clear); Bilirubin, Urine Neg (Neg); Blood, Urine 1+ (Neg); Glucose Qualitative, Urine 2+ (Neg); Ketones, Urine Neg (Neg); Leukocyte Esterase, Urine 1+ (Neg); Nitrite, Urine Neg (Neg); Protein, Urine 3+ (Neg); Urobilinogen, Urine NORM (Normal)
[2024-09-29] MEDS ORDERED: NS 250 ML IV PRN (13:10)
[2024-09-29 13:24] LABS: Color, Urine Pale Yellow (P-Yellow)
[2024-09-29 13:25] LABS: Bacteria Few /hpf; Red Blood Cells, Urine 0-2 /hpf (0-2); Squamous Epithelial Cells Rare /hpf (Few)
[2024-09-29 13:31] LABS: CORONAVIRUS COVID-19 AG Negative (NEGATIVE); INFLUENZA A AG Negative (NEGATIVE); INFLUENZA B AG Negative (NEGATIVE)
--- NOTE | 2024-09-29 18:44 | NUR ---
SUMMARY- PT A/O X4, INDEPENDANT IN ROOM, AMBULATES TO BATHROM AND USES THE URINAL. FIRST DIALYSIS LAST NIGHT AND 2ND THIS AM AT 0900, 900ML PULLED OFF. PT TEMP MAX 102.O JUST BEFORE DIALYSIS. BLOD CULTURES DRAWN FROM 2 PERIPH SITES AND PERMACATH. SENT URINALYSIS BUT WAS A CLEAN CATCH, NOT CATHED (PT HAD ALREADY GIVEN A SPEC) PT HAVING PAIN IN BILAT FLANK, MEDICATED WITH ALTERNATING PERCOCET AND DILAUDID FOR BTP, WITH EFFECTIVE RELEIF. PT TELE SR/ST, PT BECAME HYPERTENSIVE DURING DIALYSIS, WENT DOWNSTAIRS TO GIVE PT PAIN MED AND BP MED. AFTER DIALYSIS PT WAS SHIVERING, CONT WITH TEMP. MEDICATED WITH HYDRALAZINE AT 1200 AND BP CAME DOWN NICELY. MED WITH TYLENOL, TEMP CAME DOWN TO 101. LUNGS CLEAR. PT OCC DESATS TO 88% WHEN ASLEEP, ENC COUGH AND DEEP BREATH. PLACED OXYGEN ON FOR A FEW HOURS UNTIL HE WOKE FROM HIS NAP. GIVEN LAXATIVE FOR BM, NONE SINCE ADMIT 09/26. INFILTRATED IF LAC WITH PHLEBITIS, L ARM +2 EDEMA. APPLIED A HEAT PAD FOR COMRORT. BOTTOM SHAFED WITH RED CARLITOS, APPLIED SKIN BARRIER AND MICONOZOLE. WILL REPORT TO NOC AICHA
[2024-09-29 23:14] LABS: QUANTIFERON MITOGEN MINUS NIL 4.18 IU/mL; QUANTIFERON NIL 0.02 IU/mL; QUANTIFERON PLUS TB2 MINUS NIL 0.01 IU/mL (<=0.34)
[2024-09-30] VITALS (21 sets, daily range): BP systolic 116–197; BP diastolic 64–111
[2024-09-30 04:36] LABS: Hematocrit 29.4 % (37.0-53.0); Hemoglobin 8.6 g/dL (13.5-17.5)
[2024-09-30 05:08] LABS: Albumin, Blood 3.2 g/dL (3.4-5.0); Anion Gap 10 mmol/L (3-11); Blood Urea Nitrogen 26 mg/dL (8-24); CO2, Blood 29 mmol/L (21-32); Calcium, Blood 8.7 mg/dL (8.5-10.1); Chloride, Blood 100 mmol/L (98-108); Creatinine, Blood 5.16 mg/dL (0.60-1.20); Glomerular Filtration Rate 14 (60-); Glucose, Blood 111 mg/dL (70-99); Magnesium, Blood 2.1 mg/dL (1.6-2.4); Phosphorus, Blood 2.6 mg/dL (2.5-4.9); Potassium, Blood 3.7 mmol/L (3.5-5.5); Sodium, Blood 135 mmol/L (136-145)
--- NOTE | 2024-09-30 05:42 | NUR ---
SHIFT SUMMARY PT WITH T-MAX 103.UNABLE TO GIVE TYLENOL SECONDARY TO DAILY MAX DOSE. REFORMATORY ATTENDANT PROVIDER NOTIFIED- NO FURTHER ORDERS. PT COOLED BY LOWERING ROOM TEMPERATURE AND COOL WASHCLOTHES- PT REFUSING ICEPACKS, STATING THEY MAY CAUSE SEIZURES DUE TO HIS FIBROMYALGIA. TEMP LABILE THROUGH THE NIGHT. BLOOD CULTURES CAME BACK WITH PRELIMINARY 2 BOTTLES + GRAM POSITIVE COCCI IN CLUSTERS. PT WITH VANCOMYCIN ORDERED PER PHARMACY DOSING. REFORMATORY ATTENDANT PROVIDER NOTIFIED- NO FURTHER ORDERS. PT MEDICATED FOR FLANK PAIN PER EMAR. PT SLEPT INTERMITTENTLY DURING THE NIGHT. BED IN LOWEST POSITION, CALL LIGHT WITHIN REACH, SIDERAILS UP X2.
[2024-09-30 07:06] LABS: BASOPHILS ABSOLUTE AUTO 0.06 K/mm3 (0.00-0.23); BASOPHILS PERCENT AUTO 1 % (0-2); EOSINOPHILS PERCENT AUTO 0 % (0-6); Hematocrit 29.4 % (37.0-53.0); Hemoglobin 8.7 g/dL (13.5-17.5); IMMATURE GRAN ABSOLUTE AUTO 0.05 K/mm3 (0.00-0.10); IMMATURE GRAN PERCENT AUTO 1 % (0-1); LYMPHOCYTES ABSOLUTE AUTO 0.39 K/mm3 (0.84-5.20); LYMPHOCYTES PERCENT AUTO 4 % (21-46); MONOCYTES ABSOLUTE AUTO 0.22 K/mm3 (0.16-1.47); MONOCYTES PERCENT AUTO 2 % (4-13); Mean Corpuscular HGB 23.7 pg (26.0-34.0); Mean Corpuscular HGB Conc 29.6 g/dL (31.5-36.5); Mean Corpuscular Volume 80 fL (80-100); Mean Platelet Volume 11.4 fL (9.1-12.4); NEUTROPHILS ABSOLUTE AUTO 8.41 K/mm3 (1.96-9.15); NEUTROPHILS PERCENT AUTO 92 % (41-73); Platelet Count 145 K/mm3 (150-400); RDW Coefficient Variation 19.8 % (11.7-14.2); RDW Standard Deviation 54.4 fL (35.1-46.3); Red Blood Cell Count 3.67 M/mm3 (4.30-5.90); White Blood Cell Count 9.13 K/mm3 (4.00-11.30)
[2024-09-30] MEDS ORDERED: Polyethylene Glycol 3350 17 gm PO SCH (09:00)
[2024-09-30 13:20] LABS: Vancomycin, Random 19.8 ug/mL
--- NOTE | 2024-09-30 17:47 | NUR ---
SHIFT SUMMARY: PATIENT A/OX4, PLEASANT AND COOPERATIVE c CARE. PATIENT DENIES CP/PRESSURE, SOB AND DIZZINESS. PATIENT ON TELE, ST HR RANGES 110'S TO 120'S BPM. PATIENT HAD COUPLE EPISODE HR WENT UP TO 130'S-150'S BPM c AMBULATION TO BATHROOM. PATIENT HAD A MAX TEMP OF 104.1 THIS SHIFT, MEDICATED c TYLENOL. DR. SILVA IS AWARE. PATIENT HAD OT EPISODE OF VOMITING THIS AM. PATIENT REPORTS PAIN TO HD CATH SITE AND ABDOMEN. PATIENT MEDICATED FOR NAUSEA AND FOR PAIN PER EMAR c GOOD EFFECT. PATIENT HAS POOR APPETITE, CONTINENT OF BOWEL/BLADDER, AMBULATES TO BATHROOM INDEPENDENTLY. PATIENT HAD 1 LARGE BM THIS SHIFT. PATIENT WAS DIALYZED TODAY, c [address] VALDOVINOS CAME IN AT 1815 REMOVED HD CATHETER TO R UPPER CHEST WALL CLEAR DRESSING IN PLACED. PATIENT SITTING UP IN BED c CALL LIGHT IN REACH.
[2024-09-30] MEDS ORDERED: Vancomycin HCL 1,000 MG in NS 250 ML IV SCH (21:00)
[2024-10-01] VITALS (7 sets, daily range): BP systolic 121–145; BP diastolic 58–82
[2024-10-01 05:34] LABS: Hematocrit 29.6 % (37.0-53.0); Hemoglobin 8.6 g/dL (13.5-17.5)
--- NOTE | 2024-10-01 05:47 | NUR ---
AAOX4, INDEPENDENT IN ROOM. TELE IN PLACE, NSR. NAUSEA @ BEGINING OF SHIFT, SEE MAR. C/O R SIDE AND LUE PAIN, SEE MAR FOR INTERVENTIONS. SHOWERED THIS AM, REMINDED TO USE SOAP FOR HYGIENE. SLEPT WELL THROUGHT THE NIGHT.
[2024-10-01 06:02] LABS: Anion Gap 10 mmol/L (3-11); Blood Urea Nitrogen 26 mg/dL (8-24); Bun/Creatinine Ratio 5.1 (12.0-20.0); CO2, Blood 29 mmol/L (21-32); Calcium, Blood 8.4 mg/dL (8.5-10.1); Chloride, Blood 97 mmol/L (98-108); Creatinine, Blood 5.09 mg/dL (0.60-1.20); Glomerular Filtration Rate 15 (60-); Glucose, Blood 89 mg/dL (70-99); Magnesium, Blood 2.2 mg/dL (1.6-2.4); Potassium, Blood 3.3 mmol/L (3.5-5.5); Sodium, Blood 133 mmol/L (136-145); Vancomycin, Random 38.5 ug/mL
[2024-10-01] MEDS ORDERED: Potassium Chl 10MEQ/Water100ML 100 ML IV ONE (07:05)
[2024-10-01] MEDS ORDERED: Potassium Phosphate Dibasic 10 MM in Dextrose 5% 250 ML IV SCH (09:00)
[2024-10-01] MEDS ORDERED: OxyCODONE 5 mg/Acetamin 325 mg TABLET PO PRN (16:35)
[2024-10-01] MEDS ORDERED: HYDROmorphone HCl 0.5 MG/0.5 ML SYR IV PRN (16:35)
[2024-10-01] MEDS ORDERED: CeFAZolin Sodium 1,000 MG in NS 50 ML IV SCH (18:00)
--- NOTE | 2024-10-01 18:07 | NUR ---
SHIFT SUUMARY: PATIENT REPORTS "OVERALL, FEELING BETTER TODAY. PATIENT A/OX4, PLEASANT AND COOPERATIVE c CARE. PATIENT DENIES CP/PRESSURE, SOB, N/V AND DIZZINESS. PATIENT ON TELE, SR HR IN THE HIGH 90'S BPM. PATIENT CONTINUES TO REPORTS PAIN 8/10 TO L ARM, R/L SIDE ABDOMEN, MEDICATED PER EMAR AND PAIN DOWN TO 4/10. PATIENT HAD A MAX ORAL TEMP 99.8 THIS SHIFT. PATIENT RECEIVED OT DOSE IV K CHLO AND K PHOS PER ORDER. PATIENT RECEIVED SCHEDULED MEDS PER EMAR. VITAL SIGNS REVIEWED. CALL LIGHT IN REACH.
[2024-10-02 03:51] VITALS: BP 181/90
--- NOTE | 2024-10-02 04:02 | NUR ---
SHIFT SUMMARY NO ACUTE EVENTS DURING THIS SHIFT. PT C/O 05/05LEFT ARM PAIN R/T OLD IV SITE. NO REDNESS OR SWELLING NOTED. MEDICATED WITH PRN PO PERCOCET 10MG. PT REPORTS VERY EFFECTIVE, 02/02. PT REFUSES ICE PACKS, D/T "IT TRIGGERS MY FIBROMYALGIA", PER PT STATEMENT. TELE: ST @92. BP ELEVATED, BUT DID NOT MEET PRN HYDRAZALINE PARAMETERS TO ADMINISTER. @0400, LIGHT NOSEBLEED D/T "CLEARING THE CRUST OUT OF MY NOSTRILS" PER PT STATEMENT. COLD WASH CLOTH APPLIED, HOB ELEVATED. AFEBRILE T/ O THIS SHIFT. PT C/O FEELING FEVERISH AND WAS UNDER THE ASSUMPTION THAT HE IS FEBRILE. RU CHESTWALL DRESSING C/D/I. NO REDDNESS, HEAT, OR SWELLING NOTED. PT IS A/O X4, FLAT AFFECT, SOME ANXIETY R/T PT'S MEDICAL CONDITION NOTED. PT EDUCATION CONTINUING. BED AT THE LOWEST POSITION, CALL LIGHT W/I REACH. PT IS ABLE TO MAKE HIS NEEDS KNOWN AND IS COOPERATIVE WITH CARE.
[2024-10-02 05:15] LABS: Hematocrit 24.7 % (37.0-53.0); Hemoglobin 7.2 g/dL (13.5-17.5)
[2024-10-02 05:47] LABS: Albumin, Blood 2.6 g/dL (3.4-5.0); Anion Gap 9 mmol/L (3-11); Blood Urea Nitrogen 40 mg/dL (8-24); Bun/Creatinine Ratio 6.6 (12.0-20.0); CO2, Blood 29 mmol/L (21-32); Calcium, Blood 8.8 mg/dL (8.5-10.1); Chloride, Blood 99 mmol/L (98-108); Creatinine, Blood 6.06 mg/dL (0.60-1.20); Ferritin, Serum 793 ng/mL (26-388); Glomerular Filtration Rate 12 (60-); Glucose, Blood 105 mg/dL (70-99); Iron Serum 20 ug/dL (65-175); Magnesium, Blood 2.5 mg/dL (1.6-2.4); Percent Saturation 7.7 % (20.0-50.0); Phosphorus, Blood 1.7 mg/dL (2.5-4.9); Potassium, Blood 3.4 mmol/L (3.5-5.5); Sodium, Blood 134 mmol/L (136-145); Total Iron Binding Capacity 261 ug/dL (250-450)
[2024-10-02] MEDS ORDERED: Potassium Phosphate Dibasic 10 MM in Dextrose 5% 250 ML IV STA (07:02)
[2024-10-02 07:50] VITALS: BP 140/76
[2024-10-02] MEDS ORDERED: Sodium Phosphate 10 MM in Dextrose 5% 250 ML IV SCH (10:00)
[2024-10-02] MEDS ORDERED: Bumetanide 0.25 MG/ML 4ML ViaL IV ONE (11:35)
[2024-10-02 11:46] VITALS: BP 136/81
[2024-10-02 13:37] VITALS: BP 126/83
[2024-10-02 16:01] VITALS: BP 153/87
--- NOTE | 2024-10-02 17:08 | NUR ---
SHIFT SUMMARY: PATIENT A/OX4, PLEASANT AND COOPERATIVE c CARE. PATIENT REPORTS PAIN TO L ARM AND R SIDE OF HIS ABDOMEN, MEDICATED PER EMAR c MOD EFFECT. PATIENT L ARM HAS INCREASED RENDESS AND HARD, NOTIFIED DR. HUNTER-ORDERED HEATING PAD AND VENOUS DUPLEX SCAN STUDY. PATIENT VENOUS DUPLEX STUDY WAS DONE TODAY c RESULT. HEATING PAD IN PLACED TO L ARM AND ELEVATED ON PILLOWS T/O SHIFT. PATIENT HAD OT EPISODE OF THREWING UP THIS AM, MEDICATED FOR NAUSEA PER EMAR c GOOD EFFECT. PATIENT HAD A LOW GRADE TEMP 99.7 TAKEN ORALLY. PATIENT H/H LAB RESULT 7.2/24.7, DR. HUNTER IS AWARE OF THIS CONCERNED, ORDERED GUAIAC-STOOL. PATIENT HAS HAD NO BM THIS SHIFT. PATIENT STILL ON TELE NSR HR IN THE 90'S BPM. PATIENT DENIES CP/PRESSURE, SOB AND DIZZINESS. PATIENT CONTINENT OF BLADDER, USES URINAL INDEPENDENTLY. PATIENT RECEIVED SCHEDULED MEDS PER EMAR. VITAL SIGNS REVIEWED. CALL LIGHT IN REACH.
[2024-10-02 19:33] VITALS: BP 162/78
[2024-10-03] VITALS (8 sets, daily range): BP systolic 144–171; BP diastolic 72–96
--- NOTE | 2024-10-03 03:09 | NUR ---
SHIFT SUMMARY NO ACUTE EVENTS DURING THIS SHIFT. PT C/O 04/05 LEFT ARM PAIN AND RIGHT FLANK PAIN. MEDICATED PER EMAR. HEATING PAD APPLIED TO LEFT ARM. ELEVATED WITH PILLOWS. STOOL SAMPLE NOT COLLECTED, PT REPORTS NORMAL BOWEL HABITS IS FEW DAYS BTW. LAST REPORTED BM>2DAYS AGO. BED AT THE LOWEST POSITION, CALL LIGHT W/I REACH. AFEBRILE, PT DENIES N/V DURING THIS SHIFT.
[2024-10-03 05:23] LABS: Hematocrit 25.3 % (37.0-53.0); Hemoglobin 7.3 g/dL (13.5-17.5)
[2024-10-03 06:00] LABS: Albumin, Blood 2.6 g/dL (3.4-5.0); Anion Gap 10 mmol/L (3-11); Blood Urea Nitrogen 45 mg/dL (8-24); Bun/Creatinine Ratio 7.3 (12.0-20.0); CO2, Blood 30 mmol/L (21-32); Calcium, Blood 8.9 mg/dL (8.5-10.1); Chloride, Blood 99 mmol/L (98-108); Creatinine, Blood 6.14 mg/dL (0.60-1.20); Glomerular Filtration Rate 12 (60-); Glucose, Blood 89 mg/dL (70-99); Magnesium, Blood 2.7 mg/dL (1.6-2.4); Phosphorus, Blood 2.3 mg/dL (2.5-4.9); Potassium, Blood 3.5 mmol/L (3.5-5.5); Sodium, Blood 135 mmol/L (136-145)
[2024-10-03] MEDS ORDERED: Sodium Phosphate 10 MM in Dextrose 5% 250 ML IV STA (06:48)
--- NOTE | 2024-10-03 11:31 | NUR ---
Pt laying in bed awake a/ox4, pleasant and cooperative with care, follows commands well, reports pain to his left arm, lungs are clear t/o, resp even and unalabored, no cough noted, on r/a, hrr, tele in place running sr per monitor, see strip, no edema noted, ppp+2, cap refill <3 sec, vs stable, afebrile, piv to rac site is clear and patent, but positional, btx4, reports no bm in a few days, voids without diff, skin has pink/swollen left arm, maew, angelica, call light in reach.
[2024-10-03] MEDS ORDERED: Dose Adjust by Pharmacy XX STA (14:14)
[2024-10-03] MEDS ORDERED: Heparin Sodium,Porcine/0.5 NS 500 ML IV SCH (14:15)
[2024-10-03] MEDS ORDERED: Heparin Sodium 5000 Units/ML 1ML MDV IV ONE (14:15)
[2024-10-03 14:30] LABS: BASOPHILS ABSOLUTE AUTO 0.03 K/mm3 (0.00-0.23); BASOPHILS PERCENT AUTO 1 % (0-2); EOSINOPHILS PERCENT AUTO 5 % (0-6); IMMATURE GRAN ABSOLUTE AUTO 0.06 K/mm3 (0.00-0.10); IMMATURE GRAN PERCENT AUTO 1 % (0-1); LYMPHOCYTES ABSOLUTE AUTO 1.14 K/mm3 (0.84-5.20); LYMPHOCYTES PERCENT AUTO 19 % (21-46); MONOCYTES ABSOLUTE AUTO 0.78 K/mm3 (0.16-1.47); MONOCYTES PERCENT AUTO 13 % (4-13); Mean Corpuscular HGB 23.6 pg (26.0-34.0); Mean Corpuscular HGB Conc 29.2 g/dL (31.5-36.5); Mean Corpuscular Volume 81 fL (80-100); Mean Platelet Volume 11.8 fL (9.1-12.4); NEUTROPHILS ABSOLUTE AUTO 3.79 K/mm3 (1.96-9.15); NEUTROPHILS PERCENT AUTO 62 % (41-73); Platelet Count 151 K/mm3 (150-400); RDW Coefficient Variation 20.1 % (11.7-14.2); RDW Standard Deviation 58.3 fL (35.1-46.3); Red Blood Cell Count 2.96 M/mm3 (4.30-5.90)
[2024-10-03 14:53] LABS: International Normalized Ratio 0.91; Prothrombin Time Results 9.8 Sec (9.7-11.5)
--- NOTE | 2024-10-03 18:47 | NUR ---
pt recieved a power glide and started on a heperin gtt, this was verified by Brandi HOLCOMB, his sats dropped into the 80's after recieving two percocets while sleeping, recovererd well when woke up, but did place him on 2 liters for the afternoon. no further changes this shift. call light in reach.
[2024-10-03] MEDS ORDERED: Losartan Potassium 50 MG Tab PO SCH (21:00)
[2024-10-04] VITALS (11 sets, daily range): BP systolic 142–185; BP diastolic 84–115
[2024-10-04] MEDS ORDERED: Dose Adjust by Pharmacy XX STA ×2 (03:36→11:06)
[2024-10-04] MEDS ORDERED: Heparin Sodium 5000 Units/ML 1ML MDV IV ONE (03:40)
--- NOTE | 2024-10-04 04:20 | NUR ---
SHIFT SUMMARY NO ACUTE EVENTS DURING THIS SHIFT. PT CONTINUES ON HEPARIN DRIP, ADJUSTED DOSE TO 20U/KG/HR OR 37.6ML/HR THIS CLAIMS ATTORNEY HRS. BOLUS ADMINISTERED BY BREAK NURSE DURING EARLY AM ORDERED. PT C/O 04/05 LEFT ARM PAIN. MEDICATED PER EMAR. REDDNESS AND SWELLING NOTED. PT REPORTS ABLE TO MOVE LEFT FINGERS AND REPORTS IMPROVEMENT ON LEFT ARM. O2 @2L VIA NC. O2 SAT'S> 95%. HS MEDICATIONS CRUSHED WITH APPLESAUCE D/T C/O DIFFICULTY SWALLOWING PER PT. HOB ELEVATED. ANTIEMETICS ADMINISTERED PRIOR TO PAIN MEDICATIONS. GUAC STOOL SAMPLE NOT COLLECTED OF YET. PT DENIES CONSTIPATION, BOWEL MEDICATIONS ADMINISTERED @HS. LAST BM>2DAYS AGO PER PT REPORT. BED AT THE LOWEST POSITION, CALL LIGHT W/I REACH. PT IS A/O X4, ABLE TO MAKE HIS NEEDS KNOWN AND COOPERATIVE WITH CARE.
[2024-10-04 06:33] LABS: Hematocrit 23.4 % (37.0-53.0); Hemoglobin 6.7 g/dL (13.5-17.5)
[2024-10-04 07:18] LABS: Albumin, Blood 2.5 g/dL (3.4-5.0); Anion Gap 8 mmol/L (3-11); Blood Urea Nitrogen 49 mg/dL (8-24); Bun/Creatinine Ratio 8.3 (12.0-20.0); CO2, Blood 30 mmol/L (21-32); Calcium, Blood 8.8 mg/dL (8.5-10.1); Chloride, Blood 102 mmol/L (98-108); Creatinine, Blood 5.93 mg/dL (0.60-1.20); Glomerular Filtration Rate 12 (60-); Glucose, Blood 96 mg/dL (70-99); Magnesium, Blood 2.7 mg/dL (1.6-2.4); Phosphorus, Blood 2.6 mg/dL (2.5-4.9); Potassium, Blood 3.6 mmol/L (3.5-5.5); Sodium, Blood 136 mmol/L (136-145)
[2024-10-04] MEDS ORDERED: Lactulose 20 GM/30 ML UDC PO ONE (12:00)
[2024-10-04] MEDS ORDERED: HydrALAZINE HCl 20 MG / ML 1ML Vial IV PRN (15:15)
[2024-10-04] MEDS ORDERED: Darbepoetin Alfa In Albumn Sol 40 MCG/0.4 ML SC SCH (16:00)
[2024-10-04 17:04] LABS: Hematocrit 26.1 % (37.0-53.0); Hemoglobin 7.6 g/dL (13.5-17.5)
--- NOTE | 2024-10-04 17:06 | NUR ---
SHIFT SUMMARY PATIENT MEDICATED FREQUENTLY WITH IV AND PO MEDICATION THIS SHIFT FOR PAIN IN LEFT ARM AND FLANK PAIN. MEDICATED X2 FOR NAUSEA. DENIES SHORTNESS OF BREATH. 2L PRN FOR RESPIRATORY DEPRESSION WITH NARCOTIC PAIN MEDICATION. INEPENDENT IN ROOM. POOR APPETITE. TELE DC'D. GIVEN 1 PRBC THIS SHIFT. HEPARIN DRIP RUNNING. NPO AT MIDNIGHT FOR PERMCATH PLACEMENT TOMORROW. PLEASANT AND COOPERATIVE WITH CARE.
[2024-10-04] MEDS ORDERED: Clarify Drug Order XX ONE (19:50)
[2024-10-04] MEDS ORDERED: Lactobacil 2-S.Thermo-Bifido 1 1 Cap PO SCH (21:00)
[2024-10-05] VITALS (8 sets, daily range): BP systolic 164–210; BP diastolic 103–125
--- NOTE | 2024-10-05 00:01 | NUR ---
NEW T-ORDER FROM THE ON-CALL HOSPITALIST MARÍA: ATIVAN IV 1MG NOW, ONCE. ENTERED TO [employer], SEE EMAR. NO ADDITIONAL NEW ORDERS AT THIS TIME.
--- NOTE | 2024-10-05 00:02 | NUR ---
@2499 THIS SHIPPING AND RECEIVING SPECIALIST WENT TO THE PT'S BEDSIDE. PT PANICING, MOANING OUT LOUD, SHAKING. PER PT REPORT, THE BREAK NURSE WAS TOUCHING THE PT'S LEFT ARM"POAKING THAT CRUEL BITCH" PER PT REPORT. PER BREAK NURSE REPORT, SHE VISUALLY ASSESSED THE PT'S LEFT ARM THAT HAS THE SUPERFICIAL THROMBI AND PT IS ON HEPARIN DRIP. PT ALSO COMPLAINED OF LEFT SIDE OF CHEECK REDDENED AND RIGHT ARM HURTING. PT WAS ASSESSED BY THIS SHIPPING AND RECEIVING SPECIALIST AND ALL AVAILABLE PAIN MEDICATIONS WERE ADMINISTERED SINCE HS (AND DURING THE DAY SHIFT). THIS NURSE CALLED THE ON-CALL HOSPITALIST D/T PT REPORTING "MY PTSD IS NOW PEAKING" THIS SHIPPING AND RECEIVING SPECIALIST NOTED THAT PT SHAKING AND CRYING, MOANING WHILE LAYING IN BED. PT IS HAVING A PANIC ATTACK AND HAS MULTIPLE COMPLAINTS OF REDDENED AREAS IN THE BODY. N0N NOTED.
[2024-10-05] MEDS ORDERED: LORazepam 2 MG/ML 1ML Injection IV ONE (00:05)
[2024-10-05 01:37] LABS: Hematocrit 24.6 % (37.0-53.0); Hemoglobin 7.1 g/dL (13.5-17.5); Mean Corpuscular HGB 23.6 pg (26.0-34.0); Mean Corpuscular HGB Conc 28.9 g/dL (31.5-36.5); Mean Corpuscular Volume 82 fL (80-100); Mean Platelet Volume 10.8 fL (9.1-12.4); Platelet Count 131 K/mm3 (150-400); RDW Coefficient Variation 20.3 % (11.7-14.2); RDW Standard Deviation 59.7 fL (35.1-46.3); Red Blood Cell Count 3.01 M/mm3 (4.30-5.90); White Blood Cell Count 10.38 K/mm3 (4.00-11.30)
[2024-10-05 02:07] LABS: Albumin, Blood 2.3 g/dL (3.4-5.0); Anion Gap 10 mmol/L (3-11); Blood Urea Nitrogen 48 mg/dL (8-24); Bun/Creatinine Ratio 8.4 (12.0-20.0); CO2, Blood 28 mmol/L (21-32); Calcium, Blood 8.7 mg/dL (8.5-10.1); Chloride, Blood 105 mmol/L (98-108); Creatinine, Blood 5.72 mg/dL (0.60-1.20); Glomerular Filtration Rate 13 (60-); Glucose, Blood 119 mg/dL (70-99); Magnesium, Blood 2.7 mg/dL (1.6-2.4); Phosphorus, Blood 1.6 mg/dL (2.5-4.9); Potassium, Blood 3.7 mmol/L (3.5-5.5); Sodium, Blood 139 mmol/L (136-145)
[2024-10-05] MEDS ORDERED: Dose Adjust by Pharmacy XX STA (02:39)
--- NOTE | 2024-10-05 03:56 | NUR ---
SHIFT SUMMARY PT HAS BEEN NPO AFTER MIDNIGHT D/T PERM CATH WILL BE PLACED TODAY. @HS PT REPORTING 9/10 LEFT ARM PAIN/ SUPERFICIAL THROMBOSIS. MEDICATED PER EMAR. HEPARIN DRIP INFUSING ORDERED T/O THIS SHIFT. PT BECAME UPSET WITH THE BREAK NURSE, AND STARTED TO PANIC. PT MOANING, CRYING AND SHAKING WHILE LAYING IN BED. (SEE PREVIOUS NOTE). PER PT REPORT PTSD EPISODE. THIS DRIVE IN THEATER ATTENDANT RECEIVED A ONE-TIME ATIVAN IV ORDER. ADMINISTERED WITH GOOD EFFECTIVNESS. PT HAD A BM @SHIFT CHANGE AND STOOL SAMPLE WAS SENT TO THE LAB. RESULTS PENDING. MEDICATIONS/ LARGE TABS/ CRUSHED IN APPLE SAUCE. PT DENIES N/V, SOB DURING THIS SHIFT. BED AT THE LOWEST POSITION, CALL LIGHT W/I REACH. PT IS ABLE TO MAKE HIS NEEDS KNOWN AND IS COOPERATIVE WITH CARE.
[2024-10-05] MEDS ORDERED: Sodium Phosphate 10 MM in Dextrose 5% 250 ML IV STA (05:36)
[2024-10-05] MEDS ORDERED: Pantoprazole Sodium 40 MG Injection IV ONE ×2 (06:10→08:00)
--- NOTE | 2024-10-05 06:23 | NUR ---
APPROXIMATELY 0600 PT VOMITING RED BLOOD LOOKING EMESIS WITH MIXTURE OF FOOD. IV ZOFRAN ADMINISTERED AND IV DILAUDID PER PT REQUEST FOR PAIN IN LE 05/05. THIS CHAIRMAN AND CHIEF EXECUTIVE OFFICER CONTACTED ON-CALL HOSPITALIST ; NEW ORDERS: - PROTONIX IV 40MG NOW AND QD. -H&H Q6 STARTING @NOON TODAY. -CONTINUE HEPARIN DRIP. -D/C OMEPRAZOLE ACTIVE ORDER. DID NOT REACH PLASTER MAKER DUE TO PLASTER MAKER ALREADY IN THE MORNING REPORT. PLASTER MAKER FOR DAY SHIFT NOTIFIED.
--- NOTE | 2024-10-05 06:42 | NUR ---
NEW VERBAL ORDERS RECEIVED FROM : CREATININE STAT LAB ORDER @0800. CALL BY 0900 TO NOTIFY RESULTS. IF OR WANTS TO SUPERINTENDENT MARINE PT EARLIER FOR PERM CATH PLACEMENT- NEEDS CRE LAB STAT (BEFORE 0800) AND NOTIFY . AKA DON'T SEND PT TO OR BEFORE CRE LAB RESULTS IN AND REVIEWED BY DR. TODD. ALSO WANTS THIS SHAREPOINT APPLICATION ARCHITECT TO NOTIFY DAY SHIFT CHARGE NURSE.
[2024-10-05] MEDS ORDERED: NS 1,000 ML IV ONE (08:17)
--- NOTE | 2024-10-05 08:38 | NUR ---
NOTIFIED OF PATIENT WITH BLOODY EMESIS X2. STATES TO STOP HEPARIN GTT. WILL CONTINUE TO MONITOR.
--- NOTE | 2024-10-05 08:40 | NUR ---
NOTIFIED MD OF PATIENT'S ELEVATED BLOOD PRESSURE POST HYDRALAZINE ADMINISTRATION. MD STATES WILL COME TO BEDSIDE TO ASSESS PATIENT. WILL CONTINUE TO MONITOR.
[2024-10-05 10:07] LABS: Stool Occult Blood Guaiac 1 Neg (Neg)
[2024-10-05 12:30] LABS: Hemoglobin 7.3 g/dL (13.5-17.5)
--- NOTE | 2024-10-05 13:30 | NUR ---
NOTIFIED MD OF PATIENT'S ELEVATED BLOOD PRESSURE THROUGHOUT THE SHIFT, MD STATES WILL ADD NEW MEDICATIONS. WILL CONTINUE TO MONITOR PATIENT.
[2024-10-05] MEDS ORDERED: NIFEdipine 30 MG TabCR PO ONE (17:05)
--- NOTE | 2024-10-05 18:39 | NUR ---
SHIFT SUMMARY PATIENT A/OX4, ABLE TO MAKE NEEDS KNOWN. PLEASANT AND COOPERATIVE WITH CARE BUT ANXIOUS AT TIMES. BLOOD PRESSURE MEDICATIONS ADJUSTED THIS SHIFT, PATIENT REMAINS HYPERTENSIVE WITH DBP>100. PRN HYDRALAZINE ADMINISTERED X2 THIS SHIFT. PATIENT COMPLAINING OF PAIN TO LEFT ARM D/T THROMBUS AND RIGHT ABDOMINAL PAIN AND RIGHT HIP PAIN, MEDICATED PER SEP. PATIENT WITH TWO EPISODES OF BLOOD EMESIS, MD NOTIFIED AND HEPARIN GTT DISCONTINUED THIS AM. PROTONIX STARTED PER SEP. PATIENT NOW ON CLEAR LIQUID DIET, TOLERATING WELL. DENIES NAUSEA, BUT REQUESTING PRN NAUSEA MEDICATIONS WITH PAIN MEDICATION ADMINISTRATION. GI CONSULTED. FAMILY CAME TO VISIT THIS AFTERNOON. NO OTHER CONCERNS AT THIS TIME.
[2024-10-05 18:48] LABS: Hematocrit 26.9 % (37.0-53.0); Hemoglobin 7.9 g/dL (13.5-17.5)
[2024-10-05] MEDS ORDERED: Pantoprazole Sodium 40 MG Injection IV SCH (21:00)
[2024-10-06 00:12] VITALS: BP 183/116
[2024-10-06 03:17] VITALS: BP 160/87
--- NOTE | 2024-10-06 03:55 | NUR ---
SHIFT SUMMARY @HS, PT'S BP ELEVATED, PRN HYDRAZALINE IV 10MG ADMINISTERED. EFFECTIVE AFTER AN HOUR WHEN RECHECKED. PT C/O 04/05 YOU PAIN, MEDICATED PER EMAR T/O THIS SHIFT. PT IS ON CLEAR LIQUID DIET. DENIES N/V/ABDOMINAL PAIN. IV ON RFA REMOVED D/T INFILTRATION AND PAIN. PT TOLERATED OK C/O DISCOMFORT. PT HAS A POWER GLIDE ON ROSE, FLUSHES WELL. NO ACUTE EVENTS DURING THIS SHIFT, BED AT THE LOWEST POSITION, CALL LIGHT W/I REACH. PT IS A/O X4, ABLE TO MAKE HIS NEEDS KNOWN AND COOPERATIVE WITH CARE.
[2024-10-06 05:18] LABS: Hematocrit 24.9 % (37.0-53.0); Hemoglobin 7.2 g/dL (13.5-17.5)
[2024-10-06 05:43] LABS: Albumin, Blood 2.5 g/dL (3.4-5.0); Anion Gap 10 mmol/L (3-11); Blood Urea Nitrogen 41 mg/dL (8-24); Bun/Creatinine Ratio 7.5 (12.0-20.0); CO2, Blood 26 mmol/L (21-32); Calcium, Blood 8.8 mg/dL (8.5-10.1); Chloride, Blood 106 mmol/L (98-108); Creatinine, Blood 5.48 mg/dL (0.60-1.20); Glomerular Filtration Rate 13 (60-); Glucose, Blood 101 mg/dL (70-99); Magnesium, Blood 2.6 mg/dL (1.6-2.4); Phosphorus, Blood 2.8 mg/dL (2.5-4.9); Potassium, Blood 3.9 mmol/L (3.5-5.5); Sodium, Blood 138 mmol/L (136-145)
--- NOTE | 2024-10-06 05:59 | NUR ---
@7406 by the bedside. Today's CRE lab value:' 5.48. Per Dr. Botello, no cath today. will report this to day shift incoming nurse.
[2024-10-06] MEDS ORDERED: Pantoprazole Sodium 40 MG Injection IV SCH (06:00)
[2024-10-06 07:38] VITALS: BP 175/87
--- NOTE | 2024-10-06 08:03 | NUR ---
Right ue pT CALLED TO REPORT THAT HIS RIGHT UE DISTAL TO THE EXISTING POWER GLIDE WAS RED, HOT AND PAINFUL. oN ASSESSMENT COULD SEE THE REDNESS AND VERY FIRM AREA, CALLED DR HORNER. ORDER FOR RIGHT UE ULTRASOUND RECEIVED, INFORMED PT OF THE PLAN OF CARE. PT AGREEABLE. CARE ONGOING.
[2024-10-06] MEDS ORDERED: NIFEdipine 30 MG TabCR PO SCH (09:00)
--- NOTE | 2024-10-06 09:21 | NUR ---
VENOUS DUPLEX COMPLETEDTO RIGHT ARM AND THROMBUS FOUND. MD NOTIFIED VIA TELEPHONE AND STATES WILL CONFER WITH TEAM. INFORMED MD THAT NO IV MEDICATIONS HAVE BEEN ADMINISTERED.
[2024-10-06] MEDS ORDERED: NIFEdipine 60 MG TabCR PO ONE (10:00)
--- NOTE | 2024-10-06 10:55 | NUR ---
CALLED MD TO CHANGE DIET TO RENAL DIET PER PATIENT REQUEST, PATIENT WITH NO MORE EMESIS SINCE YESTERDAY AM. MD STATES WILL CHANGE ORDER. ALSO REQUESTED HEMATOLOGY CONSULT DUE TO BILATERAL UPPER EXTREMITY THROMBI. WILL CONTINUE TO MONITOR.
[2024-10-06 15:00] VITALS: BP 149/89
[2024-10-06 17:21] VITALS: BP 137/77
--- NOTE | 2024-10-06 18:49 | NUR ---
SHIFT SUMMARY PATIENT A/OX4, ABLE TO MAKE NEEDS KNOWN. PLEASANT AND COOPERATIVE WITH CARE. VENOUS DUPLEX TO RIGHT UPPER EXTREMITY FOUND SVT NEAR PREVIOUS IV SITE THAT WAS REMOVED LAST NIGHT. THIS AM PRIOR TO RESULTS OF VENOUS DUPLEX RESULTING ALL IV MEDICATIONS WERE HELD. ONCE RESULTS WERE IN MD STATED POWERGLIDE OKAY TO USE. POWERGLIDE CONTINUES TO FUNCTION PROPERLY. CONTINUES ON IV ABX, PLAN TO DISCHAREG TOMORROW. PATIENT WITH SHOWER THIS AM. COMPLAINING OF PAIN TO LEFT ARM SVT, MEDICATED PER MAR WITH NAUSEA MEDICATIONS WELL. FAMILY CAME TO VISIT PATIENT THIS EVENING. NO OTHER CONCERNS AT THIS TIME.
[2024-10-06 19:18] VITALS: BP 165/94
[2024-10-07 03:20] VITALS: BP 169/97
--- NOTE | 2024-10-07 03:57 | NUR ---
JEWELRY SALES REPRESENTATIVE SUMMARY BP ELEVATED, OTHERWISE VSS. VOICED BP BETTER THAN USUAL. ALERT AND ORIENTED. CONTINUES TO VOICE PAIN THROUGHOUT BODY, RECEIVING PAIN MEDS AND ANTIEMETICS THROUGHOUT SHIFT - SEE MAR FOR DETAILS. ABLE TO TOLERATE SMALL MEDS WHOLE, BUT THE LARGER ONES, NEED CRUSHED, TAKES MEDS IN APPLESAUCE HE STATED, DUE TO SWALLOWING ISSUES. UP AD MACIEJ, ABLE TO REPOSITION SELF IN BED WITHOUT ASSIST FOR COMFORT. HAS BEEN RESTING QUIETLY AT INTERVALS WHEN PAIN ADDRESSED. CALL LIGHT IN REACH, RAILS UP X 2 AND BED IN LOW POSITION FOR SAFETY. WILL CONTINUE TO MONITOR.
[2024-10-07 04:58] LABS: Hematocrit 25.5 % (37.0-53.0); Hemoglobin 7.4 g/dL (13.5-17.5)
[2024-10-07 05:17] LABS: Albumin, Blood 2.8 g/dL (3.4-5.0); Anion Gap 10 mmol/L (3-11); Blood Urea Nitrogen 42 mg/dL (8-24); CO2, Blood 25 mmol/L (21-32); Calcium, Blood 8.9 mg/dL (8.5-10.1); Chloride, Blood 106 mmol/L (98-108); Creatinine, Blood 5.27 mg/dL (0.60-1.20); Glomerular Filtration Rate 14 (60-); Glucose, Blood 87 mg/dL (70-99); Magnesium, Blood 2.6 mg/dL (1.6-2.4); Phosphorus, Blood 3.2 mg/dL (2.5-4.9); Potassium, Blood 4.2 mmol/L (3.5-5.5); Sodium, Blood 137 mmol/L (136-145)
--- NOTE | 2024-10-07 06:41 | NUR ---
DR TODD VISITED PT IN ROOM, VOICED WANTED PT TO SCHEDEULE APPT WITH HIS OFFICE "THURSDAY AT 2 PM". WILL ASK AM NURSE TO FOLLOW THROUGH.
[2024-10-07 07:19] VITALS: BP 182/132
[2024-10-07] MEDS ORDERED: NIFEdipine 60 MG TabCR PO SCH ×2 (09:00)
[2024-10-07] MEDS ORDERED: NIFEdipine 90 MG TabCR PO SCH (09:00)
[2024-10-07 10:53] VITALS: BP 192/110
[2024-10-07 10:57] VITALS: BP 189/98
[2024-10-07 11:15] VITALS: BP 149/99
[2024-10-07 13:49] VITALS: BP 160/89
[2024-10-07] MEDS ORDERED: PANT40 PO ×2 (14:19)
[2024-10-07] MEDS ORDERED: CEFAZOLIN SODIUM1 G1 IV ×2 (14:35)
[2024-10-07] MEDS ORDERED: ARANESP25 MCG/0.1 ×2 (14:38)
[2024-10-07] MEDS ORDERED: Percocet 5-3251 EACH PO ×2 (14:39)
[2024-10-07] MEDS ORDERED: LOSA50 PO ×2 (14:39)
[2024-10-07] MEDS ORDERED: VISBIOME 112.51 EACH PO ×2 (14:40)
[2024-10-07] MEDS ORDERED: CeFAZolin Sodium 1,000 MG in NS 50 ML IV ONE (15:00)
--- NOTE | 2024-10-07 17:08 | NUR ---
SHIFT/DISCHARGE SUMMARY: PATIENT HAS HAD NO NEW CHANGES THIS SHIFT. PATIENT MEDICATED X1 FOR PAIN TO L ARM. PATIENT L ARM STILL HARD AND REDNESS HAS IMPROVED. PATIENT RECEIVED IV ABX PRIOR TO DISCHARGE. PATIENT DENIES CP/PRESSURE, SOB, N/V AND DIZZINESS. PATIENT HAS GOOD APPETITE, CONTINENT OF BLADDER, AMBULATES TO BATHROOM INDEPENDENTLY T/O SHIFT. VITAL SIGNS REVIEWED. PATIENT DISCHARGING c POWERGLIDE TO [facility]. PATIENT ON IV ABX FOR 6 DAYS AT [facility]; FIRST APPT TOMORROW AT 0830. PATIENT DISCHARGE HOME. DISCHARGE INSTRUCTIONS PACKET INCLUDING PERCOCET HARD SCRIPTS GIVEN TO PATIENT. PATIENT EDUCATED c ADMITTING DX'S OF HYPERTENSIVE EMERGENCY, S/S, TX, NEW RX, F/U c PCP AND NEPHROLOGY. PATIENT VERBALIZED UNDERSTANDING AND NO FURTHER QUESTIONS. ALL PERSONAL BELONGINGS WERE SENT HOME c THE PATIENT. PATIENT LEFT THE ROOM AT 1615, TRANSPORTED VIA W/CHAIR BY ROBERT TO PATIENT ENTRANCE.
== END 2024-10-07 16:02 | disposition home or self-care (01) | DRG 673 ==
LOC: ER 00:18 → MEDS 02:00 → ERHOLD 02:00 → MEDS 17:04 → ENPENDDIS 10-07 14:27 → MEDS 10-07 16:02
PROVIDERS: Family Medicine; Internal Medicine; Internal Medicine Nephrology; Registered Nurse; Student in an Organized Health Care Education/Training Program; ADMIT Student in an Organized Health Care Education/Training Program
PROC: 0JH63XZ Insertion of Tunneled Vascular Access Device into Chest Subcutaneous Tissue and Fascia, Percutaneous Approach (ICD-10-PCS; principal; 2024-09-28)
PROC: 02HV33Z Insertion of Infusion Device into Superior Vena Cava, Percutaneous Approach (ICD-10-PCS; 2024-09-28)
PROC: 5A1D70Z Performance of Urinary Filtration, Intermittent, Less than 6 Hours Per Day (ICD-10-PCS; 2024-09-28)
PROC: 30233N1 Transfusion of Nonautologous Red Blood Cells into Peripheral Vein, Percutaneous Approach (ICD-10-PCS; 2024-09-28)
DX: N17.9 Acute kidney failure, unspecified (principal); A41.2 Sepsis due to unspecified staphylococcus; Q39.1 Atresia of esophagus with tracheo-esophageal fistula; I16.1 Hypertensive emergency; Z16.11 Resistance to penicillins; E87.1 Hypo-osmolality and hyponatremia; I12.0 Hypertensive chronic kidney disease with stage 5 chronic kidney disease or end stage renal disease; E83.52 Hypercalcemia; E83.39 Other disorders of phosphorus metabolism; E87.6 Hypokalemia; N25.81 Secondary hyperparathyroidism of renal origin; M79.7 Fibromyalgia; G43.909 Migraine, unspecified, not intractable, without status migrainosus; R31.9 Hematuria, unspecified; L29.89 Other pruritus; N18.6 End stage renal disease; K20.90 Esophagitis, unspecified without bleeding; F31.9 Bipolar disorder, unspecified; K21.9 Gastro-esophageal reflux disease without esophagitis; I80.8 Phlebitis and thrombophlebitis of other sites; D63.1 Anemia in chronic kidney disease; D50.9 Iron deficiency anemia, unspecified; Z98.890 Other specified postprocedural states; Z88.8 Allergy status to other drugs, medicaments and biological substances; Z79.899 Other long term (current) drug therapy; Z90.49 Acquired absence of other specified parts of digestive tract; Z99.2 Dependence on renal dialysis
CPT/HCPCS: 36415; 36430; 71045; 74150; 76937; 80053; 80069; 80074; 80202; 81001; 82272; 82330; 82565; 82728; 83540; 83550; 83605; 83690; 83735; 84100; 85014; 85018; 85025; 85610; 85730; 86480; 86704; 86707; 86850; 86900; 86901; 86923; 87040; 87077; 87086; 87147; 87186; 87340; 87350; 87428-QW; 93005; 93010; 93306; 93971; 94760; 94762; 96374; 96375; 99152; 99285-25; A9270; C1750; C1751; C1769; C1894; J0360; J0690; J0881; J1171; J1200; J1644; J2060; J2250; J2270; J2405; J2470; J2765; J2916; J3010; J3370; J3480; J7030; J7040; J7050; J7060; J7120; P9016

== ENCOUNTER 2024-10-08 04:51 | Day surgery (SDC) | payer OTHER ==
[~2024-10-08 04:51] MED LIST changes: +ARANESP25 MCG/0.1; +CEFAZOLIN SODIUM1 G1 IV; +LOSA50 PO; +VISBIOME 112.51 EACH PO
[2024-10-08] MEDS ORDERED: CeFAZolin Sodium 1,000 MG in NS 50 ML IV SCH (06:00)
[2024-10-08 08:38] VITALS: BP 176/109
== END 2024-10-08 08:58 | disposition home or self-care (01) ==
LOC: ATC 04:51
DX: A41.01 Sepsis due to Methicillin susceptible Staphylococcus aureus (principal); I12.9 Hypertensive chronic kidney disease with stage 1 through stage 4 chronic kidney disease, or unspecified chronic kidney disease; N18.9 Chronic kidney disease, unspecified; F31.9 Bipolar disorder, unspecified; K21.9 Gastro-esophageal reflux disease without esophagitis; G43.909 Migraine, unspecified, not intractable, without status migrainosus; M79.7 Fibromyalgia; G40.909 Epilepsy, unspecified, not intractable, without status epilepticus; Z79.899 Other long term (current) drug therapy; Z88.8 Allergy status to other drugs, medicaments and biological substances; Z90.49 Acquired absence of other specified parts of digestive tract; Z86.73 Personal history of transient ischemic attack (TIA), and cerebral infarction without residual deficits
CPT/HCPCS: 96365; J0690

== ENCOUNTER 2024-10-09 03:56 | Day surgery (SDC) | payer OTHER ==
[2024-10-09] MEDS ORDERED: CeFAZolin Sodium 1,000 MG in NS 50 ML IV SCH (06:00)
[2024-10-09 08:30] VITALS: BP 175/106
== END 2024-10-09 08:55 | disposition home or self-care (01) ==
LOC: ATC 03:56
DX: A41.01 Sepsis due to Methicillin susceptible Staphylococcus aureus (principal); F31.9 Bipolar disorder, unspecified; I10 Essential (primary) hypertension; K21.9 Gastro-esophageal reflux disease without esophagitis; N17.9 Acute kidney failure, unspecified; I16.1 Hypertensive emergency; Q61.3 Polycystic kidney, unspecified; I12.9 Hypertensive chronic kidney disease with stage 1 through stage 4 chronic kidney disease, or unspecified chronic kidney disease; N18.9 Chronic kidney disease, unspecified; Z72.0 Tobacco use; Z88.8 Allergy status to other drugs, medicaments and biological substances; Z79.899 Other long term (current) drug therapy
CPT/HCPCS: 96365; J0690

== ENCOUNTER 2024-10-11 00:15 | Day surgery (SDC) | payer OTHER ==
[2024-10-11 08:25] VITALS: BP 150/102
[2024-10-11] MEDS ORDERED: CeFAZolin Sodium 1,000 MG in NS 50 ML IV SCH (08:35)
== END 2024-10-11 08:42 | disposition home or self-care (01) ==
LOC: ATC 00:15
DX: A41.01 Sepsis due to Methicillin susceptible Staphylococcus aureus (principal); I12.9 Hypertensive chronic kidney disease with stage 1 through stage 4 chronic kidney disease, or unspecified chronic kidney disease; N18.4 Chronic kidney disease, stage 4 (severe); D63.1 Anemia in chronic kidney disease; G40.909 Epilepsy, unspecified, not intractable, without status epilepticus; F31.9 Bipolar disorder, unspecified; K21.9 Gastro-esophageal reflux disease without esophagitis; G43.909 Migraine, unspecified, not intractable, without status migrainosus; M79.7 Fibromyalgia; E78.00 Pure hypercholesterolemia, unspecified; N18.30 Chronic kidney disease, stage 3 unspecified; N25.81 Secondary hyperparathyroidism of renal origin; E55.9 Vitamin D deficiency, unspecified; R73.9 Hyperglycemia, unspecified; R94.5 Abnormal results of liver function studies; R94.6 Abnormal results of thyroid function studies; D51.8 Other vitamin B12 deficiency anemias; D52.8 Other folate deficiency anemias; D50.9 Iron deficiency anemia, unspecified; Z88.8 Allergy status to other drugs, medicaments and biological substances; Z90.49 Acquired absence of other specified parts of digestive tract; Z86.73 Personal history of transient ischemic attack (TIA), and cerebral infarction without residual deficits; Z79.899 Other long term (current) drug therapy
CPT/HCPCS: 36415; 80053; 82248; 83036; 84100; 84153; 84443; 85025; 96365; J0690

== ENCOUNTER 2024-10-12 01:55 | Day surgery (SDC) | payer OTHER ==
[~2024-10-12 01:55] MED LIST changes: +CeFAZolin Sodium 1,000 MG in NS 50 ML IV SCH
[2024-10-12] MEDS ORDERED: CeFAZolin Sodium 1,000 MG in NS 50 ML IV SCH (06:00)
[2024-10-12 08:24] VITALS: BP 170/99
== END 2024-10-12 08:50 | disposition home or self-care (01) ==
LOC: ATC 01:55
DX: A41.01 Sepsis due to Methicillin susceptible Staphylococcus aureus (principal); I12.0 Hypertensive chronic kidney disease with stage 5 chronic kidney disease or end stage renal disease; N18.5 Chronic kidney disease, stage 5; D63.1 Anemia in chronic kidney disease; Q61.3 Polycystic kidney, unspecified; K21.9 Gastro-esophageal reflux disease without esophagitis; F31.9 Bipolar disorder, unspecified; Q39.0 Atresia of esophagus without fistula; Z88.8 Allergy status to other drugs, medicaments and biological substances; Z79.899 Other long term (current) drug therapy
CPT/HCPCS: 96365; J0690

== ENCOUNTER 2024-10-28 07:10 | Day surgery (SDC) | payer OTHER ==
[2024-10-28] VITALS (7 sets, daily range): BP systolic 166–232; BP diastolic 113–160
[~2024-10-28] VITALS: Ht 177.8 cm; Wt 92.8 kg
[~2024-10-28 07:10] MED LIST changes: -CeFAZolin Sodium 1,000 MG in NS 50 ML IV SCH
[2024-10-28] MEDS ORDERED: AMLO5 PO (07:14)
[2024-10-28] MEDS ORDERED: OMEP20ER PO (07:17)
[2024-10-28] MEDS ORDERED: PREG75 PO (07:19)
[2024-10-28] MEDS ORDERED: NS 250 ML IV ONE (09:34)
[2024-10-28] MEDS ORDERED: Heparin Sodium 1000 Units/ML 10ML MDV ONE (09:34)
[2024-10-28] MEDS ORDERED: Midazolam HCl 1MG / ML 2ML Vial ONE (09:44)
[2024-10-28] MEDS ORDERED: NS 500 ML IV ONE (09:44)
[2024-10-28] MEDS ORDERED: FentaNYL Citrate 50 MCG/ML 2 ML Injection ONE (09:44)
[2024-10-28] MEDS ORDERED: HydrALAZINE HCl 20 MG / ML 1ML Vial ONE (10:02)
[2024-10-28] MEDS ORDERED: Heparin Sodium 10,000 Units/ML 1ML MDV ONE (10:07)
[2024-10-28] MEDS ORDERED: CeFAZolin Sodium 2,000 MG VIAL ONE (10:27)
[2024-10-28] MEDS ORDERED: NS 100 ML IV ONE (10:28)
--- NOTE | 2024-10-28 11:13 | NUR ---
PT AMBULATES TO RESTROOM WITHOUT DIFF. PT R IJ/ PERMA CATHETER SITE REMAINS CLEAR. NADN. PT VERBALIZES UNDERSTANDING WRITTEN AND VERBAL INSTRUCTIONS. NO QUESTIONS OR CONCERNS. PT IV DC'D. CATH INTACT. PRESSURE DSG APPLIED. PT DC TO HOME VIA WC BY FRIEND.
== END 2024-10-28 11:17 | disposition home or self-care (01) ==
LOC: MHTC 07:10
DX: I12.0 Hypertensive chronic kidney disease with stage 5 chronic kidney disease or end stage renal disease (principal); N18.6 End stage renal disease; F32.A Depression, unspecified; Z88.8 Allergy status to other drugs, medicaments and biological substances; Z79.899 Other long term (current) drug therapy
CPT/HCPCS: 36558; 76937; 77001; 99152; 99153; C1750; C1769; C1894; J0360; J0690; J1644; J2250; J3010; J7040; J7050; Q9967

== ENCOUNTER 2025-03-05 21:45 | Emergency (ER) | payer OTHER ==
[~2025-03-05] VITALS: Ht 172.7 cm; Wt 100.7 kg
[2025-03-05 22:15] LABS: BASOPHILS ABSOLUTE AUTO 0.10 K/mm3 (0.00-0.23); BASOPHILS PERCENT AUTO 1 % (0-2); EOSINOPHILS ABSOLUTE AUTO 0.49 K/mm3 (0.00-0.68); EOSINOPHILS PERCENT AUTO 5 % (0-6); Hematocrit 33.4 % (37.0-53.0); Hemoglobin 11.4 g/dL (13.5-17.5); IMMATURE GRAN ABSOLUTE AUTO 0.03 K/mm3 (0.00-0.10); IMMATURE GRAN PERCENT AUTO 0 % (0-1); LYMPHOCYTES ABSOLUTE AUTO 1.73 K/mm3 (0.84-5.20); LYMPHOCYTES PERCENT AUTO 19 % (21-46); MONOCYTES ABSOLUTE AUTO 0.60 K/mm3 (0.16-1.47); MONOCYTES PERCENT AUTO 7 % (4-13); Mean Corpuscular HGB Conc 34.1 g/dL (31.5-36.5); Mean Corpuscular Volume 94 fL (80-100); NEUTROPHILS ABSOLUTE AUTO 6.25 K/mm3 (1.96-9.15); NEUTROPHILS PERCENT AUTO 68 % (41-73); NRBC ABSOLUTE 0.00 K/mm3 (0.00-0.02); NRBC Auto 0.0 /100 WBC (0.0-0.2); Platelet Count 216 K/mm3 (150-400); RDW Coefficient Variation 13.3 % (11.7-14.2); RDW Standard Deviation 46.1 fL (35.1-46.3)
[2025-03-05 22:30] LABS: Alanine Aminotransfer (ALT/SGP 43.0 U/L (12-78); Albumin, Blood 3.5 g/dL (3.4-5.0); Albumin/Globulin Ratio 0.9 (0.8-1.8); Anion Gap 11.0 mmol/L (3-11); Aspartate Aminotrans (AST/SGOT 24.0 U/L (12-37); Bilirubin, Total 0.3 mg/dL (0.1-1.0); Blood Urea Nitrogen 38.0 mg/dL (8-24); CO2, Blood 27.0 mmol/L (21-32); Calcium, Blood 8.6 mg/dL (8.5-10.1); Chloride, Blood 105.0 mmol/L (98-108); Creatinine, Blood 7.59 mg/dL (0.60-1.20); Globulin, Blood 4.1 g/dL (2.2-4.0); Glucose, Blood 87.0 mg/dL (70-99); Potassium, Blood 3.6 mmol/L (3.5-5.5); Sodium, Blood 139.0 mmol/L (136-145); Total Protein, Blood 7.6 g/dL (6.4-8.2)
[2025-03-05] MEDS ORDERED: Morphine Sulfate 4 MG/1 ML Injection IV ONE (23:10)
[2025-03-05 23:14] LABS: Prothrombin Time Results 10.7 Sec (9.7-11.5)
[2025-03-06 00:15] VITALS: BP 202/132
== END 2025-03-06 01:41 | disposition home or self-care (01) ==
LOC: ER 21:45
PROVIDERS: Emergency Medicine; Student in an Organized Health Care Education/Training Program
DX: R07.89 Other chest pain (principal); I12.0 Hypertensive chronic kidney disease with stage 5 chronic kidney disease or end stage renal disease; N18.6 End stage renal disease; Z99.2 Dependence on renal dialysis; K21.9 Gastro-esophageal reflux disease without esophagitis; Z88.8 Allergy status to other drugs, medicaments and biological substances; Z79.2 Long term (current) use of antibiotics; Z79.899 Other long term (current) drug therapy
CPT/HCPCS: 71260; 80053; 84484; 85025; 85610; 85730; 93005; 93010; 96374-59; 99285-25; J2270; Q9967

== ENCOUNTER 2025-04-26 09:41 | Emergency (ER) | payer OTHER ==
[~2025-04-26] VITALS: Ht 172.7 cm; Wt 102.0 kg
[2025-04-26 10:03] LABS: BASOPHILS ABSOLUTE AUTO 0.08 K/mm3 (0.00-0.23); BASOPHILS PERCENT AUTO 1 % (0-2); EOSINOPHILS ABSOLUTE AUTO 0.55 K/mm3 (0.00-0.68); EOSINOPHILS PERCENT AUTO 7 % (0-6); Hematocrit 32.7 % (37.0-53.0); Hemoglobin 11.8 g/dL (13.5-17.5); IMMATURE GRAN ABSOLUTE AUTO 0.01 K/mm3 (0.00-0.10); IMMATURE GRAN PERCENT AUTO 0 % (0-1); LYMPHOCYTES ABSOLUTE AUTO 2.10 K/mm3 (0.84-5.20); LYMPHOCYTES PERCENT AUTO 28 % (21-46); MONOCYTES ABSOLUTE AUTO 0.55 K/mm3 (0.16-1.47); MONOCYTES PERCENT AUTO 7 % (4-13); Mean Corpuscular HGB Conc 36.1 g/dL (31.5-36.5); Mean Corpuscular Volume 91 fL (80-100); NEUTROPHILS ABSOLUTE AUTO 4.16 K/mm3 (1.96-9.15); NEUTROPHILS PERCENT AUTO 56 % (41-73); NRBC ABSOLUTE 0.00 K/mm3 (0.00-0.02); NRBC Auto 0.0 /100 WBC (0.0-0.2); Platelet Count 238 K/mm3 (150-400); RDW Coefficient Variation 12.6 % (11.7-14.2); RDW Standard Deviation 41.6 fL (35.1-46.3)
[2025-04-26 10:34] LABS: Alanine Aminotransfer (ALT/SGP 33.0 U/L (12-78); Albumin, Blood 4.2 g/dL (3.4-5.0); Albumin/Globulin Ratio 1.1 (0.8-1.8); Anion Gap 9.0 mmol/L (3-11); Aspartate Aminotrans (AST/SGOT 24.0 U/L (12-37); Bilirubin, Total 0.6 mg/dL (0.1-1.0); Blood Urea Nitrogen 27.0 mg/dL (8-24); CO2, Blood 29.0 mmol/L (21-32); Calcium, Blood 9.1 mg/dL (8.5-10.1); Chloride, Blood 99.0 mmol/L (98-108); Creatinine, Blood 4.4 mg/dL (0.60-1.20); Globulin, Blood 3.8 g/dL (2.2-4.0); Glucose, Blood 85.0 mg/dL (70-99); Potassium, Blood 3.1 mmol/L (3.5-5.5); Sodium, Blood 134.0 mmol/L (136-145); Total Protein, Blood 8.0 g/dL (6.4-8.2)
[2025-04-26] MEDS ORDERED: HYDROcodone 5-APAP 325 TAB PO ONE (15:30)
[2025-04-26 15:57] VITALS: BP 156/124
== END 2025-04-26 15:55 | disposition home or self-care (01) ==
LOC: ER 09:41
PROVIDERS: Physician Assistant
DX: R07.9 Chest pain, unspecified (principal); I10 Essential (primary) hypertension
CPT/HCPCS: 71046; 80053; 83690; 84484; 85025; 93005; 93010; 99285-25; A9270

== ENCOUNTER 2025-06-08 09:51 | Emergency (ER) | payer OTHER | END 2025-06-08 13:23 | disposition home or self-care (01) | LOC: ER 09:51 | DX: M50.122 Cervical disc disorder at C5-C6 level with radiculopathy (principal); K21.9 Gastro-esophageal reflux disease without esophagitis; I12.9 Hypertensive chronic kidney disease with stage 1 through stage 4 chronic kidney disease, or unspecified chronic kidney disease; N18.4 Chronic kidney disease, stage 4 (severe); Z79.899 Other long term (current) drug therapy ==